=== PATIENT | female | born 1985 | race Caucasian/White ===

== ENCOUNTER 2020-07-02 11:32 | Emergency (ER) | payer OTHER, SELFPAY ==
--- NOTE | 2020-07-02 11:50 | XR_ITS ---
EXAMINATION: XR LUMBOSACRAL SPINE CLINICAL INFORMATION: Low back pain COMPARISON: Previous x-ray April 2019 TECHNIQUE: Three views of the lumbosacral spine. FINDINGS: Bone alignment is normal. No fracture or dislocation is seen. Disc spaces are normal. Paraspinal soft tissues are normal. XR/XR lumbar spine 2-3V IMPRESSION: Unremarkable examination.
[2020-07-02 12:22] LABS: Glucose Urine UA NEG (NEG); Leukocyte Esterase Urine 1+ (NEG); Nitrite Urine NEG (NEG); PH 6.5 (5.0-8.0); Specific Gravity - Urine 1.025 (1.005-1.025); Urine Blood NEG (NEG); Urine Ketones NEG (NEG); Urine Protein NEG (NEG-TRACE)
[2020-07-02] MEDS: Lidocaine 4 % Patch ADH..PATCH 1 PATCH TRANSDERMA (12:26)
[2020-07-02 12:27] VITALS: BP 118/79; PULSE 75; RESP 16; TEMP 36.5; O2SAT 98; BMI 35.1
[2020-07-02 12:29] LABS: Appearance Urine CLEAR; Color Urine YELLOW
[2020-07-02] MEDS: Ketorolac Tromethamine 60 MG/2 ML VIAL IM (12:43)
[2020-07-02 13:12] LABS: Bacteria Urine TRACE /LPF; RBC Urine 0 /HPF (0); Squamous Epithelial Cell Urine 2+ /LPF
--- NOTE | 2020-07-02 13:30 | ED_ITS ---
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 Pain is nonradiating mostly on her right side of the back. Also reports that she has had slight burning-like discomfort with voids. No abdominal pain, fever, chills. <Yuan Gaspar NP - Last Filed: 07/02/20 15:00> MD elicited complaint: back injury <Yuan Gaspar NP - Last Filed: 07/02/20 15:00> Pertinent past history: prior back pain <Yuan Gaspar NP - Last Filed: 07/02/20 15:00> Onset (ago): day(s) <Yuan Gaspar NP - Last Filed: 07/02/20 15:00> Timing: intermittent <Yuan Gaspar NP - Last Filed: 07/02/20 15:00> Severity: mild <Yuan Gaspar NP - Last Filed: 07/02/20 15:00> Similar Symptoms Previously: Yes <Yuan Gaspar NP - Last Filed: 07/02/20 15:00> Quality: burning <Yuan Gaspar NP - Last Filed: 07/02/20 15:00> Location: lumbar spine <Yuan Gaspar NP - Last Filed: 07/02/20 15:00> Radiation: none <Yuan Gaspar NP - Last Filed: 07/02/20 15:00> Exacerbating factors: movement <Yuan Gaspar NP - Last Filed: 07/02/20 15:00> Relieving factors: immobilization <Yuan Gaspar NP - Last Filed: 07/02/20 15:00> Context: while lifting and turning/twisting <Yuan Gaspar NP - Last Filed: 07/02/20 15:00> Associated symptoms: denies other symptoms <Yuan Gaspar NP - Last Filed: 07/02/20 15:00> Treatments prior to arrival: cold therapy <Yuan Gaspar NP - Last Filed: 07/02/20 15:00> Work related injury: Yes <Yuan Gaspar NP - Last Filed: 07/02/20 15:00> Related Data Home Medications: Previous Rx's Medication Instructions Recorded cyclobenzaprine 10 mg PO TID PRN #20 tab 07/02/20 ibuprofen 800 mg PO Q8H PRN #30 tab 07/02/20 lidocaine 1 patch TOPICAL Q24H PRN #10 ea 07/02/20 nitrofurantoin monohyd/m-cryst 100 mg PO Q12H 7 Days #14 cap 07/02/20 [Macrobid] nitrofurantoin monohyd/m-cryst 100 mg PO Q12H 7 Days #14 cap 07/02/20 [Macrobid] <Yuan Gaspar NP - Last Filed: 07/02/20 15:00> Allergies/Adverse Reactions: Allergies Allergy/AdvReac Type Severity Reaction Status Date / Time aspirin [ASPIRIN] Allergy Unknown DUE TO Unverified 05/02/20 18:36 KIDNEY FUNCTION (PT HAS 1 KIDNEY) NSAIDS (Non-Steroidal Allergy Unknown KIDNEY Unverified 05/02/20 18:36 Anti-Inflamma FUNCTION [NSAIDS (NON-STEROIDAL ANTI-INFLAMMA] oranges Allergy Unknown Uncoded 06/23/16 00:00 pt states no medication Allergy Unknown Uncoded 06/23/16 00:00 allerg strawberries Allergy Unknown Uncoded 06/23/16 00:00 <Yuan Gaspar NP - Last Filed: 07/02/20 15:00> Review of Systems Review of Systems: Constitutional: No Weight loss, No Fever, No Chills, No Night Sweats, No Fatigue, No Malaise ENT/Mouth: No Nasal Congestion, No Sinus Pain, No Hoarseness, No sore throat, No Rhinorrhea, No Swallowing Difficulty Eyes: No Eye Pain, No Swelling, No Redness, No Foreign Body, No Discharge, No Vision Changes Cardiovascular: No Chest Pain, No SOB, No Dyspnea on Exertion, No Orthopnea, No Edema, No Palpitations Respiratory: No Cough, No Sputum, No Wheezing, No Smoke Exposure, No Dyspnea Gastrointestinal: No Nausea, No Vomiting, No Diarrhea, No Constipation, No abdominal Pain, No Hematochezia, No Melena Genitourinary: no irregular bleeding, + Dysuria, No Urinary Frequency, No Hematuria, No Urinary Incontinence, No Urgency, No Flank Pain, No Urinary Flow Changes, No Hesitancy Musculoskeletal: As noted in HPI Skin: No Skin Lesions, No rash Neuro: No Weakness, No Numbness, No Paresthesias, No Loss of Consciousness, No Dizziness, No Headache Heme/Lymph: No Bruising, No Bleeding,No Lymphadenopathy Endocrine: No Polyuria, No Polydipsia, No Temperature Intolerance <Yuan Gaspar NP - Last Filed: 07/02/20 15:00> Yes all other systems are reviewed and are negative <Yaun Gaspar NP - Last Filed: 07/02/20 15:00> [facility] Past Medical History Attestation statement: The following information was validated with the patient. <Yuan Gaspar NP - Last Filed: 07/02/20 15:00> Medical History: Medical History (Updated 07/03/20 @ 00:00 by Hunter Powell) Congenital absence of kidney <Yuan Gaspar NP - Last Filed: 07/02/20 15:00> Surgical History: Surgical History (Updated 07/02/20 @ 12:30 by Soha Henriquez) H/O tubal ligation <Yuan Gaspar NP - Last Filed: 07/02/20 15:00> Social History Social History: Social History Advance Directives: No Advance Directives Information Provided: No <Yuan Gaspar NP - Last Filed: 07/02/20 15:00> Physical Exam Vital Signs: Vital Signs: Last Vital Signs Temp 97.7 F 07/02/20 12:27 Pulse 75 07/02/20 12:27 Resp 16 07/02/20 12:27 BP 118/79 11/17/20 12:27 Pulse Ox 98 07/02/20 12:27 Body Mass Index 35.1 Reviewed <Yuan Gaspar NP - Last Filed: 07/02/20 15:00> Vital Signs: Last Vital Signs Temp 97.7 F 07/02/20 12:27 Pulse 75 07/02/20 12:27 Resp 16 07/02/20 12:27 BP 118/79 07/02/20 12:27 Pulse Ox 98 07/02/20 12:27 Body Mass Index 35.1 <Michael Bosch MD - Last Filed: 07/08/20 15:49> Const: General: cooperative and healthy appearing; No acute distress or intoxicated appearing <Yuan Gaspar NP - Last Filed: 07/02/20 15:00> Nutritional Appearance: average body habitus <Yuan Gaspar NP - Last Filed: 07/02/20 15:00> Orientation/consciousness: patient oriented x3 <Yuan Gaspar NP - Last Filed: 07/02/20 15:00> HENMT: Head: Yes normal to inspection <Yuan Gaspar NP - Last Filed: 07/02/20 15:00> Ears: hearing grossly normal bilaterally <Yuan Gaspar NP - Last Filed: 07/02/20 15:00> Eyes: General: appearance normal, both eyes and all related structures <Yuan Gaspar NP - Last Filed: 07/02/20 15:00> Visual Paez: normal visual paez by confrontation <Yuan Gaspar NP - Last Filed: 07/02/20 15:00> Neck: Neck: Yes normal visual inspection and No tender <Yuangabriel Gaspar NP - Last Filed: 07/02/20 15:00> Thyroid: Thyroid normal <Yuan SUZANNE Gaspar - Last Filed: 07/02/20 15:00> Chest: Chest palpation & inspection: normal inspection of the chest <Yuan Gaspar NP - Last Filed: 07/02/20 15:00> Resp: Effort & Inspection: normal respiratory effort <Yuan Gaspar NP - Last Filed: 07/02/20 15:00> Cardio: Jugular venous distension: no JVD <Yuan Gaspar NP - Last Filed: 07/02/20 15:00> GI: Inspection: Yes normal to inspection <Yuan SUZANNE Gaspar - Last Filed: 07/02/20 15:00> Percussion: Yes normal to percussion <Yuangabriel Gaspar NP - Last Filed: 07/02/20 15:00> Auscultation: normal bowel sounds <Yuangabriel Gaspar NP - Last Filed: 07/02/20 15:00> : General: Yes no CVA tenderness <Yuangabriel Gaspar NP - Last Filed: 07/02/20 15:00> Back/Spine/Pelvis: Back: no CVA tenderness <Yuan SUZANNE Gaspar - Last Filed: 1 09/01/19 15:00> Skin: General skin exam: no rashes or lesions noted <Yuangabriel Gaspar NP - Last Filed: 07/02/20 15:00> Neuro: General: patient oriented x3 <Yuangabriel Gaspar NP - Last Filed: 07/02/20 15:00> Extrem: General: Yes normal to inspection <Yuangabriel Gaspar NP - Last Filed: 07/02/20 15:00> Course Course Course Narrative: I have reviewed the chart <Michael Bosch MD - Last Filed: 07/08/20 15:49> MDM - Back Pain/Injury MDM Narrative Medical decision making narrative: UA equivocal will start on Macrobid culture urine. Lumbar spine x-ray within normal limits. Patient feels much better after lidocaine and IM Toradol. Will discharge with short course of muscle relaxants, supportive care, return follow-up instructions. Stable for discharge. As it relates to the injury did occur at work instructed to [facility] before return to work. <Yuan Gaspar NP - Last Filed: 07/02/20 15:00> Differential Diagnosis Differential diagnosis: Likely strain of lumbar region; Unlikely lumbar radiculopathy, sciatica, renal colic, pyelonephritis, thoracic back pain, AAA and discitis <Yuangabriel Gapsar NP - Last Filed: 07/02/20 15:00> Lab Data Labs: Lab Results 07/02/20 Range/Units 12:03 Urine Color YELLOW Urine Appearance CLEAR Urine pH 6.5 (5.0-8.0) Ur Specific [place] 1.025 (1.005-1.025) Urine Protein NEG (NEG-TRACE) MG/DL Urine Glucose (UA) NEG (NEG) MG/DL Urine Ketones NEG (NEG) MG/DL Urine Blood NEG (NEG) Urine Nitrite NEG (NEG) Ur Leukocyte Esterase 1+ H (NEG) Urine RBC 0 (0) /HPF Urine WBC 5-9 H (0-4) /HPF Ur Squamous Epith Cells 2+ /LPF Urine Bacteria TRACE /LPF <Yuan Gaspar NP - Last Filed: 07/02/20 15:00> Lab Results 07/02/20 Range/Units 12:03 Urine Color YELLOW Urine Appearance CLEAR Urine pH 6.5 (5.0-8.0) Ur Specific [place] 1.025 (1.005-1.025) Urine Protein NEG (NEG-TRACE) MG/DL Urine Glucose (UA) NEG (NEG) MG/DL Urine Ketones NEG (NEG) MG/DL Urine Blood NEG (NEG) Urine Nitrite NEG (NEG) Ur Leukocyte Esterase 1+ H (NEG) Urine RBC 0 (0) /HPF Urine WBC 5-9 H (0-4) /HPF Ur Squamous Epith Cells 2+ /LPF Urine Bacteria TRACE /LPF <Michael Bosch MD - Last Filed: 07/08/20 15:49> Discharge Plan Discharge Clinical Impression: Strain of lumbar region, UTI (urinary tract infection) <Yuan Gaspar NP - Last Filed: 07/02/20 15:00> Patient Disposition: Home, Self-Care <Yuan Gaspar NP - Last Filed: 07/02/20 15:00> Instructions: Low Back Strain (ED), Urinary Urgency and Frequency (DC) <Yuan Gaspar NP - Last Filed: 07/02/20 15:00> Prescriptions: New nitrofurantoin monohyd/m-cryst [Macrobid] 100 mg capsule 100 mg PO Q12H 7 Days Qty: 14 RF: 0 cyclobenzaprine 10 mg tablet 10 mg PO TID PRN (Reason: muscle spasm) Qty: 20 RF: 0 lidocaine 4 % adhesive patch,medicated 1 patch topical Q24H PRN (Reason: pain) Qty: 10 RF: 0 ibuprofen 800 mg tablet 800 mg PO Q8H PRN (Reason: pain) Qty: 30 RF: 0 nitrofurantoin monohyd/m-cryst [Macrobid] 100 mg capsule 100 mg PO Q12H 7 Days Qty: 14 RF: 0 <Yuan Gaspar NP - Last Filed: 07/02/20 15:00> Referrals: [facility] [Primary Care Provider] - 2 days <Yuan Gaspar NP - Last Filed: 07/02/20 15:00> Stand Alone Forms: Work/School Release <Yuan Gaspar NP - Last Filed: 07/02/20 15:00> Interventions: ED Discharge Assessment Last Done: 07/02/20 13:51 <Yuan Gaspar NP - Last Filed: 07/02/20 15:00> Discharge Date/Time: 07/02/20 13:52 <Yuan Gaspar NP - Last Filed: 07/02/20 15:00>
--- NOTE | 2020-07-02 13:52 | PC.NURSE ---
SUZANNE KAHN AND PT AWARE XRAY/URINE TEST RESULTS,
== END 2020-07-02 13:52 | disposition home or self-care (01) ==
PROVIDERS: Nurse Practitioner Primary Care; Emergency Provider Emergency Medicine
DX: S39.012A Strain of muscle, fascia and tendon of lower back, initial encounter (principal); M54.6 Pain in thoracic spine; N39.0 Urinary tract infection, site not specified; X50.0XXA Overexertion from strenuous movement or load, initial encounter; Y93.E9 Activity, other interior property and clothing maintenance; Y92.009 Unspecified place in unspecified non-institutional (private) residence as the place of occurrence of the external cause; Y99.0 Civilian activity done for income or pay; Z79.899 Other long term (current) drug therapy
CPT/HCPCS: 72100; 81001; 87086; 96372; 99283; 99284; J1885

== ENCOUNTER 2020-10-08 07:08 | Emergency (ER) | payer OTHER, SELFPAY ==
--- NOTE | ~2020-10-08 | XR_ITS ---
EXAMINATION: XR HAND, LEFT CLINICAL INFORMATION: Pain COMPARISON: Radiographs left hand 01/09/2016 TECHNIQUE: PA, lateral, and oblique views of the left hand. FINDINGS: There is no acute or healing fracture, dislocation, destructive process. Bony mineralization normal. There is no joint narrowing or erosive change or chondrocalcinosis. XR/XR hand LT min 3V IMPRESSION: Normal left hand.
--- NOTE | 2020-10-08 07:42 | ED.EXTPRO ---
HPI - Extremity Problem General Chief complaint: Extremity Injury, Upper Stated complaint: HAND PAIN Time Seen by Provider: 10/08/20 07:13 Source: patient Mode of arrival: ambulatory Limitations: no limitations History of Present Illness HPI Narrative: L hand non dominant pain - some swelling and feels tingling in her index and middle finger - pain worse over palm does use hand frequently at work with repetitive movements seen at clinic put in cock up splint with no relief Complaint: joint swelling and joint paint Onset (ago): day(s) (few) Pain Consistency: constant Location: left and upper extremity Quality: stabbing, aching and constant Radiation: none Relieving factors: nothing Exacerbating factors: range of motion and palpation Associated symptoms: denies other symptoms Context: other (overuse at work) Related Data Previous Rx's Medication Instructions Recorded cyclobenzaprine 10 mg PO TID PRN #20 tab 07/02/20 ibuprofen 800 mg PO Q8H PRN #30 tab 07/02/20 lidocaine 1 patch TOPICAL Q24H PRN #10 ea 07/02/20 nitrofurantoin monohyd/m-cryst 100 mg PO Q12H 7 Days #14 cap 07/02/20 [Macrobid] nitrofurantoin monohyd/m-cryst 100 mg PO Q12H 7 Days #14 cap 07/02/20 [Macrobid] cyclobenzaprine 10 mg PO TID PRN #14 tab 10/08/20 hydrocodone-acetaminophen 1 tab PO Q6H PRN #12 tab 10/08/20 prednisone 40 mg PO DAILY 4 Days #8 tab 10/08/20 Allergies Allergy/AdvReac Type Severity Reaction Status Date / Time aspirin [ASPIRIN] Allergy Unknown DUE TO Verified 10/08/20 07:54 KIDNEY FUNCTION (PT HAS 1 KIDNEY) NSAIDS (Non-Steroidal Allergy Unknown KIDNEY Verified 10/08/20 07:54 Anti-Inflamma FUNCTION [NSAIDS (NON-STEROIDAL ANTI-INFLAMMA] oranges Allergy Unknown Unknown Uncoded 10/08/20 07:54 pt states no medication Allergy Unknown Unknown Uncoded 10/08/20 07:54 allerg strawberries Allergy Unknown Unknown Uncoded 10/08/20 07:54 Review of Systems Review of Systems: Constitutional : No Fever, No Chills ENT/Mouth : No Ear Pain, No Hoarseness Eyes: No Eye Pain, No Swelling Cardiovascular : No Chest Pain, No SOB Respiratory : No Cough, No Dyspnea Gastrointestinal : No Nausea, No Vomiting, No Diarrhea Musculoskeletal : positive joint pain, No Myalgias, pos Joint Swelling Skin : No Skin lacerations, No rash Neuro : No Weakness, No Numbness PMFSH Past Medical History Attestation statement: The following information was validated with the patient. Medical History Congenital absence of kidney Surgical History H/O tubal ligation Social History Social History (Updated 10/08/20 @ 07:42 by Daya Melgar DO) Smoking Status: Never smoker Advance Directives: No Advance Directives Information Provided: No Physical Exam Vital Signs: Vital Signs: Body Mass Index 40.1 Appearance: Alert. Oriented X3. No acute distress. Eyes: Pupils equal, round and reactive to light. ENT: Pharynx normal. Neck: Normal inspection. Neck supple. CVS: Normal heart rate and rhythm. Pulses normal. Respiratory: No respiratory distress. Breath sounds normal. Abdomen: Soft and nontender. Skin: Skin warm and dry. Normal skin color. Normal skin turgor. Extremities: No lower extremity edema. L wrist + tinels sign, + phalen + pain with compression for carpal tunnel, pain over carpal tunnel and applying pressure worsens pain and tingling in fingers, she is NV intact, no signs of infection Neuro: Oriented X 3. No motor deficit. No sensory deficit. MDM - Extremity (Nontraumatic) MDM Narrative Medical decision making narrative: 35yo female with a few days of L wrist pain and swelling over carpal tunnel area into fingers, has tingling at index and middle finger but NV intact, no signs of infection, exam + for acute carpal tunnel has cock up splint already will place on steroids/pain medictations and refer to PCP - discussed no work and wearing brace at night Discharge Plan Discharge Clinical Impression: Acute carpal tunnel syndrome Qualifiers: Laterality: left Qualified Code(s): G56.02 - Carpal tunnel syndrome, left upper limb Patient Disposition: Home, Self-Care Instructions: Paresthesia (ED) Additional Instructions: return to ED for any worsening symptoms or concerns YOU MUST WEAR THE BRACE AT NIGHT no acute findings on XRAY: FINDINGS: There is no acute or healing fracture, dislocation, destructive process. Bony mineralization normal. There is no joint narrowing or erosive change or chondrocalcinosis. XR/XR hand LT min 3V IMPRESSION: Normal left hand. Prescriptions: New cyclobenzaprine 10 mg tablet 10 mg PO TID PRN (Reason: muscle spasm) Qty: 14 RF: 0 hydrocodone-acetaminophen 5-325 mg tablet 1 tab PO Q6H PRN (Reason: pain) Qty: 12 RF: 0 prednisone 20 mg tablet 40 mg PO DAILY 4 Days Qty: 8 RF: 0 No Action nitrofurantoin monohyd/m-cryst [Macrobid] 100 mg capsule 100 mg PO Q12H 7 Days Qty: 14 RF: 0 cyclobenzaprine 10 mg tablet 10 mg PO TID PRN (Reason: muscle spasm) Qty: 20 RF: 0 lidocaine 4 % adhesive patch,medicated 1 patch topical Q24H PRN (Reason: pain) Qty: 10 RF: 0 ibuprofen 800 mg tablet 800 mg PO Q8H PRN (Reason: pain) Qty: 30 RF: 0 nitrofurantoin monohyd/m-cryst [Macrobid] 100 mg capsule 100 mg PO Q12H 7 Days Qty: 14 RF: 0 Referrals: Cristina Owen MD [Primary Care Provider] - 5 days (IF NOT BETTER) Stand Alone Forms: Work/School Release
[2020-10-08 07:49] VITALS: BMI 40.1
[2020-10-08] MEDS: predniSONE 20 MG TABLET 60 MG PO (08:03)
== END 2020-10-08 08:26 | disposition home or self-care (01) ==
PROVIDERS: Emergency Provider Emergency Medicine; PCP Internal Medicine
DX: G56.02 Carpal tunnel syndrome, left upper limb (principal); Z90.5 Acquired absence of kidney
CPT/HCPCS: 73130; 99283

== ENCOUNTER 2020-11-25 10:21 | Outpatient (REF) | payer OTHER, SELFPAY ==
[2020-11-25 11:33] LABS: COVID-19 Test Negative (Negative); IDNOW Serial# 55D5AD1C
== END 2020-11-25 10:22 | disposition home or self-care (01) ==
LOC: HO.LAB 10:21
PROVIDERS: Visit Provider Internal Medicine
DX: Z20.822 Contact with and (suspected) exposure to COVID-19 (principal)
CPT/HCPCS: 36415; 87635; C9803

== ENCOUNTER 2020-11-27 13:19 | Outpatient (REF) | payer OTHER, SELFPAY ==
[2020-11-27 15:00] LABS: COVID-19 Test Negative (Negative)
== END 2020-11-27 13:20 | disposition home or self-care (01) ==
LOC: HO.LAB 13:19
PROVIDERS: Visit Provider Internal Medicine
DX: Z20.822 Contact with and (suspected) exposure to COVID-19 (principal)
CPT/HCPCS: 36415; 87635; C9803

== ENCOUNTER 2021-01-13 09:52 | Emergency (ER) | payer OTHER, SELFPAY ==
--- NOTE | ~2021-01-13 | XR_ITS ---
EXAMINATION: XR HAND, LEFT CLINICAL INFORMATION: Laceration posterior T9 rib space. COMPARISON: None TECHNIQUE: PA, lateral, and oblique views of the left hand. FINDINGS: There is a punctate soft tissue gas in the thenar eminence but no laceration identified on this exam. No fracture. Alignment is anatomic. Joint spaces are maintained. No erosions or soft tissue calcifications. XR/XR hand LT min 3V IMPRESSION: Punctate gas seen in the first webspace thenar eminence. No foreign body or laceration seen. No bony or joint abnormality.
[2021-01-13 09:58] VITALS: BP 133/83; PULSE 95; RESP 16; TEMP 36.4; O2SAT 99; BMI 35.4
[2021-01-13] MEDS: Acetaminophen 325 MG TABLET 650 MG PO (10:53)
--- NOTE | 2021-01-13 12:02 | ED_ITS ---
HPI - Wound/Laceration General Chief Complaint: Wound/Laceration Stated Complaint: HAND LACERATION Time Seen by Provider: 01/13/21 11:26 Source: patient and family Mode of arrival: ambulatory Limitations: no limitations History of Present Illness HPI narrative: 35-year-old female with nonsignificant past medical history who presents to the emergency department with laceration left hand. Patient states she was making her daughter breakfast when the knife slipped and struck her left hand. Is uncertain how deep it went. Immediately applied pressure and came to the ED. Patient is not think she is up-to-date on her tetanus. Denies any other injuries or trauma from today's events. Denies any numbness or tingling in the left hand. Related Data Previous Rx's Medication Instructions Recorded cyclobenzaprine 10 mg PO TID PRN #20 tab 07/02/20 ibuprofen 800 mg PO Q8H PRN #30 tab 07/02/20 lidocaine 1 patch TOPICAL Q24H PRN #10 ea 07/02/20 nitrofurantoin monohyd/m-cryst 100 mg PO Q12H 7 Days #14 cap 07/02/20 [Macrobid] nitrofurantoin monohyd/m-cryst 100 mg PO Q12H 7 Days #14 cap 07/02/20 [Macrobid] cyclobenzaprine 10 mg PO TID PRN #14 tab 10/08/20 hydrocodone-acetaminophen 1 tab PO Q6H PRN #12 tab 10/08/20 prednisone 40 mg PO DAILY 4 Days #8 tab 10/08/20 Allergies Allergy/AdvReac Type Severity Reaction Status Date / Time aspirin [ASPIRIN] Allergy Unknown DUE TO Verified 10/08/20 07:54 KIDNEY FUNCTION (PT HAS 1 KIDNEY) NSAIDS (Non-Steroidal Allergy Unknown KIDNEY Verified 10/08/20 07:54 Anti-Inflamma FUNCTION [NSAIDS (NON-STEROIDAL ANTI-INFLAMMA] oranges Allergy Unknown Unknown Uncoded 10/08/20 07:54 pt states no medication Allergy Unknown Unknown Uncoded 10/08/20 07:54 allerg strawberries Allergy Unknown Unknown Uncoded 10/08/20 07:54 Review of Systems Review of Systems: Constitutional : No Weight loss, No Fever, No Chills, No Night Sweats, No Fatigue, No Malaise ENT/Mouth : No Hearing loss, No Ear Pain, No Nasal Congestion, No Sinus Pain, No Hoarseness, No sore throat, No Rhinorrhea, No Swallowing Difficulty Eyes: No Eye Pain, No Swelling, No Redness, No Foreign Body, No Discharge, No Vision Changes Cardiovascular : No Chest Pain, No SOB, No Dyspnea on Exertion, No Orthopnea, No Edema, No Palpitations Respiratory : No Cough, No Sputum, No Wheezing, No Smoke Exposure, No Dyspnea Gastrointestinal : No Nausea, No Vomiting, No Diarrhea, No Constipation, No abdominal Pain, No Hematochezia, No Melena Genitourinary : no irregular bleeding, No Dysuria, No Urinary Frequency, No Hematuria, No Urinary Incontinence, No Urgency, No Flank Pain, No Urinary Flow Changes, No Hesitancy Musculoskeletal : No joint pain, No Myalgias, No Joint Swelling Skin :+ left hand laceration Neuro : No Weakness, No Numbness, No Paresthesias, No Loss of Consciousness, No Dizziness, No Headache Psych : No Anxiety/Panic, No Depression, No SI/HI/AH/VH, No Social Issues, Heme/Lymph: No Bruising, No Bleeding,No Lymphadenopathy Endocrine : No Polyuria, No Polydipsia, No Temperature Intolerance [facility] Past Medical History Attestation statement: The following information was validated with the patient. Source: old records reviewed and nursing notes reviewed Medical History Congenital absence of kidney Surgical History H/O tubal ligation Social History Social History (Updated 10/08/20 @ 07:42 by Daya Melgar DO) Advance Directives: Yes Advance Directives Information Provided: Yes Advance Directives on File: No Patient : No Physical Exam Vital Signs: Vital Signs: Last Vital Signs Temp 97.6 F 01/13/21 09:58 Pulse 95 01/13/21 09:58 Resp 16 01/13/21 09:58 BP 133/83 01/13/21 09:58 Pulse Ox 99 01/13/21 09:58 Body Mass Index 35.4 vital signs have been reviewed as normal and appeared to be correct. Blood pressure normal. Heart rate normal. Respiration rate normal. Temperature normal. Oxygen saturation normal. Appearance: Alert. Oriented X3. No acute distress. Head: Normal external exam. Normocephalic. Atraumatic. No Dumont signs noted. No raccoon eyes noted Eyes: Conjunctiva and sclera normal. ENT: EAC normal. Moist mucous membranes. No drooling noted. No muffled voice noted. Neck: Normal inspection. Neck supple. FROM. No meningeal signs. CVS: Pulses normal throughout. Respiratory: No respiratory distress. Painless inspiration. No accessory muscle usage noted Abdomen: No visible injury noted. Back: Full range of motion noted. Skin: Skin warm and dry. Normal skin color. Normal skin turgor. Patient with wound to left hand, no active bleeding approx 2 cm in length located between thumb and 2nd digit in webbed space Extremities: No lower extremity edema. Extremities exhibit normal range of motion. Good radial pulse to affected hand , neurovascularly intact Neuro: Oriented X 3. No motor deficit. No sensory deficit. Course Reevaluation(s) Reevaluation #1: Patient's x-ray without evidence of fracture dislocation. Feel that discharge is safe laceration was repaired will discharge home at this time. Patient's tetanus was updated and pain is controlled Procedures Laceration Laceration 1: Site: hand Side (If applicable): left Size (cm): 2 Description: linear Depth: involves muscle layer Local Anesthetic: lidocaine 2% Amount of anesthesia used (mL): 7 Pre-repair: wound explored and irrigated extensively Skin layer closed with: nylon Size (cm): 5-0 Number of sutures: 4 Technique: simple, interrupted MDM - Wound/Laceration MDM Narrative Medical decision making narrative: Patient's vital signs are stable and she is afebrile patient presenting to the ED with left hand wound from a knife this morning while making breakfast. No active bleeding 2 cm in nature in the webspace between the thumb and 2nd digit. Will obtain x-rays patient is uncertain how deep the knife went patient does have preserved range of motion and is neurovascularly intact. Laceration will require repair pending x-ray will medicate with Motrin and continue to monitor. Patient hemodynamically stable at this time. Discharge Plan Discharge Clinical Impression: Laceration Patient Disposition: Home, Self-Care Instructions: Laceration (ED) Additional Instructions: You were seen in the emergency department today for left hand laceration. This was repaired with 4 sutures that are nonabsorbable and will need to be removed in 7-10 days. I understand you are traveling to [place] if this cannot be facilitated please return to the emergency department immediately when he return to have them removed. Continue to use Motrin Tylenol for pain control. Keep wound clean and dry. Do not get sutures wet. Prescriptions: No Action nitrofurantoin monohyd/m-cryst [Macrobid] 100 mg capsule 100 mg PO Q12H 7 Days Qty: 14 RF: 0 cyclobenzaprine 10 mg tablet 10 mg PO TID PRN (Reason: muscle spasm) Qty: 20 RF: 0 lidocaine 4 % adhesive patch,medicated 1 patch topical Q24H PRN (Reason: pain) Qty: 10 RF: 0 ibuprofen 800 mg tablet 800 mg PO Q8H PRN (Reason: pain) Qty: 30 RF: 0 nitrofurantoin monohyd/m-cryst [Macrobid] 100 mg capsule 100 mg PO Q12H 7 Days Qty: 14 RF: 0 cyclobenzaprine 10 mg tablet 10 mg PO TID PRN (Reason: muscle spasm) Qty: 14 RF: 0 hydrocodone-acetaminophen 5-325 mg tablet 1 tab PO Q6H PRN (Reason: pain) Qty: 12 RF: 0 prednisone 20 mg tablet 40 mg PO DAILY 4 Days Qty: 8 RF: 0 Referrals: Cristina Owen MD [Primary Care Provider] - 1 week (for suture removal ) Stand Alone Forms: Work/School Release Interventions: ED Discharge Assessment Last Done: 01/13/21 13:14 Discharge Date/Time: 01/13/21 13:15 Print Language: [place]
[2021-01-13] MEDS: oxyCODONE HCl Immed Release 5 MG TABLET PO (12:37)
[2021-01-13] MEDS: Diphth,Pertus(ACell),Tet Adult 0.5 ML SYRINGE IM (12:38)
[2021-01-13] MEDS: Lidocaine HCl 2 % MPF 5 ML VIAL SUBCUT (12:52)
== END 2021-01-13 13:15 | disposition home or self-care (01) ==
PROVIDERS: Emergency Provider Emergency Medicine Emergency Medical Services; PCP Internal Medicine
DX: S61.412A Laceration without foreign body of left hand, initial encounter (principal); W26.0XXA Contact with knife, initial encounter; Y93.G1 Activity, food preparation and clean up; Y92.010 Kitchen of single-family (private) house as the place of occurrence of the external cause; Y99.9 Unspecified external cause status
CPT/HCPCS: 12041; 73130; 90471; 90715; 99284

== ENCOUNTER → 2021-03-03 12:30 | Outpatient (BNVA) | payer MEDICAID, SELFPAY | PROVIDERS: PCP Internal Medicine; Referring Provider Internal Medicine; Visit Provider Physician Assistant | DX: E66.01 Morbid (severe) obesity due to excess calories (principal); Z68.41 Body mass index [BMI] 40.0-44.9, adult | CPT/HCPCS: 99202 ==

== ENCOUNTER 2021-03-10 14:34 | Outpatient (REF) | payer SELFPAY ==
--- NOTE | ~2021-03-10 | XR_ITS ---
EXAMINATION: XR CHEST CLINICAL INFORMATION: Obesity COMPARISON: None TECHNIQUE: 2 views of the chest were obtained. FINDINGS: No significant abnormality is noted involving the heart, lungs, mediastinum, bony thorax or soft tissues. XR/XR chest 2V IMPRESSION: Unremarkable examination.
--- NOTE | 2021-03-10 14:56 | ECG_ITS ---
Test Reason : MORBID OBESITY Blood Pressure : / mmHG Vent. Rate : 075 BPM Atrial Rate : 075 BPM P-R Int : 112 ms QRS Dur : 084 ms QT Int : 410 ms P-R-T Axes : 038 053 035 degrees QTc Int : 457 ms Normal sinus rhythm with sinus arrhythmia Normal ECG No previous ECGs available Referred By: Sol Lawrence Electronically Signed By:SANJIV HOGAN
== END 2021-03-10 14:35 | disposition home or self-care (01) ==
LOC: HO.XRAY 14:34
PROVIDERS: PCP Internal Medicine; Visit Provider Physician Assistant
DX: E66.01 Morbid (severe) obesity due to excess calories (principal); R06.02 Shortness of breath; Z68.41 Body mass index [BMI] 40.0-44.9, adult
CPT/HCPCS: 71046; 93005

== ENCOUNTER 2021-03-12 15:24 | Outpatient (REF) | payer MEDICAID, SELFPAY ==
[2021-03-13 14:41] LABS: H Pylori Breath Test NOT DETECTED (NOT DETECTED)
== END 2021-03-12 15:25 | disposition home or self-care (01) ==
LOC: HO.LNP 15:24
PROVIDERS: PCP Internal Medicine; Referring Provider Internal Medicine; Visit Provider Physician Assistant
DX: E66.01 Morbid (severe) obesity due to excess calories (principal); Z68.41 Body mass index [BMI] 40.0-44.9, adult; R06.02 Shortness of breath
CPT/HCPCS: 83013; 99211

== ENCOUNTER 2021-03-20 08:30 | Outpatient (REF) | payer MEDICAID, SELFPAY ==
--- NOTE | 2021-03-20 08:44 | EMG_ITS ---
Left median and ulnar motor and sensory studies were performed. Left radial sensory study was performed and paraspinal muscles were tested. IMPRESSION: No significant abnormality noted on this study. MD NADER Torre/RONALD / [id number]
[2021-03-20 09:06] LABS: MANUAL DIFF FLAG NO
[2021-03-20 09:25] LABS: Basophils Absolute Auto 0.1 X10*3/uL (0.0-0.2); Basophils Percent Auto 0.7 % (0-2); Eosinophils Absolute Auto 0.5 X10*3/uL (0.0-0.4); Eosinophils Percent Auto 7.1 % (0-4); Hematocrit 41.3 % (37-47); Hemoglobin 13.8 g/dl (12.0-16.0); Imm Gran Abs Auto 0.02 X10*3/uL (0.00-0.03); Imm Gran Pct Auto 0.3 % (0.0-0.4); Lymphocytes Absolute Auto 1.7 X10*3/uL (1.2-4.9); Lymphocytes Percent Auto 24.6 % (20-40); Mean Corpuscular HGB Conc 33.4 g/dl (31.0-35.0); Mean Corpuscular Hemoglobin 29.2 pg (27.0-33.0); Mean Corpuscular Volume 87.3 fL (80-98); Mean Platelet Volume 11.2 fL (9.4-12.3); Monocytes Absolute Auto 0.4 X10*3/uL (0.1-1.2); Monocytes Percent Auto 6.2 % (2-11); Neutrophils Absolute Auto 4.3 X10*3/uL (2.0-8.3); Neutrophils Percent Auto 61.1 % (45-73); Platelet Count 235 X10*3/uL (160-400); Red Blood Count 4.73 X10*6/uL (4.20-5.50); Red Cell Distribution Width 13.3 % (11.0-16.0); White Blood Count 7.1 X10*3/uL (4.8-10.8)
[2021-03-20 09:46] LABS: Estimated Average Glucose 105 mg/dL; Hemoglobin A1c % 5.3 %
[2021-03-20 09:50] LABS: Alanine Aminotransferase 18 U/L (0-31); Albumin Level 4.4 g/dL (3.5-5.0); Alkaline Phosphatase 75 U/L (39-117); Anion Gap 12 (12-20); Aspartate Amino Transferase 17 U/L (5-31); Bilirubin Total 0.7 mg/dL (0.0-1.0); Blood Urea Nitrogen 13 mg/dL (9-16); C Reactive Protein 1.08 mg/dL (< or = 0.50); Calcium 9.4 mg/dL (8.4-10.2); Carbon Dioxide 24 mmol/L (22-29); Chloride 105 mmol/L (96-108); Cholesterol 176 mg/dL; Estimated Glomerular Filt Rate > 60; Glucose Fasting 91 mg/dL (60-99); HDL Cholesterol 52 mg/dL; Iron 91 mcg/dL (30-160); LDL Cholesterol Calculated 106 mg/dl; Sodium 137 mmol/L (135-145); Total Protein 6.8 g/dL (6.5-8.0); Triglycerides 90 mg/dL
[2021-03-20 10:00] LABS: Percent Iron Saturation 34 % (15-50); Total Iron Binding Capacity 271 mcg/dL (228-428); Unsaturated Iron Binding 180 ug/dL
[2021-03-20 10:05] LABS: Ferritin 71 ng/mL (10-122); TSH reflex Free T4 0.33 uIU/mL (0.32-4.0); Vitamin D 25-OH Total 22.2 ng/mL (>30)
[2021-03-20 10:47] LABS: Folate 14.4 ng/mL (> or = 4.0); Vitamin B12 1342 pg/mL (200-900)
[2021-03-21 17:36] LABS: Insulin Level Total 9.7 uIU/mL
[2021-03-21 17:51] LABS: Calcium (PTHI) 9.3 mg/dL (8.6-10.2); PTHI 48 pg/mL (14-64)
[2021-03-23 16:06] LABS: Zinc 80 mcg/dL (60-130)
[2021-03-25 12:47] LABS: Vitamin B1 12 nmol/L (8-30)
[2021-03-25 19:46] LABS: Vitamin A 42 mcg/dL (38-98)
== END 2021-03-20 08:31 | disposition home or self-care (01) ==
LOC: HO.NEURO 08:30
PROVIDERS: Absent Provider Physician Assistant; PCP Internal Medicine; Visit Provider Internal Medicine
DX: E66.01 Morbid (severe) obesity due to excess calories (principal); R06.02 Shortness of breath; G56.02 Carpal tunnel syndrome, left upper limb; Z68.41 Body mass index [BMI] 40.0-44.9, adult
CPT/HCPCS: 36415; 80053; 80061; 82306; 82607; 82728; 82746; 83036; 83525; 83540; 83970; 84425; 84443; 84590; 84630; 85025; 86140; 95886; 95909

== ENCOUNTER → 2021-03-25 08:06 | Outpatient (BNVA) | payer MEDICAID, SELFPAY | PROVIDERS: PCP Internal Medicine; Visit Provider Dietitian, Registered ==

== ENCOUNTER 2021-03-31 15:45 | Outpatient (REF) | payer MEDICAID, SELFPAY ==
--- NOTE | ~2021-03-31 | XR_ITS ---
EXAMINATION: XR CHEST 2 VIEWS CLINICAL INFORMATION: Bronchitis. COMPARISON: None. TECHNIQUE: Frontal and lateral views of the chest were obtained. FINDINGS: The heart, great vessels, pulmonary vasculature and mediastinum are normal. The lungs show no focal infiltrate, effusion or pneumothorax. There is mild peribronchiolar wall thickening. There is no acute osseous abnormality. XR/XR chest 2V IMPRESSION: 1. No focal infiltrate or congestive heart failure is seen. 2. There is mild peribronchiolar wall thickening, consistent with acute bronchiolitis or reactive airways disease.
== END 2021-03-31 15:46 | disposition home or self-care (01) ==
LOC: HO.XRAY 15:45
PROVIDERS: Absent Provider Internal Medicine; PCP Internal Medicine; Visit Provider Emergency Medicine
DX: J40 Bronchitis, not specified as acute or chronic (principal)
CPT/HCPCS: 71046

== ENCOUNTER 2021-04-02 15:07 | Emergency (ER) | payer MEDICAID, SELFPAY ==
--- NOTE | ~2021-04-02 | XR_ITS ---
EXAMINATION: XR CHEST CLINICAL INFORMATION: Shortness of breath COMPARISON: 03/31/2021 TECHNIQUE: Frontal view of the chest was obtained. FINDINGS: Low lung volumes limits this exam. There is no obvious finding. No failure. No effusion. No infiltrate. The cardiac silhouette is within normal limits XR/XR chest 1V IMPRESSION: No acute finding. Low lung volumes limits the exam.
[2021-04-02 16:46] VITALS: BP 119/81; PULSE 89; RESP 18; TEMP 36.8; O2SAT 97; BMI 38.9
--- NOTE | 2021-04-02 16:46 | ED.SOB ---
HPI - SOB/Dyspnea General Chief Complaint: Dyspnea Stated Complaint: bronchitis Time Seen by Provider: 04/02/21 16:46 Related Data Home Medications Medication Instructions Recorded Confirmed albuterol sulfate 90 mcg/actuation 2 puff INHALATION Q6H PRN 03/03/21 03/03/21 aerosol inhaler Previous Rx's Medication Instructions Recorded cyclobenzaprine 10 mg tablet 10 mg PO TID PRN #20 tab 07/02/20 ibuprofen 800 mg tablet 800 mg PO Q8H PRN #30 tab 07/02/20 lidocaine 4 % topical patch 1 patch TOPICAL Q24H PRN #10 ea 07/02/20 nitrofurantoin 100 mg PO Q12H 7 Days #14 cap 07/02/20 monohydrate/macrocrystals 100 mg capsule (Macrobid) nitrofurantoin 100 mg PO Q12H 7 Days #14 cap 07/02/20 monohydrate/macrocrystals 100 mg capsule (Macrobid) cyclobenzaprine 10 mg tablet 10 mg PO TID PRN #14 tab 10/08/20 hydrocodone 5 mg-acetaminophen 325 1 tab PO Q6H PRN #12 tab 10/08/20 mg tablet prednisone 20 mg tablet 40 mg PO DAILY 4 Days #8 tab 10/08/20 cholecalciferol (vitamin D3) 1,250 1,250 mcg PO QWEEK 28 Days #4 cap 03/24/21 mcg (50,000 unit) capsule albuterol sulfate 2.5 mg INHALATION Q4-6H PRN #90 ml 04/02/21 azithromycin 250 mg tablet 250 mg PO DAILY 4 Days #4 tab 04/02/21 benzonatate 100 mg capsule 100 mg PO TID PRN #60 cap 04/02/21 (Rafael Obrien) Allergies Allergy/AdvReac Type Severity Reaction Status Date / Time aspirin [ASPIRIN] Allergy Unknown DUE TO Verified 04/02/21 16:46 KIDNEY FUNCTION (PT HAS 1 KIDNEY) NSAIDS (Non-Steroidal Allergy Unknown KIDNEY Verified 04/02/21 16:46 Anti-Inflamma FUNCTION [NSAIDS (NON-STEROIDAL ANTI-INFLAMMA] oranges Allergy Unknown Unknown Uncoded 03/03/21 12:59 pt states no medication Allergy Unknown Unknown Uncoded 03/03/21 12:59 allerg strawberries Allergy Unknown Unknown Uncoded 03/03/21 12:59 PMFSH Past Medical History Medical History (Updated 04/02/21 @ 21:18 by Yecenia Billingsley NP) Asthma Body mass index (BMI) of 40.1 to 44.9 in adult Bronchitis Congenital absence of kidney GERD (gastroesophageal reflux disease) Hypersomnolence Morbid obesity Osteoarthritis Shortness of breath Snoring Vitamin D deficiency Surgical History H/O tubal ligation Hx of wisdom tooth extraction Family History Family History Mother Diabetes Family history of thyroid problem Father Emphysema lung High cholesterol Hypertension Sister High cholesterol Hypertension Brother No problems noted. Daughter No problems noted. Daughter No problems noted. Social History Social History Alcohol intake: current Alcohol intake frequency: holidays/special occasions only Patient Tobacco Use Status: Former Tobacco user Cigarettes Per Day: 3 Advance Directives: No Advance Directives Information Provided: Yes Patient : No Physical Exam Vital Signs: Vital Signs: Last Vital Signs Temp 98.1 F 04/02/21 20:00 Pulse 72 04/02/21 20:00 Resp 16 04/02/21 20:00 BP 128/83 04/02/21 20:00 Pulse Ox 100 04/02/21 20:00 Body Mass Index 38.9 Course Course Course Narrative: This is a rapid medical in triage. This 35-year-old PMHx asthma, GERD, OA, congenital abscence of one kidney, bronchtitis presenting to the ED complaining of cough, SOB, CP when breathing and walking, loss of voice x few days, sent in because CXR showing bronchtiis. Per chart review x-ray on 03/31 did not show focal infiltrate or CHF there is mild peribronchial wall thickening consistent with bronchiolitis or reactive airway disease. Patient reports she is currently on prednisone, nasal spray, multiple Tums and Tylenol without relief. Was also tested for COVID-19 and negative a few days ago Lab /Ekg ordered in triage, full medical eval will be performed by ED provider MDM - SOB/Dyspnea Lab Data Result diagrams: 04/02/21 18:38 04/02/21 18:39 Labs: Lab Results 08/18/21 08/18/21 08/18/21 Range/Units 18:38 18:38 18:39 WBC 9.5 (4.8-10.8) X10*3/uL RBC 4.37 (4.20-5.50) X10*6/uL Hgb 12.9 (12.0-16.0) g/dl Hct 38.6 (37-47) % MCV 88.3 (80-98) fL MCH 29.5 (27.0-33.0) pg MCHC 33.4 (31.0-35.0) g/dl RDW 13.5 (11.0-16.0) % Plt Count 225 (160-400) X10*3/uL MPV 10.8 (9.4-12.3) fL Immature Gran % (Auto) 0.3 (0.0-0.4) % Neut % (Auto) 86.5 H (45-73) % Lymph % (Auto) 10.9 L (20-40) % [place] % (Auto) 2.2 (2-11) % Eos % (Auto) 0.0 (0-4) % Baso % (Auto) 0.1 (0-2) % Lymph # (Auto) 1.0 L (1.2-4.9) X10*3/uL [place] # (Auto) 0.2 (0.1-1.2) X10*3/uL Eos # (Auto) 0.0 (0.0-0.4) X10*3/uL Baso # (Auto) 0.0 (0.0-0.2) X10*3/uL Abs Immat Gran (auto) 0.03 (0.00-0.03) X10*3/uL Absolute Neuts (auto) 8.2 (2.0-8.3) X10*3/uL Absolute Nucleated RBC 0.000 (0.0-0.012) X10*3/uL Nucleated RBC % (auto) 0.0 (0.0-0.2) /100WBC Sodium 140 (135-145) mmol/L Potassium 4.6 (3.3-5.1) mmol/L Chloride 106 (96-108) mmol/L Carbon Dioxide 24 (22-29) mmol/L Anion Gap 15 (12-20) BUN 16 (9-16) mg/dL Creatinine 0.76 (0.5-1.4) mg/dL Estim Creat Clear Calc 126.1 Estimated GFR > 60 Random Glucose 168 H (60-115) mg/dL Calcium 9.3 (8.4-10.2) mg/dL Magnesium 2.0 (1.6-2.6) mg/dL Total Bilirubin 0.2 (0.0-1.0) mg/dL Direct Bilirubin < 0.2 (0.0-0.5) mg/dL AST 32 H D (5-31) U/L ALT 47 H (0-31) U/L Alkaline Phosphatase 75 (39-117) U/L Troponin I High Sens < 3.5 (<3.5-17.0) ng/L B-Natriuretic Peptide 38 (<100) pg/mL Total Protein 7.0 (6.5-8.0) g/dL Albumin 4.4 (3.5-5.0) g/dL Discharge Plan Discharge Clinical Impression: Bronchitis Patient Disposition: Home, Self-Care Instructions: Acute Bronchitis (ED), How to Use a Nebulizer (ED), Wheezing (ED) Additional Instructions: Se le evalu? por s?ntomas de las v?as respiratorias superiores compatibles con bronquitis. Le recetamos azitromicina, que es un antibi?juni. Contin?e tomando chi medicamento pham los pr?ximos 4 d?as. Le di la primera dosis en el servicio de urgencias. Utilice tratamientos con nebulizador seg?n sea necesario. Britt un seguimiento con el neum?logo Dr. Klein. Llame y solicite dennys kathryn. Arlene por elegir chi departamento de emergencias para singh evaluaci?n. Britt un seguimiento con singh m?dico de atenci?n primaria seg?n sea necesario. Regrese al departamento de emergencias por cualquier s?ntoma nuevo, preocupante o que empeore. You were evaluated for upper respiratory symptoms consistent with bronchitis. We prescribed azithromycin, which is an antibiotic. Please continue to take this medication for the next 4 days. Gave you 1st dose in the emergency department. Please use nebulizer treatments as needed. Please follow-up with program arranger Dr. Gonzalez. Please call and request an appointment. Thank you for choosing this emergency department for evaluation. Please follow-up with primary care physician as needed. Return to the emergency department for any new, concerning, or worsening symptoms. Prescriptions: New albuterol sulfate 2.5 mg /3 mL (0.083 %) solution for nebulization 2.5 mg inhalation Q4-6H PRN (Reason: shortness of breath or wheezing) Qty: 90 RF: 0 benzonatate [Tessalon Perles] 100 mg capsule 100 mg PO TID PRN (Reason: cough) Qty: 60 RF: 0 azithromycin 250 mg tablet 250 mg PO DAILY 4 Days Qty: 4 RF: 0 No Action cholecalciferol (vitamin D3) 1,250 mcg (50,000 unit) capsule 1,250 mcg PO QWEEK 28 Days Qty: 4 RF: 1 nitrofurantoin monohyd/m-cryst [Macrobid] 100 mg capsule 100 mg PO Q12H 7 Days Qty: 14 RF: 0 cyclobenzaprine 10 mg tablet 10 mg PO TID PRN (Reason: muscle spasm) Qty: 20 RF: 0 lidocaine 4 % adhesive patch,medicated 1 patch topical Q24H PRN (Reason: pain) Qty: 10 RF: 0 ibuprofen 800 mg tablet 800 mg PO Q8H PRN (Reason: pain) Qty: 30 RF: 0 nitrofurantoin monohyd/m-cryst [Macrobid] 100 mg capsule 100 mg PO Q12H 7 Days Qty: 14 RF: 0 cyclobenzaprine 10 mg tablet 10 mg PO TID PRN (Reason: muscle spasm) Qty: 14 RF: 0 hydrocodone-acetaminophen 5-325 mg tablet 1 tab PO Q6H PRN (Reason: pain) Qty: 12 RF: 0 prednisone 20 mg tablet 40 mg PO DAILY 4 Days Qty: 8 RF: 0 albuterol sulfate 90 mcg/actuation HFA aerosol inhaler 2 puff inhalation Q6H PRNRF: 0 Referrals: Juan Gonzalez MD [Physician] - 2 days (Evaluation for asthma) Stand Alone Forms: Work/School Release Interventions: ED Discharge Assessment Last Done: 04/02/21 21:33 Discharge Date/Time: 04/02/21 21:35
--- NOTE | 2021-04-02 16:50 | ECG_ITS ---
Test Reason : DYSPNEA Blood Pressure : / mmHG Vent. Rate : 061 BPM Atrial Rate : 061 BPM P-R Int : 122 ms QRS Dur : 084 ms QT Int : 398 ms P-R-T Axes : 044 048 038 degrees QTc Int : 400 ms Normal sinus rhythm with sinus arrhythmia Normal ECG When compared with ECG of 10-MAR-2021 15:03, No significant change was found Referred By: Lorin Gamble Electronically Signed By:MARY CASTELAN
[2021-04-02 18:52] LABS: MANUAL DIFF FLAG NO
[2021-04-02 18:55] LABS: Basophils Percent Auto 0.1 % (0-2); Hematocrit 38.6 % (37-47); Hemoglobin 12.9 g/dl (12.0-16.0); Imm Gran Abs Auto 0.03 X10*3/uL (0.00-0.03); Imm Gran Pct Auto 0.3 % (0.0-0.4); Lymphocytes Percent Auto 10.9 % (20-40); Mean Corpuscular HGB Conc 33.4 g/dl (31.0-35.0); Mean Corpuscular Hemoglobin 29.5 pg (27.0-33.0); Mean Corpuscular Volume 88.3 fL (80-98); Mean Platelet Volume 10.8 fL (9.4-12.3); Monocytes Absolute Auto 0.2 X10*3/uL (0.1-1.2); Monocytes Percent Auto 2.2 % (2-11); Neutrophils Absolute Auto 8.2 X10*3/uL (2.0-8.3); Neutrophils Percent Auto 86.5 % (45-73); Platelet Count 225 X10*3/uL (160-400); Red Blood Count 4.37 X10*6/uL (4.20-5.50); Red Cell Distribution Width 13.5 % (11.0-16.0); White Blood Count 9.5 X10*3/uL (4.8-10.8)
[2021-04-02 19:28] LABS: Alanine Aminotransferase 47 U/L (0-31); Albumin Level 4.4 g/dL (3.5-5.0); Alkaline Phosphatase 75 U/L (39-117); Anion Gap 15 (12-20); Aspartate Amino Transferase 32 U/L (5-31); Bilirubin Direct < 0.2 mg/dL (0.0-0.5); Bilirubin Total 0.2 mg/dL (0.0-1.0); Calcium 9.3 mg/dL (8.4-10.2); Chloride 106 mmol/L (96-108); Creatinine Clr Calc Pharmacy 126.1; Estimated Glomerular Filt Rate > 60; Glucose Random 168 mg/dL (60-115); Potassium 4.6 mmol/L (3.3-5.1); Sodium 140 mmol/L (135-145)
[2021-04-02 19:31] LABS: B Type Natriuretic Peptide 38 pg/mL (<100); Troponin-I High Sensitivity < 3.5 ng/L (<3.5-17.0)
[2021-04-02 19:38] LABS: Blood Urea Nitrogen 16 mg/dL (9-16); Carbon Dioxide 24 mmol/L (22-29)
[2021-04-02 20:00] VITALS: BP 128/83; PULSE 72; RESP 16; TEMP 36.7; O2SAT 100
--- NOTE | 2021-04-02 20:17 | ED_ITS ---
HPI - SOB/Dyspnea General Chief Complaint: Dyspnea Stated Complaint: bronchitis Time Seen by Provider: 04/02/21 16:46 Source: patient Mode of arrival: ambulatory Limitations: no limitations History of Present Illness HPI Narrative: 35-year-old female presents the emergency department for evaluation because she was diagnosed with bronchitis. Patient states that she has had upper respiratory symptoms off and on for 2 months and has taken multiple medications which all have been ineffective. She was referred to e mergency department by her primary care physician, was not given any antibiotics or any other medications today. She does not report any chest pain or pressure, palpitations, abdominal pain, abdominal distention, dysuria, hematuria, or any other concerning symptoms. MD elicited complaint: shortness of breath and cough Onset (ago): month(s) Context: recent illness Timing: constant Severity: moderate Exacerbating factors: coughing Relieving factors: nothing Known history of: asthma Associated symptoms: denies other symptoms Treatment prior to arrival: none Related Data Home oxygen amount: none Home Medications Medication Instructions Recorded Confirmed albuterol sulfate 90 mcg/actuation 2 puff INHALATION Q6H PRN 03/03/21 03/03/21 aerosol inhaler Previous Rx's Medication Instructions Recorded cyclobenzaprine 10 mg tablet 10 mg PO TID PRN #20 tab 07/02/20 ibuprofen 800 mg tablet 800 mg PO Q8H PRN #30 tab 07/02/20 lidocaine 4 % topical patch 1 patch TOPICAL Q24H PRN #10 ea 07/02/20 nitrofurantoin 100 mg PO Q12H 7 Days #14 cap 07/02/20 monohydrate/macrocrystals 100 mg capsule (Macrobid) nitrofurantoin 100 mg PO Q12H 7 Days #14 cap 07/02/20 monohydrate/macrocrystals 100 mg capsule (Macrobid) cyclobenzaprine 10 mg tablet 10 mg PO TID PRN #14 tab 10/08/20 hydrocodone 5 mg-acetaminophen 325 1 tab PO Q6H PRN #12 tab 10/08/20 mg tablet prednisone 20 mg tablet 40 mg PO DAILY 4 Days #8 tab 10/08/20 cholecalciferol (vitamin D3) 1,250 1,250 mcg PO QWEEK 28 Days #4 cap 03/24/21 mcg (50,000 unit) capsule albuterol sulfate 2.5 mg INHALATION Q4-6H PRN #90 ml 04/02/21 azithromycin 250 mg tablet 250 mg PO DAILY 4 Days #4 tab 04/02/21 benzonatate 100 mg capsule 100 mg PO TID PRN #60 cap 04/02/21 (Lolikeishalonny Emilianopam) Allergies Allergy/AdvReac Type Severity Reaction Status Date / Time aspirin [ASPIRIN] Allergy Unknown DUE TO Verified 04/02/21 16:46 KIDNEY FUNCTION (PT HAS 1 KIDNEY) NSAIDS (Non-Steroidal Allergy Unknown KIDNEY Verified 04/02/21 16:46 Anti-Inflamma FUNCTION [NSAIDS (NON-STEROIDAL ANTI-INFLAMMA] oranges Allergy Unknown Unknown Uncoded 03/03/21 12:59 pt states no medication Allergy Unknown Unknown Uncoded 03/03/21 12:59 allerg strawberries Allergy Unknown Unknown Uncoded 03/03/21 12:59 Review of Systems Review of Systems: Constitutional: No Fever, No Chills ENT/Mouth: Positive hoarse voice, No sore throat, No Rhinorrhea, No Swallowing Difficulty Eyes: No Eye Pain, No Swelling, No Redness Cardiovascular: No Chest Pain, positive SOB, No Orthopnea, positive Edema Respiratory: Positive Cough, No Sputum, No Wheezing, positive dyspnea Gastrointestinal: No Nausea, No Vomiting, No Diarrhea, No abdominal Pain, No Hematochezia, No Melena Genitourinary: No Dysuria, No Urinary Frequency, No Hematuria Musculoskeletal: No joint pain, No Myalgias Skin: No Skin Lesions, No rash Neuro: No Weakness, No Numbness, No Dizziness, No Headache Psych: No Anxiety/Panic, No Depression Heme/Lymph: No Bruising, No Lymphadenopathy Endocrine: No Polyuria, No Polydipsia Yes all other systems are reviewed and are negative [facility] Past Medical History Attestation statement: The following information was validated with the patient. Source: old records reviewed Medical History (Updated 04/02/21 @ 21:18 by Yecenia Billingsley NP) Asthma Body mass index (BMI) of 40.1 to 44.9 in adult Bronchitis Congenital absence of kidney GERD (gastroesophageal reflux disease) Hypersomnolence Morbid obesity Osteoarthritis Shortness of breath Snoring Vitamin D deficiency Surgical History H/O tubal ligation Hx of wisdom tooth extraction Family History Family History Mother Diabetes Family history of thyroid problem Father Emphysema lung High cholesterol Hypertension Sister High cholesterol Hypertension Brother No problems noted. Daughter No problems noted. Daughter No problems noted. Social History Social History Alcohol intake: current Alcohol intake frequency: holidays/special occasions only Patient Tobacco Use Status: Former Tobacco user Cigarettes Per Day: 3 Advance Directives: No Advance Directives Information Provided: Yes Patient : No Physical Exam Vital Signs: Vital Signs: Last Vital Signs Temp 98.1 F 04/02/21 20:00 Pulse 72 04/02/21 20:00 Resp 16 04/02/21 20:00 BP 128/83 04/02/21 20:00 Pulse Ox 100 04/02/21 20:00 Body Mass Index 38.9 Appearance: Alert. Oriented X3. No acute distress. Eyes: Pupils equal, round and reactive to light. ENT: Pharynx normal. Neck: Normal inspection. Neck supple. CVS: Normal heart rate and rhythm. Pulses normal. Respiratory: No respiratory distress. Minimal expiratory wheezing noted. Abdomen: Soft and nontender. Skin: Skin warm and dry. Normal skin color. Normal skin turgor. Extremities: No lower extremity edema. Gait well balanced well coordinated. Neuro: No motor deficit. No sensory deficit. Cranial nerves 2-12 intact. Course Course Course Narrative: 35-year-old female presents with upper respiratory symptoms and diagnosis of bronchitis. Patient was protocol while waiting in the emergency department for shortness of breath, BNP and troponins negative, EKG is normal sinus, no elevated white count. Chest x-ray is pending. Wells DVT and PE score is 0. Chest x-ray negative for acute findings. Patient is visibly upset about waiting for long periods of time, emotional support was provided with poor effect. Will discharge home with albuterol neb prescription and referral to pulmonology. Patient verbalized understanding of and agrees to plan of care to discharge home. polls or surveys interviewer utilized for all correspondence. Google translate utilized for discharge instructions. MDM - SOB/Dyspnea Differential Diagnosis Differential diagnosis: Likely acute exacerbation of chronic obstructive airways disease, pneumonia and asthma with exacerbation Medical Records Attestation: I reviewed the patient's medical records. Lab Data Attestation: I reviewed the patient's lab results. Result diagrams: 04/02/21 18:38 04/02/21 18:39 Labs: Lab Results 04/02/21 04/02/21 04/02/21 Range/Units 18:38 18:38 18:39 WBC 9.5 (4.8-10.8) X10*3/uL RBC 4.37 (4.20-5.50) X10*6/uL Hgb 12.9 (12.0-16.0) g/dl Hct 38.6 (37-47) % MCV 88.3 (80-98) fL MCH 29.5 (27.0-33.0) pg MCHC 33.4 (31.0-35.0) g/dl RDW 13.5 (11.0-16.0) % Plt Count 225 (160-400) X10*3/uL MPV 10.8 (9.4-12.3) fL Immature Gran % (Auto) 0.3 (0.0-0.4) % Neut % (Auto) 86.5 H (45-73) % Lymph % (Auto) 10.9 L (20-40) % [place] % (Auto) 2.2 (2-11) % Eos % (Auto) 0.0 (0-4) % Baso % (Auto) 0.1 (0-2) % Lymph # (Auto) 1.0 L (1.2-4.9) X10*3/uL [place] # (Auto) 0.2 (0.1-1.2) X10*3/uL Eos # (Auto) 0.0 (0.0-0.4) X10*3/uL Baso # (Auto) 0.0 (0.0-0.2) X10*3/uL Abs Immat Gran (auto) 0.03 (0.00-0.03) X10*3/uL Absolute Neuts (auto) 8.2 (2.0-8.3) X10*3/uL Absolute Nucleated RBC 0.000 (0.0-0.012) X10*3/uL Nucleated RBC % (auto) 0.0 (0.0-0.2) /100WBC Sodium 140 (135-145) mmol/L Potassium 4.6 (3.3-5.1) mmol/L Chloride 106 (96-108) mmol/L Carbon Dioxide 24 (22-29) mmol/L Anion Gap 15 (12-20) BUN 16 (9-16) mg/dL Creatinine 0.76 (0.5-1.4) mg/dL Estim Creat Clear Calc 126.1 Estimated GFR > 60 Random Glucose 168 H (60-115) mg/dL Calcium 9.3 (8.4-10.2) mg/dL Magnesium 2.0 (1.6-2.6) mg/dL Total Bilirubin 0.2 (0.0-1.0) mg/dL Direct Bilirubin < 0.2 (0.0-0.5) mg/dL AST 32 H D (5-31) U/L ALT 47 H (0-31) U/L Alkaline Phosphatase 75 (39-117) U/L Troponin I High Sens < 3.5 (<3.5-17.0) ng/L B-Natriuretic Peptide 38 (<100) pg/mL Total Protein 7.0 (6.5-8.0) g/dL Albumin 4.4 (3.5-5.0) g/dL Imaging Data Chest x-ray: Attestation: I personally reviewed and interpreted this imaging study as follows: Radiologist's impression: EXAMINATION: XR CHEST CLINICAL INFORMATION: Shortness of breath COMPARISON: 03/31/2021 TECHNIQUE: Frontal view of the chest was obtained. FINDINGS: Low lung volumes limits this exam. There is no obvious finding. No failure. No effusion. No infiltrate. The cardiac silhouette is within normal limits XR/XR chest 1V IMPRESSION: No acute finding. Low lung volumes limits the exam. ECG Data Attestation: I personally reviewed and interpreted this ECG as follows: ECG interpretation date: 04/02/21 ECG interpretation time: 18:43 Prior ECG tracings: available for review Interpretation: Vent. rate 61 BPM PA interval 122 ms QRS duration 84 ms QT/QTc 398/400 ms P-R-T axes 44 48 38 Normal sinus rhythm with sinus arrhythmia Normal ECG When compared with ECG of 10-MAR-2021 15:03, No significant change was found Discharge Plan Discharge Clinical Impression: Bronchitis Patient Disposition: Home, Self-Care Instructions: Acute Bronchitis (ED), How to Use a Nebulizer (ED), Wheezing (ED) Additional Instructions: Se le evalu? por s?ntomas de las v?as respiratorias superiores compatibles con bronquitis. Le recetamos azitromicina, que es un antibi?juni. Contin?e tomando chi medicamento pham los pr?ximos 4 d?as. Le di la primera dosis en el servicio de urgencias. Utilice tratamientos con nebulizador seg?n sea necesario. Britt un seguimiento con el neum?logo Dr. Snell?isaiah. Llame y solicite dennys kathryn. Arlene por elegir chi departamento de emergencias para singh evaluaci?n. Britt un seguimiento con singh m?dico de atenci?n primaria seg?n sea necesario. Regrese al departamento de emergencias por cualquier s?ntoma nuevo, preocupante o que empeore. You were evaluated for upper respiratory symptoms consistent with bronchitis. We prescribed azithromycin, which is an antibiotic. Please continue to take this medication for the next 4 days. Gave you 1st dose in the emergency department. Please use nebulizer treatments as needed. Please follow-up with spring tier Dr. Gonzalez. Please call and request an appointment. Thank you for choosing this emergency department for evaluation. Please follow-up with primary care physician as needed. Return to the emergency department for any new, concerning, or worsening symptoms. Prescriptions: New albuterol sulfate 2.5 mg /3 mL (0.083 %) solution for nebulization 2.5 mg inhalation Q4-6H PRN (Reason: shortness of breath or wheezing) Qty: 90 RF: 0 benzonatate [Tessalon Perles] 100 mg capsule 100 mg PO TID PRN (Reason: cough) Qty: 60 RF: 0 azithromycin 250 mg tablet 250 mg PO DAILY 4 Days Qty: 4 RF: 0 No Action cholecalciferol (vitamin D3) 1,250 mcg (50,000 unit) capsule 1,250 mcg PO QWEEK 28 Days Qty: 4 RF: 1 nitrofurantoin monohyd/m-cryst [Macrobid] 100 mg capsule 100 mg PO Q12H 7 Days Qty: 14 RF: 0 cyclobenzaprine 10 mg tablet 10 mg PO TID PRN (Reason: muscle spasm) Qty: 20 RF: 0 lidocaine 4 % adhesive patch,medicated 1 patch topical Q24H PRN (Reason: pain) Qty: 10 RF: 0 ibuprofen 800 mg tablet 800 mg PO Q8H PRN (Reason: pain) Qty: 30 RF: 0 nitrofurantoin monohyd/m-cryst [Macrobid] 100 mg capsule 100 mg PO Q12H 7 Days Qty: 14 RF: 0 cyclobenzaprine 10 mg tablet 10 mg PO TID PRN (Reason: muscle spasm) Qty: 14 RF: 0 hydrocodone-acetaminophen 5-325 mg tablet 1 tab PO Q6H PRN (Reason: pain) Qty: 12 RF: 0 prednisone 20 mg tablet 40 mg PO DAILY 4 Days Qty: 8 RF: 0 albuterol sulfate 90 mcg/actuation HFA aerosol inhaler 2 puff inhalation Q6H PRNRF: 0 Referrals: Juan Gonzalez MD [Physician] - 2 days (Evaluation for asthma) Stand Alone Forms: Work/School Release Interventions: ED Discharge Assessment Last Done: 04/02/21 21:33 Discharge Date/Time: 04/02/21 21:35
[2021-04-02] MEDS: Azithromycin 500 MG TABLET PO (20:55)
--- NOTE | 2021-04-02 20:59 | PC.NURSE ---
pt refusing covid swab, states she was swabbed for covid yesterday at [facility] and was called today with a negative result provider (Yecenia Garcia) notified
== END 2021-04-02 21:35 | disposition home or self-care (01) ==
PROVIDERS: Physician Assistant; Emergency Provider Emergency Medicine; PCP Internal Medicine
DX: J40 Bronchitis, not specified as acute or chronic (principal); R06.02 Shortness of breath; Z79.899 Other long term (current) drug therapy
CPT/HCPCS: 36415; 71045; 80048; 80076; 83735; 83880; 84484; 85025; 93005; 99284

== ENCOUNTER 2021-04-11 13:53 | Outpatient (REF) | payer MEDICAID, SELFPAY ==
[2021-04-11 15:49] LABS: MANUAL DIFF FLAG NO
[2021-04-11 15:53] LABS: Basophils Percent Auto 0.4 % (0-2); Eosinophils Absolute Auto 0.4 X10*3/uL (0.0-0.4); Eosinophils Percent Auto 3.7 % (0-4); Hematocrit 39.7 % (37-47); Imm Gran Abs Auto 0.03 X10*3/uL (0.00-0.03); Imm Gran Pct Auto 0.3 % (0.0-0.4); Lymphocytes Absolute Auto 2.9 X10*3/uL (1.2-4.9); Lymphocytes Percent Auto 26.7 % (20-40); Mean Corpuscular HGB Conc 32.7 g/dl (31.0-35.0); Mean Corpuscular Volume 88.6 fL (80-98); Mean Platelet Volume 10.3 fL (9.4-12.3); Monocytes Absolute Auto 0.8 X10*3/uL (0.1-1.2); Monocytes Percent Auto 6.8 % (2-11); Neutrophils Absolute Auto 6.8 X10*3/uL (2.0-8.3); Neutrophils Percent Auto 62.1 % (45-73); Platelet Count 260 X10*3/uL (160-400); Red Blood Count 4.48 X10*6/uL (4.20-5.50); Red Cell Distribution Width 13.7 % (11.0-16.0)
[2021-04-11 16:01] LABS: D Dimer < 200 NG/ML
[2021-04-11 16:13] LABS: Anion Gap 13 (12-20); Blood Urea Nitrogen 17 mg/dL (9-16); Calcium 9.1 mg/dL (8.4-10.2); Carbon Dioxide 27 mmol/L (22-29); Chloride 104 mmol/L (96-108); Estimated Glomerular Filt Rate > 60; Glucose Random 84 mg/dL (60-115); Sodium 140 mmol/L (135-145)
[2021-04-11 16:38] LABS: Erythrocyte Sedimentation Rate 8 MM/HR (0-20)
[2021-04-12 17:12] LABS: IgA 143 mg/dL (47-310); IgG 597 mg/dL (600-1640); IgM 41 mg/dL (50-300)
== END 2021-04-11 13:54 | disposition home or self-care (01) ==
LOC: HO.LAB 13:53
PROVIDERS: PCP Internal Medicine; Visit Provider Hospitalist
DX: J45.50 Severe persistent asthma, uncomplicated (principal); D72.10 Eosinophilia, unspecified
CPT/HCPCS: 36415; 80048; 82784; 82785; 85025; 85379; 85652; 86003; 99202

== ENCOUNTER → 2021-04-16 08:24 | Outpatient (BNVA) | payer MEDICAID, SELFPAY | PROVIDERS: PCP Internal Medicine; Visit Provider Dietitian, Registered | DX: E66.01 Morbid (severe) obesity due to excess calories (principal) | CPT/HCPCS: 97802 ==

== ENCOUNTER → 2021-04-18 07:32 | Outpatient (BNVA) | payer MEDICAID, SELFPAY | PROVIDERS: PCP Internal Medicine; Visit Provider Surgery ==

== ENCOUNTER 2021-05-02 12:46 | Outpatient (REF) | payer MEDICAID, SELFPAY ==
--- NOTE | 2021-05-02 16:42 | PFT_ITS ---
FLOWS: FEV1 of 79% of predicted at 2.57 L. FVC 78% of predicted at 3.02 L. FEV1 to FVC ratio of 0.85. Positive bronchodilator response. LUNG VOLUMES: Total lung capacity 84% of predicted at 4.37 L. Residual volume 131% of predicted at 2.0 L. Slow vital capacity 64% of predicted at 2.37 L. Expiratory reserve volume 23% of predicted at 0.32 L. Diffusion capacity is normal. IMPRESSION: No obstructive or restrictive ventilatory defect. Positive bronchodilator response. Decreased expiratory reserve volume suggests extrathoracic restriction likely secondary to abdominal obesity. Bladimir Law MD AP/MODL / [id number]
== END 2021-05-02 12:47 | disposition home or self-care (01) ==
LOC: HO.RESP 12:46
PROVIDERS: PCP Internal Medicine; Visit Provider Hospitalist
DX: J45.909 Unspecified asthma, uncomplicated (principal)
CPT/HCPCS: 94060; 94727; 94729

== ENCOUNTER → 2021-05-05 14:41 | Outpatient (BNVA) | payer MEDICAID, SELFPAY | PROVIDERS: PCP Internal Medicine; Referring Provider Surgery; Visit Provider Dietitian, Registered | DX: E66.01 Morbid (severe) obesity due to excess calories (principal); E55.9 Vitamin D deficiency, unspecified; Z68.42 Body mass index [BMI] 45.0-49.9, adult; Z87.891 Personal history of nicotine dependence | CPT/HCPCS: 97803 ==

== ENCOUNTER 2021-05-07 15:35 | Outpatient (REF) | payer MEDICAID, SELFPAY ==
--- NOTE | ~2021-05-07 | XR_ITS ---
EXAMINATION: XR CHEST CLINICAL INFORMATION: Bronchitis COMPARISON: Previous chest x-rays most recent March 2021 TECHNIQUE: 2 views of the chest were obtained. FINDINGS: No significant abnormality is noted involving the heart, lungs, mediastinum, bony thorax or soft tissues. XR/XR chest 2V IMPRESSION: Unremarkable examination.
== END 2021-05-07 15:36 | disposition home or self-care (01) ==
LOC: HO.XRAY 15:35
PROVIDERS: PCP Internal Medicine; Visit Provider Internal Medicine
DX: J40 Bronchitis, not specified as acute or chronic (principal)
CPT/HCPCS: 71046

== ENCOUNTER → 2021-05-16 15:29 | Outpatient (BNVA) | payer MEDICAID, SELFPAY | PROVIDERS: PCP Internal Medicine; Visit Provider Hospitalist | DX: J45.50 Severe persistent asthma, uncomplicated (principal); D72.10 Eosinophilia, unspecified; R06.02 Shortness of breath | CPT/HCPCS: 99212 ==

== ENCOUNTER → 2021-05-21 08:13 | Outpatient (BNVA) | payer MEDICAID, SELFPAY | PROVIDERS: PCP Internal Medicine; Visit Provider Surgery ==

== ENCOUNTER 2021-05-23 14:50 | Outpatient (REF) | payer MEDICAID, SELFPAY ==
--- NOTE | ~2021-05-23 | US_ITS ---
EXAMINATION: US COMPLETE ABDOMEN WITH LIVER ELASTOGRAPHY CLINICAL INFORMATION: Obesity COMPARISON: None. TECHNIQUE: Real-time imaging of the abdominal viscera. Noninvasive ultrasound liver fibrosis assessment is performed using Giuliana ElastPQ point quantification shear wave elastography (pSWE) with a C5-2 MHz transducer. Multiple elastography samples are obtained. FINDINGS: PANCREAS: The visualized pancreatic head and body are normal in appearance. The remainder of the pancreas is obscured from visualization by the overlying bowel gas. ABDOMINAL AORTA: The proximal, middle, and distal aortic segments are normal in caliber. INFERIOR VENA CAVA: Visualized portions are normal. LIVER: Liver echotexture is slightly increased. The liver demonstrates normal size, and contour. No focal lesion or intrahepatic biliary duct dilatation. The right lobe measures 14 cm in length. The left lobe measures 9 cm in length. Portal flow is normal/hepatopedal Shear wave liver elastography median stiffness is 1.9 m/s (reference: normal median stiffness is 1.3 m/s or less). IQR/median stiffness to assess sampling precision is 0.13 (reference: good quality data set is IQR/median stiffness of 0.15 or less). GALLBLADDER: There are gallstones in the gallbladder. COMMON BILE DUCT: Normal in caliber measuring 0.4 cm in diameter. RIGHT KIDNEY: Normal. No hydronephrosis. No renal calculi or focal parenchymal lesions. The kidney measures 13.8 cm in maximum dimension. LEFT KIDNEY: Absent SPLEEN: Normal. The spleen measures 10.5 cm in maximum dimension. FREE FLUID: None. US/US abdomen comp w elastography IMPRESSION: 1. Impression: Slightly echogenic liver. Gallstones. Absent left kidney. Limited visualization of the tail the pancreas. 2. Liver elastography: Adequate liver sampling. Suggestive of compensated advanced chronic liver disease but need further test for confirmation. REFERENCE: Society of Radiologists in Ultrasound Liver Stiffness Thresholds (2020): LIVER STIFFNESS THRESHOLDS: *Liver Stiffness equal or less than 1.3 m/s: High probability of being normal. *Liver Stiffness less than 1.7 m/s: In the absence of other known clinical signs, rules out compensated advanced chronic liver disease. *Liver Stiffness 1.7-2.1 m/s: Suggestive of compensated advanced chronic liver disease but need further test for confirmation. *Liver Stiffness over 2.1 m/s: Rules in compensated advanced chronic liver disease. *Liver Stiffness over 2.4 m/s: Suggestive of clinically significant portal hypertension. QUALITY OF DATA SET: *IQR/Median value equal or less than 0.15 implies a quality data set. *IQR/Median value over 0.15 implies a poor quality data set. SIGNIFICANT CHANGE FROM PRIOR EXAM: Significant change if liver stiffness measurement is 10% or greater from prior exam. OTHER CONSIDERATIONS: The stage of liver fibrosis may be overestimated in the setting of acute hepatitis, liver inflammation, elevated liver function tests, hepatic vascular congestion, obstructive cholestasis, non-fasting state, and infiltrative diseases such as amyloidosis and lymphoma. In some patients with NAFLD, the liver stiffness thresholds for compensated advanced chronic liver disease may be lower. In causes other than viral hepatitis and NAFLD, liver stiffness thresholds are not well established.
== END 2021-05-23 14:51 | disposition home or self-care (01) ==
LOC: HO.US 14:50
PROVIDERS: PCP Internal Medicine; Visit Provider Surgery
DX: E66.01 Morbid (severe) obesity due to excess calories (principal); K21.9 Gastro-esophageal reflux disease without esophagitis
CPT/HCPCS: 76705; 76981

== ENCOUNTER → 2021-06-02 14:47 | Outpatient (BNVA) | payer MEDICAID, SELFPAY | PROVIDERS: PCP Internal Medicine; Visit Provider Hospitalist | DX: J45.50 Severe persistent asthma, uncomplicated (principal); D72.10 Eosinophilia, unspecified; R06.02 Shortness of breath; R06.00 Dyspnea, unspecified; R00.0 Tachycardia, unspecified | CPT/HCPCS: 99212 ==

== ENCOUNTER 2021-06-03 09:06 | Outpatient (REF) | payer MEDICAID, SELFPAY ==
[2021-06-03 09:17] LABS: MANUAL DIFF FLAG NO
[2021-06-03 09:41] LABS: Basophils Percent Auto 0.4 % (0-2); Eosinophils Absolute Auto 0.3 X10*3/uL (0.0-0.4); Eosinophils Percent Auto 3.7 % (0-4); Hemoglobin 13.4 g/dl (12.0-16.0); Imm Gran Abs Auto 0.03 X10*3/uL (0.00-0.03); Imm Gran Pct Auto 0.4 % (0.0-0.4); Lymphocytes Absolute Auto 2.2 X10*3/uL (1.2-4.9); Lymphocytes Percent Auto 26.5 % (20-40); Mean Corpuscular HGB Conc 32.7 g/dl (31.0-35.0); Mean Corpuscular Hemoglobin 28.8 pg (27.0-33.0); Mean Corpuscular Volume 88.2 fL (80-98); Monocytes Absolute Auto 0.7 X10*3/uL (0.1-1.2); Monocytes Percent Auto 7.9 % (2-11); Neutrophils Absolute Auto 5.1 X10*3/uL (2.0-8.3); Neutrophils Percent Auto 61.1 % (45-73); Platelet Count 229 X10*3/uL (160-400); Red Blood Count 4.65 X10*6/uL (4.20-5.50); Red Cell Distribution Width 13.2 % (11.0-16.0); White Blood Count 8.4 X10*3/uL (4.8-10.8)
[2021-06-03 09:55] LABS: Anion Gap 12 (12-20); Blood Urea Nitrogen 13 mg/dL (9-16); Calcium 9.4 mg/dL (8.4-10.2); Carbon Dioxide 27 mmol/L (22-29); Chloride 105 mmol/L (96-108); Estimated Glomerular Filt Rate > 60; Glucose Random 95 mg/dL (60-115); Potassium 4.3 mmol/L (3.3-5.1); Sodium 140 mmol/L (135-145)
[2021-06-03 10:30] LABS: D Dimer < 200 NG/ML
[2021-06-03 10:36] LABS: TSH reflex Free T4 (Prenatal) 0.58 uIU/mL (0.32-4.0)
[2021-06-03 10:38] LABS: Erythrocyte Sedimentation Rate 7 MM/HR (0-20)
== END 2021-06-03 09:07 | disposition home or self-care (01) ==
LOC: HO.LAB 09:06
PROVIDERS: PCP Internal Medicine; Visit Provider Hospitalist
DX: R00.0 Tachycardia, unspecified (principal); R06.00 Dyspnea, unspecified
CPT/HCPCS: 36415; 80048; 85025; 85379; 85652

== ENCOUNTER 2021-06-05 15:28 | Outpatient (REF) | payer MEDICAID, SELFPAY ==
--- NOTE | ~2021-06-05 | XR_ITS ---
EXAMINATION: XR LUMBOSACRAL SPINE WITH OBLIQUES CLINICAL INFORMATION: Low back pain and sciatica COMPARISON: Previous x-rays most recent June 2020 TECHNIQUE: AP, both oblique, and lateral views of the lumbar spine. Lateral view of the lumbosacral junction. FINDINGS: There is mild curvature of the lumbar spine to the right and exaggerated lordosis. Bone alignment is otherwise normal. No fracture or dislocation is seen. Disc spaces are normal. There is mild lower lumbar spine facet arthritis. No pars defect is seen. XR/XR lumbar spine 4V min IMPRESSION: Mild lower lumbar spine facet arthritis.
== END 2021-06-05 15:29 | disposition home or self-care (01) ==
LOC: HO.XRAY 15:28
PROVIDERS: PCP Internal Medicine; Visit Provider Internal Medicine
DX: M54.41 Lumbago with sciatica, right side (principal); M54.42 Lumbago with sciatica, left side
CPT/HCPCS: 72110

== ENCOUNTER 2021-06-10 09:49 | Outpatient (REF) | payer MEDICAID, SELFPAY | END 2021-06-10 09:50 | disposition home or self-care (01) | LOC: HO.MDS 09:49 | PROVIDERS: PCP Internal Medicine; Visit Provider Hospitalist | DX: J82.83 Eosinophilic asthma (principal) | CPT/HCPCS: 96372; J0517 ==

== ENCOUNTER → 2021-06-20 07:58 | Outpatient (BNVA) | payer MEDICAID, SELFPAY | PROVIDERS: PCP Internal Medicine; Visit Provider Surgery ==

== ENCOUNTER 2021-06-26 09:32 | Outpatient (REF) | payer MEDICAID, SELFPAY ==
--- NOTE | ~2021-06-26 | FL_ITS ---
EXAMINATION: XR GI SERIES CLINICAL INFORMATION: Morbid obesity. COMPARISON: None TECHNIQUE: Air-contrast upper GI examination. FINDINGS: There is normal apposition of the vocal cords while saying E. There is normal elevation of the soft palate while saying candy. No Zenker's diverticulum. There is normal esophageal motility. There is a small hiatal hernia seen. There was noted to be spontaneous gastroesophageal reflux to the thoracic inlet. No mucosal abnormality appreciated. The stomach demonstrates normal distensibility without abnormal mass or ulceration. There was no delay in gastric emptying. The duodenal bulb and sweep appear unremarkable. FLUOROSCOPY TIME: 1.4 minutes DOSE AREA PRODUCT: 10.075 Gy-cm2 FL/FL upper GI series IMPRESSION: Small hiatal hernia. Spontaneous gastroesophageal reflux to the level of the thoracic inlet.
== END 2021-06-26 09:33 | disposition home or self-care (01) ==
LOC: HO.XRAY 09:32
PROVIDERS: PCP Internal Medicine; Visit Provider Surgery
DX: E66.01 Morbid (severe) obesity due to excess calories (principal); K21.9 Gastro-esophageal reflux disease without esophagitis
CPT/HCPCS: 74240

== ENCOUNTER 2021-06-27 07:14 | Outpatient (REF) | payer MEDICAID, SELFPAY ==
[2021-06-27 13:26] LABS: MANUAL DIFF FLAG NO
[2021-06-27 14:06] LABS: Basophils Percent Auto 0.1 % (0-2); Hematocrit 37.8 % (37.0-47.0); Hemoglobin 12.5 g/dl (12.0-16.0); Imm Gran Abs Auto 0.04 X10*3/uL (0.00-0.03); Imm Gran Pct Auto 0.6 % (0.0-0.4); Lymphocytes Absolute Auto 2.4 X10*3/uL (1.2-4.9); Lymphocytes Percent Auto 34.3 % (20-40); Mean Corpuscular HGB Conc 33.1 g/dl (31.0-35.0); Mean Corpuscular Hemoglobin 28.9 pg (27.0-33.0); Mean Corpuscular Volume 87.5 fL (80.0-98.0); Mean Platelet Volume 10.8 fL (9.4-12.3); Monocytes Absolute Auto 0.6 X10*3/uL (0.1-1.2); Monocytes Percent Auto 8.3 % (2-11); Neutrophils Absolute Auto 3.9 x10*3/uL (2.0-8.3); Neutrophils Percent Auto 56.7 % (45-73); Platelet Count 235 X10*3/uL (160-400); Red Blood Count 4.32 X10*6/uL (4.20-5.50); White Blood Count 6.9 X10*3/uL (4.8-10.8)
[2021-06-27 14:20] LABS: INTERNATIONAL NORM RATIO 0.9 (0.9-1.1); Prothrombin Time 10.5 SEC (9.9-13.0)
[2021-06-27 14:23] LABS: Partial Thromboplastin Time 32.6 SEC (24.1-38.0)
[2021-06-27 14:24] LABS: Estimated Average Glucose 103 mg/dL; Hemoglobin A1c % 5.2 %
[2021-06-27 14:54] LABS: Alanine Aminotransferase 20 U/L (0-31); Albumin Level 4.2 g/dL (3.5-5.0); Alkaline Phosphatase 67 U/L (39-117); Anion Gap 13 (12-20); Aspartate Amino Transferase 16 U/L (5-31); Bilirubin Total 0.8 mg/dL (0.0-1.0); Blood Urea Nitrogen 10 mg/dL (9-16); C Reactive Protein 0.81 mg/dL (< or = 0.50); Carbon Dioxide 24 mmol/L (22-29); Chloride 104 mmol/L (96-108); Cholesterol 185 mg/dL; Estimated Glomerular Filt Rate > 60; Glucose Random 82 mg/dL (60-115); HDL Cholesterol 55 mg/dL; LDL Cholesterol Calculated 112 mg/dl; Sodium 137 mmol/L (135-145); Total Protein 6.5 g/dL (6.5-8.0); Triglycerides 92 mg/dL
[2021-06-27 15:15] LABS: Vitamin D 25-OH Total 22.5 ng/mL (>30)
[2021-06-27 15:30] LABS: Insulin 9 uU/mL (2-29)
== END 2021-06-27 07:15 | disposition home or self-care (01) ==
LOC: HO.LAB 07:14
PROVIDERS: Physician Assistant; PCP Internal Medicine; Visit Provider Surgery
DX: E66.9 Obesity, unspecified (principal); Z68.36 Body mass index [BMI] 36.0-36.9, adult; K21.9 Gastro-esophageal reflux disease without esophagitis; J45.50 Severe persistent asthma, uncomplicated; E55.9 Vitamin D deficiency, unspecified; Z71.3 Dietary counseling and surveillance
CPT/HCPCS: 36415; 80053; 80061; 82306; 83036; 83525; 84443; 85025; 85610; 85730; 86140; 86850; 86900; 86901

== ENCOUNTER 2021-07-01 07:46 | Inpatient (IN) | payer MEDICAID, SELFPAY ==
[2021-06-27 14:01] VITALS: BP 134/82; PULSE 64; RESP 16; O2SAT 98; BMI 37.9
--- NOTE | 2021-06-28 17:27 | MHC.SHP ---
Pre-Procedural Eval Section A Date of Service: 06/28/21 The patient is an INPATIENT: Yes The History & Physical has been completed within 30 days and I have reviewed it.: Yes Section B Chief Complaint: obesity Relevant Family History (Specify if Yes): No Relevant Social History: None Present Medications: None Medical History: No relevant PMH History of Previous Operations: No relevant previous surgery Allergies: Allergies Allergy/AdvReac Type Severity Reaction Status Date / Time aspirin [ASPIRIN] Allergy Severe DUE TO Verified 06/27/21 14:00 KIDNEY FUNCTION (PT HAS 1 KIDNEY) NSAIDS (Non-Steroidal Allergy Severe KIDNEY Verified 06/27/21 14:00 Anti-Inflamma FUNCTION [NSAIDS (NON-STEROIDAL ANTI-INFLAMMA] oranges Allergy Severe Itching on Uncoded 06/27/21 14:00 Skin strawberries Allergy Severe Itching on Uncoded 06/27/21 14:00 Mouth Review of Systems Sugical H&P ROS: Negative: Constitution, Cardiovascular, Respiratory, Neurological, Psychiatric, Hem-Onc, Allergic/Immunologic, Gastrointestinal, Genitourinary, Musculoskeletal, Integumentary, Endocrine and Eyes/Ears/Nose/Throat Exam Surgical H&P Exam: Normal: HEENT, Normal: Heart, Normal: Lungs, Normal: Extremities, Normal: Abdomen, Normal: Skin and Normal: Neurological Plan Diagnosis/Plan: Unchanged I have reviewed the history and physical and performed a pertinent physical examination on my patient. No changes have occurred unless specified.
--- NOTE | 2021-06-30 10:59 | P.CONAN_ITS ---
Documented by User: Michelle Donald NP 06/30/21 11:08 HPI - Anesthesia Eval Consult details Narrative: 35yo F for Gastrectomy Sleeve,EGD, Possible Diaphragmatic Hernia, Possible Ventral Hernia, Possible open Pulmo optimized. Rec's pre and post bronchodilator PMFSH Active Problems Active Problems: All Active Problems (Updated 06/20/21 @ 09:03 by Aquiles Pettit MD) BMI 36.0-36.9,adult (Acute) Obesity (Acute) Dyspnea (Acute) Tachycardia (Acute) Anxiety (Acute) Eosinophilia (Acute) Adjustment disorder, unspecified (Acute) Vitamin D deficiency (Acute) Snoring (Acute) Hypersomnolence (Acute) Morbid obesity (Acute) Body mass index (BMI) of 40.1 to 44.9 in adult (Acute) Shortness of breath (Acute) GERD (gastroesophageal reflux disease) (Acute) Osteoarthritis (Acute) Asthma (Acute) Past Medical History Medical History (Updated 06/20/21 @ 09:03 by Aquiles Pettit MD) Anxiety Asthma Body mass index (BMI) of 40.1 to 44.9 in adult Bronchitis Congenital absence of kidney Dyspnea Eosinophilia GERD (gastroesophageal reflux disease) Hypersomnolence Morbid obesity Osteoarthritis Shortness of breath Snoring Tachycardia Vitamin D deficiency Family History Family History Mother Diabetes Family history of thyroid problem Father Emphysema lung High cholesterol Hypertension Sister High cholesterol Hypertension Brother No problems noted. Daughter No problems noted. Daughter No problems noted. 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 If so, by whom?: No Spiritual Healthcare Practices: none Judaism Healthcare Practices: none Cultural Healthcare Practices: none Are you DNR?: No Advance Directives: No Advance Directives Information Provided: Yes Advance Directives on File: No Recently lost weight without trying: No Patient : No FDLMP: 06/20/2021 : No Poor oral hygiene: No Meds Allergies Allergy/AdvReac Type Severity Reaction Status Date / Time aspirin [ASPIRIN] Allergy Severe DUE TO Verified 06/27/21 14:00 KIDNEY FUNCTION (PT HAS 1 KIDNEY) NSAIDS (Non-Steroidal Allergy Severe KIDNEY Verified 06/27/21 14:00 Anti-Inflamma FUNCTION [NSAIDS (NON-STEROIDAL ANTI-INFLAMMA] Penicillins Allergy Mild Rash Verified 07/01/21 08:10 oranges Allergy Severe Itching on Uncoded 06/27/21 14:00 Skin strawberries Allergy Severe Itching on Uncoded 06/27/21 14:00 Mouth Home Medications Medication Instructions Recorded Confirmed Last Taken Type albuterol sulfate 90 mcg/actuation 2 puff INHALATION Q6H PRN 03/03/21 06/27/21 Unknown History aerosol inhaler Exam Exam Date and Time: June 30, 2021 1059 Height,Weight and Vital Signs: Height 5 ft 6 in Weight 106.5 kg Last Vital Signs Pulse 64 06/27/21 14:01 Resp 16 06/27/21 14:01 BP 134/82 06/27/21 14:01 Pulse Ox 98 06/27/21 14:01 Pertinent Lab Results Pertinent Lab Results: Laboratory Tests 06/27/21 13:25 Blood Type O Positive Antibody Screen NEGATIVE Narrative Narrative: Laboratory Tests 06/27/21 06/27/21 13:25 13:25 WBC 6.9 Hgb 12.5 Hct 37.8 Plt Count 235 Sodium 137 Potassium 4.0 Chloride 104 Carbon Dioxide 24 BUN 10 Creatinine 0.74 EKG 04/2021 Vent. Rate : 061 BPM ? ? Atrial Rate : 061 BPM ?? P-R Int : 122 ms? QRS Dur : 084 ms ? ? QT Int : 398 ms ? ? ? P-R-T Axes : 044 048 038 degrees ?? QTc Int : 400 ms ? Normal sinus rhythm with sinus arrhythmia Normal ECG When compared with ECG of 10-MAR-2021 15:03, No significant change was found PFT 04/2021 IMPRESSION:? No obstructive or restrictive ventilatory defect.? Positive bronchodilator response.? Decreased expiratory reserve volume suggests extrathoracic restriction likely secondary to abdominal obesity. Assessment and Plan Assessment Anesthesia Assessment: Chart Reviewed Documented by User: Manjula Clifton MD 07/01/21 09:55 [facility] Active Problems Active Problems: All Active Problems (Updated 06/20/21 @ 09:03 by Aquiles Pettit MD) BMI 36.0-36.9,adult (Acute) Obesity (Acute) Dyspnea (Acute) Tachycardia (Acute) Anxiety (Acute) Eosinophilia (Acute) Adjustment disorder, unspecified (Acute) Vitamin D deficiency (Acute) Snoring (Acute). States no sleep study Hypersomnolence (Acute) Morbid obesity (Acute) Body mass index (BMI) of 40.1 to 44.9 in adult (Acute) Shortness of breath (Acute) GERD (gastroesophageal reflux disease) (Acute) Osteoarthritis (Acute) Asthma (Acute) Past Medical History Medical History (Updated 06/20/21 @ 09:03 by Aquiles Pettit MD) Anxiety Asthma Body mass index (BMI) of 40.1 to 44.9 in adult Bronchitis Congenital absence of kidney Dyspnea Eosinophilia GERD (gastroesophageal reflux disease) Hypersomnolence Morbid obesity Osteoarthritis Shortness of breath Snoring Tachycardia Vitamin D deficiency Family History Family History Mother Diabetes Family history of thyroid problem Father Emphysema lung High cholesterol Hypertension Sister High cholesterol Hypertension Brother No problems noted. Daughter No problems noted. Daughter No problems noted. 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 If so, by whom?: No Spiritual Healthcare Practices: none Judaism Healthcare Practices: none Cultural Healthcare Practices: none Are you DNR?: No Advance Directives: No Advance Directives Information Provided: Yes Advance Directives on File: No Recently lost weight without trying: No Patient : No FDLMP: 06/20/2021 : No Poor oral hygiene: No Meds Allergies Allergy/AdvReac Type Severity Reaction Status Date / Time aspirin [ASPIRIN] Allergy Severe DUE TO Verified 06/27/21 14:00 KIDNEY FUNCTION (PT HAS 1 KIDNEY) NSAIDS (Non-Steroidal Allergy Severe KIDNEY Verified 06/27/21 14:00 Anti-Inflamma FUNCTION [NSAIDS (NON-STEROIDAL ANTI-INFLAMMA] Penicillins Allergy Mild Rash Verified 07/01/21 08:10 oranges Allergy Severe Itching on Uncoded 06/27/21 14:00 Skin strawberries Allergy Severe Itching on Uncoded 06/27/21 14:00 Mouth Home Medications Medication Instructions Recorded Confirmed Last Taken Type albuterol sulfate 90 mcg/actuation 2 puff INHALATION Q6H PRN 03/03/21 06/27/21 Unknown History aerosol inhaler Exam Height,Weight and Vital Signs: Height 5 ft 6 in Weight 106.5 kg Last Vital Signs Pulse 64 06/27/21 14:01 Resp 16 06/27/21 14:01 BP 134/82 06/27/21 14:01 Pulse Ox 98 06/27/21 14:01 Vital Signs Temp Pulse Resp BP Pulse Ox 07/01/21 08:17 98 F 77 18 118/68 99 Airway Mallampati Class: II TM Dist: >3cm Neck ROM: Full Loose/Missing/Broken Teeth: No Heart: RRR Lungs: CTAB Assessment and Plan Assessment Anesthesia Assessment: Anesthesia Plan Discussed Final Anesthetic Review Family History of Problems with Anesthesia: No History of Problems with Anesthesia: No NPO: Yes ASA Class: III Final Preanesthetic Review: No Changes in Pt Med Stat, Meds/Allgs Chart Reviewed, Consent Obtained/Reviewed and Anes Risks/Benef Reviewed Patient Risk: Intermediate Procedure Risk: Intermediate Assessment/Block/Sedation in SS: Assess/Block/Sedation-SS Anesthetic Plan Anesthetic Plan: GA Disposition: Standard PACU and Inp. Admit - Standard Bed
[2021-07-01] VITALS (10 sets, daily range): BP systolic 118–146; BP diastolic 66–94; PULSE 77–113; RESP 12–18; TEMP 36.1–37; O2SAT 93–99
[2021-07-01] MEDS: Lactated Ringers 1,000 ML 999 ML IV (08:29)
[2021-07-01 08:33] LABS: COVID-19 Test Negative (Negative); IDNOW Serial# 9DD0AD1C
[2021-07-01] MEDS: Lactated Ringers 1,000 ML 100 ML IVCONT ×2 (08:45→14:59)
--- NOTE | 2021-07-01 10:26 | PM.PNGS ---
Subjective Subjective Date of Service: 07/02/21 Interval history: Patient has mild incisional pain, but was able to ambulate and use the incentive spirometer. She is tolerating phase 1 bariatric diet Physical Exam Vital Signs: Vital Signs: Last Vital Signs Temp 98 F 07/01/21 08:17 Pulse 77 07/01/21 08:17 Resp 18 07/01/21 08:17 BP 118/68 07/01/21 08:17 Pulse Ox 99 07/01/21 08:17 Body Mass Index 37.9 GI: Inspection: Yes incision (clean, dry and intact) Extrem: Right lower extremity: normal to inspection (no calf tenderness) Left lower extremity: normal to inspection (no calf tenderness) Objective Data Active Medications Fentanyl (Fentanyl Citrate/Pf 100 Mcg/2 Ml Vial) 25 mcg IVPUSH Q5M PRN; Protocol PRN Reason: Pain, Moderate (Pain Scale 4-6 Hydromorphone HCl (Hydromorphone Hcl 0.5 Mg/0.5 Ml Syringe) 0.25 mg IVPUSH Q5M PRN; Protocol PRN Reason: Pain, Severe (Pain Scale 7-10) Lactated Ringer's (Lr) 1,000 mls @ 100 mls/hr IVCONT .Q10H DASH Last Admin: 07/01/21 08:45 Dose: 100 mls/hr Documented by: HODA Promethazine HCl 6.25 mg/ (Sodium Chloride) 50.25 mls @ 201 mls/hr IV ONCE PRN PRN Reason: Nausea and Vomiting Ondansetron HCl (Ondansetron Hcl 4 Mg/2 Ml Vial) 4 mg IVPUSH ONCE PRN PRN Reason: Nausea and Vomiting Labs CBC & Chem 7: 07/02/21 05:52 07/02/21 05:52 Labs: Laboratory Results - last 24 hr 07/01/21 08:10 COVID-19 (PREETHI) Negative COVID-19 Clin Com See Note Procedures Date of Service Date of Service: 07/02/21 Progress Note: A&P Assessment and plan (1) Obesity: Status: Acute Assessment and Plan: s/p laparoscopic sleeve gastrectomy, lysis of adhesions repair of diaphragmatic hernia, and gastropexy Doing well Check am labs. If OK, will discharge home? (2) BMI 37.0-37.9, adult: Status: Acute (3) GERD (gastroesophageal reflux disease): Status: Acute (4) Diaphragmatic hernia: Status: Acute (5) Osteoarthritis: Status: Acute (6) Asthma: Status: Acute (7) Steatosis, liver: Status: Acute (8) Cholelithiasis: Status: Acute (9) Liver fibrosis: Status: Acute (10) Anxiety: Status: Acute (11) Status post repair of paraesophageal diaphragmatic hernia: Status: Acute (12) S/P laparoscopic sleeve gastrectomy: Status: Acute Fall Risk Details Current Medications: Current Medications Fentanyl (Fentanyl Citrate/Pf 100 Mcg/2 Ml Vial) 25 mcg IVPUSH Q5M PRN; Protocol PRN Reason: Pain, Moderate (Pain Scale 4-6 Hydromorphone HCl (Hydromorphone Hcl 0.5 Mg/0.5 Ml Syringe) 0.25 mg IVPUSH Q5M PRN; Protocol PRN Reason: Pain, Severe (Pain Scale 7-10) Lactated Ringer's (Lr) 1,000 mls @ 100 mls/hr IVCONT .Q10H DASH Last Admin: 07/01/21 08:45 Dose: 100 mls/hr Documented by: Promethazine HCl 6.25 mg/ (Sodium Chloride) 50.25 mls @ 201 mls/hr IV ONCE PRN PRN Reason: Nausea and Vomiting Ondansetron HCl (Ondansetron Hcl 4 Mg/2 Ml Vial) 4 mg IVPUSH ONCE PRN PRN Reason: Nausea and Vomiting Time Spent With Patient Time: Total time spent is greater than 50% in coordination of care (as documented) at patient's floor/unit and/or counseling patient: Time with patient: less than 15 minutes Quality Stroke Does the patient have a stroke diagnosis?: No VTE Prior VTE?: No VTE Risk Level:: Surgical - moderate VTE Device Contraindication: N/A - Device Ordered VTE Drug Contraindication: Treatment Not Indicated
--- NOTE | 2021-07-01 10:29 | PM.OP ---
Brief Operative Note Date of Service: 07/01/21 Pre-op diagnosis: Severe obesity and comorbidities (see below) Post-op diagnosis: same Procedure: INITIAL PATIENT BMI ON PRESENTATION AT OUR OFFICE: 40.1 kg/m2 LAST BMI BEFORE SURGERY: 37.7 kg/m2 COMORBIDITIES: GERD, diaphragmatic hernia, asthma, back pain, liver steatosis, liver fibrosis, cholelithiasis The patient participated in an intensive weekly lifestyle ?intervention and exercise program during which the patient ?has lost between the initial office visit and the last preoperative visit 15.8 lbs, or 6.53% of initial actual body weight. The patient met the BMI-criteria for bariatric surgery based on the BMI on initial presentation. The patient should not be penalized for achieving such weight loss because ?it is not sustainable long-term without surgical intervention and it was achieved in preparation for bariatric surgery ?under my direction and based on my published research ([email or web address]) ?that a 10% preoperative weight loss improves long-term weight loss after surgery and reduces perioperative complications.? Insurance carriers such as [facility] have endorsed my recommendations ?and have included in their policies criteria to include a 10% preoperative weight loss requirement. PROCEDURE: Esophago-gastroscopy, laparoscopic repair of incarcerated diaphragmatic hernia, laparoscopic lysis of adhesions, laparoscopic sleeve gastrectomy and laparoscopic gastropexy INDICATIONS: This is a 35 year-old female who was electively scheduled for laparoscopic, possibly open sleeve gastrectomy. The risks and complications of the procedure were discussed with the patient in advance, particularly the possibility of ; pulmonary embolism; staple line leak; bleeding; GERD; cardiac, pulmonary, or renal complications; as well as long-term problems such as insufficient weight loss, vitamin deficiency, strictures, or ulcers. The patient understood all the risks, and was in agreement to proceed with surgery. DESCRIPTION OF PROCEDURE: After informed consent was obtained from the patient, the patient was given preoperative antibiotics, and was transferred to the operating room. After successful induction of general anesthesia, pneumatic compressive devices were placed on both lower extremities. An upper endoscopy was performed next. The oropharynx and esophagus appeared to be within normal limits. There was a diaphragmatic hernia present of moderate size consistent with the findings of the preoperative upper GI. The stomach was entered. Then after all fluid and air were suctioned and the stomach was fully decompressed, the scope was withdrawn and secured in the mid esophagus. The patient was then prepped and draped in the usual sterile manner, and abdominal access was established at the right upper quadrant with the Yen technique. A 12 mm blunt port was inserted, and the abdomen was insufflated with CO2 to a pressure of 15 mmHg. Under direct visualization, additional ports were placed, specifically two 5 mm Versi-step ports to the left upper quadrant, and a 5 mm Versi-Step port to the right upper quadrant. 1% lidocaine plain was used to infiltrate all port sites as well as all fascia defects. Using the EndoClose suture passer device, we placed a #1 Polysorb tie across the falciform ligament in order to retract it up against the abdominal wall and prevent injury of the ligament with our instruments during the procedure. Following that, the patient was placed in a steep reverse Trendelenburg position. An additional 5 mm port was placed to the right flank for the Mediflex retractor that was used to retract the left lobe of the liver. The gastro-esophageal fat pad was opened with the ultrasonic device (Thunderbeat, Olympus) and the anterior esophagus and hiatus were exposed. The angle of His was opened with the ultrasonic device the fundus of the stomach from any diaphragmatic and splenic attachments. I then opened the gastrocolic ligament between the transverse colon and the greater curvature of the stomach with the ultrasonic device to enter the lesser sac and facilitate the ligation of the short gastric vessels. I started at a mid-point along the greater curvature and using the Thunderbeat, all short gastric vessels were divided all the way to the angle of His until the left homa was completely dissected at its entirety. I then divided the gastro-colic ligament distally to a distance of about 3-4 cm proximal to the esophagus. There was an obvious significant-sized hiatal hernia. I continued dissecting along the hiatus toward the left homa and the angle of His. I fully mobilized the fat pad that was incarcerated in the hernia. I then continued by dissecting even further into the posterior retro-esophageal space all the way to the angle of His. I continued to mobilize the esophagus into the mediastinum circumferentially. Both vagal nerves were seen and preserved. At that point, I was able to have at least 3 to 5 cm of esophagus into the abdomen.? After I completely mobilized the esophagus from both the left and right homa and I had a good mobilization of the esophagus circumferentially, I closed the hernia defect with four interrupted #0 Surgidac sutures using the Endo Stitch device, two of which were placed posterior and two anterior to the esophagus. ? The stomach was then divided transversely with one Endo KIRSTIE-45 purple, two KIRSTIE-45 orange and four KIRSTIE-60 articulating orange loads using the HeyAnita staplers and loads. Every effort was made that the gastric sleeve had a tubular shape and an even caliber throughout. Once the sleeve resection was completed, the staple line of the gastric sleeve was reinforced with Hemoclips. The resected stomach was retrieved without difficulty from the Yen port. A gastropexy was then performed in order to prevent postoperative GERD and partial gastric volvulus. Several interrupted 2.0 Surgidac sutures were placed between the sleeve's staple line and the previously divided greater omentum and gastro-colic ligament using the Endo-Stitch device. ?An upper endoscopy was performed. There was no narrowing at the GE junction. The scope was easily advanced all the way to the pylorus which was clearly visualized. There was no narrowing anywhere and the sleeve's caliber was even throughout. The sleeve's staple line was inspected and there was no evidence of ischemia, bleeding or dehiscence. At that point the gastroscope was withdrawn from the patient?s mouth while we were decompressing the bowel and the stomach from any remaining air. I looked into the lesser sac to see how the sleeve was situating and it was situating well. There was no bleeding from the staple line, spleen, or short gastric vessels. The Mediflex retractor was removed, and the undersurface of the liver was inspected and there was no bleeding. The patient was placed in supine position. I closed the fascial defect of the 12 mm port site with a figure of eight #1 Polysorb suture. Then 100 cc 0.25 % Marcaine plain with 10 mg of Dexamethasone were used to infiltrate the fascial closure as well as all skin incisions. At this point, the abdomen was deflated, all ports were removed under direct vision, and no bleeding was noted from any of the port sites. The skin incisions were irrigated with saline and were closed with 4-0 absorbable monofilament sutures. Steri-Strips and OpSites were used to cover all incisions. The patient was extubated and was transferred in stable condition to the recovery room for further care. I was present and performed all rowe parts of the procedure. Ms. Douglas was the assistant boys track coach. There were no residents to assist with this case. Ashu Pettit MD, PhD, FACS Surgeon: Aquiles Pettit MD Anesthesia: GETA, local and other (TAP block) Was an Almond Blancher Operator used for this Procedure?: No Almond Blancher Operator: Scott Mitchell Estimated blood loss (mL): 10 Urine output (mL): 0 (No Oakes to record) Pathology: other (Stomach) Condition: stable Disposition: PACU
--- NOTE | 2021-07-01 13:40 | PM.DS ---
DS: Providers Provider Date of Service: 07/02/21 Date of admission: 07/01/21 07:46 Primary care physician: Cristina Campos MD DS: Diagnosis Discharge Diagnosis (1) Obesity: Status: Acute (2) BMI 37.0-37.9, adult: Status: Acute (3) GERD (gastroesophageal reflux disease): Status: Acute (4) Diaphragmatic hernia: Status: Acute (5) Osteoarthritis: Status: Acute (6) Asthma: Status: Acute (7) Steatosis, liver: Status: Acute (8) Cholelithiasis: Status: Acute (9) Liver fibrosis: Status: Acute (10) Anxiety: Status: Acute DS: Summary Hospital Course Hospital Course: ADMITTING DIAGNOSIS: morbid obesity, asthma, GERD, diaphragmatic hernia DISCHARGE DIAGNOSIS: same, s/p laparoscopic sleeve gastrectomy and repair diaphragmatic hernia PAST SURGICAL HISTORY: bilateral tubal ligations PROCEDURE: upper endoscopy, laparoscopic sleeve gastrectomy and repair of diaphragmatic hernia hernia DISCHARGE SUMMARY: History of Present Illness: The patient is a 35 year-old woman with a BMI of 40.1 kg/m2 and associated co-morbidities as described above. The patient had extensive work-up,lost 11.6 lbs preoperatively and was electively scheduled for laparoscopic, possible open sleeve gastrectomy and gastropexy. Risks and complications of the surgery were discussed with the patient in advance, particularly the possibility of , pulmonary embolism, anastomotic leak, bleeding, bowel injury, GERD, cardiac, renal or pulmonary complications. The patient understood all the risks and was in agreement with the surgical plan. Hospital Course: The patient underwent an uneventful laparoscopic sleeve gastrectomy with gastropexy and repair of diaphragmatic hernia on the day of admission. Postoperatively, the patient was transferred to the surgical floor. The patient received IV Acetaminophen and IV dilaudid for pain control. Patient was started on bariatric phase 1 diet POD #0. On postoperative day one, the patient was feeling well without nausea, vomiting, fevers, or tachycardia. The patient had some mild incisional pain and the abdomen was soft. On the morning of postoperative day one, the patient was continued on 1 ounce of water or ice every half hour. During the day, the patient did fairly well, having some incisional pain, but able to ambulate adequately and to tolerate liquids well. Since the patient is doing well, we decided that the patient was ready to be discharged. The patient was given instructions to follow-up with me next week and to call my office for any fever over 101, persistent abdominal pain, nausea, vomiting, GERD, symptoms of DVT such as calf tenderness, or leg swelling, or pulmonary embolism such as chest pain or shortness of breath. The patient was also instructed to drink 40-60 ounces of liquids per day using the 1-ounce cups. The patient had been given prescriptions for Tylenol for pain, Zofran prn for nausea, and pantoprazole and carafate previously. The patient was encouraged to ambulate and use the incentive spirometer. The patient was allowed to shower, but no baths, and encouraged to stay active at home. All of these instructions were given to the patient personally. All questions were answered and the patient understood all instructions, the instructions were also given to the patient in print. Time Spent with Patient Time attestation: Total time spent providing and/or coordinating discharge services: Discharge coordination time: Less than 30 minutes Quality: Stroke Does the patient have a stroke diagnosis?: No Physical Exam Vital Signs: Vital Signs: Last Vital Signs Temp 98 F 07/01/21 08:17 Pulse 77 07/01/21 08:17 Resp 18 07/01/21 08:17 BP 118/68 07/01/21 08:17 Pulse Ox 99 07/01/21 08:17 Body Mass Index 37.9 DS: Data Data Completed and Pending Pending studies at discharge: Pending at discharge 07/01/21 12:57 Surgical [PTH] Routine Labs on day of discharge: Laboratory Results - last 24 hr 07/01/21 08:10 COVID-19 (PREETHI) Negative COVID-19 Clin Com See Note Discharge Plan Discharge Anticipated Discharge Date/Time: 07/02/21 10:36 Patient Disposition: Home, Self-Care Discharge Diagnosis: s/p sleeve gastrectomy Referrals: Cristina Owen MD [Primary Care Provider] - 1 Week Discharge Medications: Continued Breo Ellipta 200-25 mcg/dose blister with device 1 inh inhalation DAILY 30 Days Qty: 60 RF: 11 Incruse Ellipta 62.5 mcg/actuation blister with device 1 inh inhalation DAILY 30 Days Qty: 30 RF: 11 Fasenra 30 mg/mL syringe 30 mg subcut Q8W 365 Days Qty: 9 RF: 0 albuterol sulfate 90 mcg/actuation HFA aerosol inhaler 2 puff inhalation Q6H PRN (Reason: Shortness Of Breath Or Wheezing) RF: 0 montelukast [Singulair] 10 mg tablet 10 mg PO BEDTIME 30 Days Qty: 30 RF: 11 Trelegy Ellipta 200-62.5-25 mcg blister with device 1 inh inhalation DAILY 30 Days Qty: 60 RF: 12 pantoprazole 40 mg tablet,delayed release (DR/EC) 40 mg PO DAILY Qty: 30 RF: 2 sucralfate 100 mg/mL suspension 10 ml PO BID Qty: 400 RF: 2 ondansetron HCl [Zofran] 4 mg tablet 4 mg PO Q12H Qty: 20 RF: 0 Discontinued cholecalciferol (vitamin D3) 1,250 mcg (50,000 unit) capsule 1,250 mcg PO QWEEK 28 Days Qty: 4 RF: 1 polyethylene glycol 3350 [Miralax] 17 gram powder in packet 17 g PO DAILY Qty: 14 RF: 0 Discharge Orders: Discharge Order (Routine); Ordered 07/02/21 Ordered By: Aquiles Pettit Diet: other Activity on Discharge: No heavy lifting Stand Alone Forms: Patient Portal Discharge page Care Plan Goals: weight loss Health Concerns: morbid obesity Plan of Treatment: No tub baths, sex or returning to work until discussed at first post op appointment. No exercise, alcohol, tobacco or illegal drug use. Continue to use incentive spirometer hourly while awake. Walk in home for 5- 10 minutes every 2 hours during the first week. Continue phase 1 diet today and start phase 2 diet tomorrow morning. Follow all instructions in the bariatric handbook and call with any questions. 1. Please call your doctor or come back to the emergency room should any new symptoms arise. 2. You will receive a courtesy call from [facility] 24-48 hours after discharge. 3. Activity: abstain from alcohol, practice limited stair climbing, no bending, no driving, no exercise, no illicit substances, no lifting, no sex, no tub bath, no work. 4. Diet: continue as discussed with Dr. Pettit. 5. Dressing Change/Wound Care: Do not change or remove surgical dressings unless they are wet or soiled. 6. Call your doctor if: - Your temperature exceeds 101.5 F - You experience excessive pain or swelling - You have an unexpected reaction to medication - You have excessive bleeding - You experience continued vomiting/nausea - Your incision begins to separate - Your incision shows signs of infection such as increased redness, swelling, excessive pain, heat, or drainage (light blood or clear fluid is normal) 7. General instructions: No lifting greater than 5 lbs for the next 4 weeks[address] within 24 hours of taking narcotic pain medications. If you do not move your bowels in the next 2 days, please take milk of magnesia over the counter. Please follow the post op diet and do not advance your diet until you are seen in the office in about 2 weeks. Please walk around your home every hour or two to prevent blood clots from forming in your legs. You do not need to wake from sleeping to walk. Please sleep in a bed or couch to prevent kinking at the hips and knees. Please take your incentive spirometer (your lung hazardous materials handler) home with you and use it for the next few days to prevent pneumonias. You may shower, no hot tubs, baths or swimming pools. Please call the office with any questions or concerns such as increasing abdominal pain, fever, chills, shortness of breath, chest pain, leg pain or swelling, or redness or drainage from your incisions. Do not hesitate to contact the office with any questions at . The patient's medical history has been reviewed and they are considered low risk for post op DVT and therefore DVT prophylaxis is not considered necessary. Travel after surgery was reviewed. The patient has not disclosed any travel plans during the first 30 days after surgery and they have been advised that within the first 30 days after surgery any bus, plane, train or car travel over 2 hours in duration is contraindicated due to the possibility of developing blood clots from immobility. Any travel, needs to include periods of ambulation of 10 minutes in duration every 2 hours. The patient was instructed to discuss any plans for travel during this period with their bariatric surgeon. Assessment: stable s/p sleeve gastrectomy Discharge Date/Time: 07/02/21 09:54
[2021-07-01 14:10] LABS: Hematocrit 40.9 % (37.0-47.0); Hemoglobin 13.3 g/dl (12.0-16.0)
[2021-07-01 14:30] LABS: Anion Gap 13 (12-20); Blood Urea Nitrogen 10 mg/dL (9-16); Carbon Dioxide 25 mmol/L (22-29); Chloride 102 mmol/L (96-108); Creatinine Clr Calc Pharmacy 116.5; Estimated Glomerular Filt Rate > 60; Glucose Random 100 mg/dL (60-115); Potassium 4.4 mmol/L (3.3-5.1); Sodium 136 mmol/L (135-145)
[2021-07-01] MEDS: Famotidine/PF 20 MG/2 ML VIAL IVPUSH ×2 (14:42→20:38)
[2021-07-01] MEDS: Montelukast Sodium 10 MG TABLET PO (20:38)
[2021-07-01] MEDS: 0.9 % Sodium Chloride Flush 3 ML SYRINGE IVFLUSH (20:38)
[2021-07-01] MEDS: ondansetron HCL 4 MG/2 ML VIAL IVPUSH (23:01)
[2021-07-02] MEDS: Lactated Ringers 1,000 ML 100 ML IVCONT (00:12)
[2021-07-02 03:52] VITALS: BP 123/69; PULSE 68; RESP 18; TEMP 36.1; O2SAT 94
[2021-07-02 06:05] LABS: MANUAL DIFF FLAG NO
[2021-07-02 06:10] LABS: Basophils Percent Auto 0.1 % (0-2); Eosinophils Percent Auto 0.1 % (0-4); Hematocrit 35.8 % (37.0-47.0); Hemoglobin 11.9 g/dl (12.0-16.0); Imm Gran Abs Auto 0.04 X10*3/uL (0.00-0.03); Imm Gran Pct Auto 0.4 % (0.0-0.4); Lymphocytes Absolute Auto 0.9 X10*3/uL (1.2-4.9); Lymphocytes Percent Auto 8.8 % (20-40); Mean Corpuscular HGB Conc 33.2 g/dl (31.0-35.0); Mean Corpuscular Hemoglobin 28.7 pg (27.0-33.0); Mean Corpuscular Volume 86.3 fL (80.0-98.0); Mean Platelet Volume 11.1 fL (9.4-12.3); Monocytes Absolute Auto 0.8 X10*3/uL (0.1-1.2); Monocytes Percent Auto 7.9 % (2-11); Neutrophils Absolute Auto 8.1 x10*3/uL (2.0-8.3); Neutrophils Percent Auto 82.7 % (45-73); Platelet Count 205 X10*3/uL (160-400); Red Blood Count 4.15 X10*6/uL (4.20-5.50); Red Cell Distribution Width 12.8 % (11.0-16.0); White Blood Count 9.8 X10*3/uL (4.8-10.8)
[2021-07-02 06:36] LABS: Anion Gap 14 (12-20); Blood Urea Nitrogen 11 mg/dL (9-16); Calcium 8.3 mg/dL (8.4-10.2); Carbon Dioxide 21 mmol/L (22-29); Chloride 102 mmol/L (96-108); Creatinine Clr Calc Pharmacy 148.2; Estimated Glomerular Filt Rate > 60; Glucose Random 99 mg/dL (60-115); Potassium 3.9 mmol/L (3.3-5.1); Sodium 133 mmol/L (135-145)
[2021-07-02] MEDS: ondansetron HCL 4 MG/2 ML VIAL IVPUSH (06:37)
[2021-07-02 07:59] VITALS: BP 142/99; PULSE 78; RESP 18; TEMP 36.7; O2SAT 97
[2021-07-02] MEDS: Famotidine/PF 20 MG/2 ML VIAL IVPUSH (08:09)
[2021-07-02 08:19] VITALS: PULSE 78; O2SAT 97
[2021-07-02] MEDS: Fluticasone/Vilanterol 200/25 BLST.W.DEV 1 PUFF INHALE (08:19)
--- NOTE | 2021-07-02 08:57 | MHC.CM.PN ---
nurse patient case manager note DISCHARGE PLAN -HOME NO SERVICES TRANSPORTATION -FHUSBAND SELF RESUMPTION OF HER MENTAL HEALTH COUNSELING AT [facility] PCP BARBI RUFF PATIENT INSTRUCTED TO CALL FOR POST HOSPITAL DISCHARGE BARIATRIC SURGEONS FOLLOW UP PER DISCHARGE INSTRUCTIONS MET WITH PATIENT , SHE REPORTED SHE IS INDEPENDENT IN HER ADLS AND MOBILITY, SHE CURRENTLY IS UNEMPLOYED AND ON FAMILY LEAVE SHE LIVES WITH HER , SHE HAS NO SERVICES SERVICES NOR DURABLE MEDICAL EQUIPMENT IN THE HOME PATIENT IS INVOLVED WITH [facility]. EDUCATED ABOUT THE IMPORTANCE OF HAVING A HEALTH CARE PROXY BUT WAS NOT PREPARED TO COMPLETE ONE AT THIS TIME PATIENT REPORTED THAT SHE RECEIVED HER MODERMA COVID VACCINATION NOVEMBER-DECEMBER 2020 , SHE HAS NOT RECEIVED HER BOOSTER YET . ALL QUESTIONS ANSWERED,
--- NOTE | 2021-07-02 15:13 | HO.POSTANES ---
Post Anesthesia Evaluation Post Anesthesia Evaluation Vital Signs: Vital Signs Temp Pulse Resp BP Pulse Ox 07/02/21 07:59 98.0 F 78 18 142/99 H 97 07/02/21 03:52 97 F 68 18 123/69 94 Anesthesia: General Endotracheal-GETA Mental Status: Awake Pain Control: Satisfactory Nausea/Vomiting: None Hydration: Adequate Anesthesia-Related Issues: No Anes. Related Issues
== END 2021-07-02 09:54 | disposition home or self-care (01) | DRG 403 ==
LOC: HO.SSSA 07:46 → HO.S3 10:44
PROVIDERS: Physician Assistant; Admitting Provider Surgery; PCP Internal Medicine; Visit Provider Surgery
PROC: 0DB64Z3 Excision of Stomach, Percutaneous Endoscopic Approach, Vertical (ICD-10-PCS; CPT 43845; principal; 2021-07-01 10:10)
DX: E66.01 Morbid (severe) obesity due to excess calories (principal); K44.0 Diaphragmatic hernia with obstruction, without gangrene; K74.00 Hepatic fibrosis, unspecified; Z68.37 Body mass index [BMI] 37.0-37.9, adult; K76.0 Fatty (change of) liver, not elsewhere classified; J45.909 Unspecified asthma, uncomplicated; M54.9 Dorsalgia, unspecified; K80.20 Calculus of gallbladder without cholecystitis without obstruction; Z20.822 Contact with and (suspected) exposure to COVID-19; Z79.51 Long term (current) use of inhaled steroids; Z87.891 Personal history of nicotine dependence; Z88.0 Allergy status to penicillin; Z88.6 Allergy status to analgesic agent; Z79.899 Other long term (current) drug therapy
CPT/HCPCS: 36415; 80048; 85014; 85018; 85025; 86850; 86900; 86901; 87635; 88307; 88342; 99024; A4649; J0131; J1100; J1170; J1956; J2250; J2405; J3010

== ENCOUNTER → 2021-07-07 07:29 | Outpatient (BNVA) | payer MEDICAID, SELFPAY | PROVIDERS: PCP Internal Medicine; Referring Provider Internal Medicine; Visit Provider Surgery | DX: E66.9 Obesity, unspecified (principal); Z68.35 Body mass index [BMI] 35.0-35.9, adult; Z98.84 Bariatric surgery status | CPT/HCPCS: 99212 ==

== ENCOUNTER 2021-07-08 09:15 | Outpatient (REF) | payer MEDICAID, SELFPAY | END 2021-07-08 09:16 | disposition home or self-care (01) | LOC: HO.MDS 09:15 | PROVIDERS: PCP Internal Medicine; Visit Provider Hospitalist | DX: J82.83 Eosinophilic asthma (principal) | CPT/HCPCS: 96372; J0517 ==

== ENCOUNTER 2021-09-16 10:58 | Outpatient (REF) | payer MEDICAID, SELFPAY | END 2021-09-16 10:59 | disposition home or self-care (01) | LOC: HO.MDS 10:58 | PROVIDERS: PCP Internal Medicine; Visit Provider Hospitalist | DX: J82.83 Eosinophilic asthma (principal) | CPT/HCPCS: 96372; J0517 ==

== ENCOUNTER → 2021-09-22 08:15 | Outpatient (BNVA) | payer MEDICAID, SELFPAY | PROVIDERS: PCP Internal Medicine; Visit Provider Physician Assistant ==

== ENCOUNTER 2021-10-14 12:57 | Outpatient (REF) | payer MEDICAID, SELFPAY | END 2021-10-14 12:58 | disposition home or self-care (01) | LOC: HO.MDS 12:57 | PROVIDERS: PCP Internal Medicine; Visit Provider Hospitalist | DX: J82.83 Eosinophilic asthma (principal) | CPT/HCPCS: 96372; J0517 ==

== ENCOUNTER 2021-12-29 10:26 | Outpatient (REF) | payer MEDICAID, SELFPAY | END 2021-12-29 10:27 | disposition home or self-care (01) | LOC: HO.MDS 10:26 | PROVIDERS: PCP Internal Medicine; Visit Provider Hospitalist | DX: J82.83 Eosinophilic asthma (principal) | CPT/HCPCS: 96372; J0517 ==

== ENCOUNTER 2022-01-28 10:34 | Outpatient (REF) | payer MEDICAID, SELFPAY ==
--- NOTE | ~2022-01-28 | XR_ITS ---
EXAMINATION: XR CHEST CLINICAL INFORMATION: Asthma. COMPARISON: 05/07/2021 TECHNIQUE: 2 views of the chest were obtained. FINDINGS: The lungs are well expanded. No focal consolidation. No pleural effusion. Cardiac silhouette is unchanged. XR/XR chest 2V IMPRESSION: No acute abnormality.
[2022-01-28 10:55] LABS: MANUAL DIFF FLAG NO
[2022-01-28 11:49] LABS: Basophils Percent Auto 0.4 % (0-2); Eosinophils Absolute Auto 0.1 X10*3/uL (0.0-0.4); Eosinophils Percent Auto 1.1 % (0-4); Hematocrit 39.4 % (37.0-47.0); Imm Gran Abs Auto 0.04 X10*3/uL (0.00-0.03); Imm Gran Pct Auto 0.4 % (0.0-0.4); Lymphocytes Absolute Auto 1.5 X10*3/uL (1.2-4.9); Lymphocytes Percent Auto 14.1 % (20-40); Mean Corpuscular Hemoglobin 30.3 pg (27.0-33.0); Mean Corpuscular Volume 91.8 fL (80.0-98.0); Mean Platelet Volume 10.9 fL (9.4-12.3); Monocytes Absolute Auto 0.9 X10*3/uL (0.1-1.2); Monocytes Percent Auto 8.3 % (2-11); Neutrophils Percent Auto 75.7 % (45-73); Platelet Count 218 X10*3/uL (160-400); Red Blood Count 4.29 X10*6/uL (4.20-5.50); Red Cell Distribution Width 13.4 % (11.0-16.0); White Blood Count 10.6 X10*3/uL (4.8-10.8)
[2022-01-28 12:26] LABS: Erythrocyte Sedimentation Rate 8 MM/HR (0-20)
[2022-01-30 15:33] LABS: Immunoglobulin E 21 kU/L (<OR=114)
[2022-01-30 17:51] LABS: IgA 170 mg/dL (47-310); IgG 604 mg/dL (600-1640); IgM 51 mg/dL (50-300)
[2022-01-30 17:56] LABS: Immunoglobulin G Subclass 1 255 mg/dL (382-929); Immunoglobulin G Subclass 2 257 mg/dL (241-700); Immunoglobulin G Subclass 3 43 mg/dL (22-178); Immunoglobulin G Subclass 4 3.4 mg/dL (4-86); Immunoglobulin G Total 578 mg/dL (600-1640)
== END 2022-01-28 10:35 | disposition home or self-care (01) ==
LOC: HO.XRAY 10:34
PROVIDERS: PCP Internal Medicine; Visit Provider Hospitalist
DX: D84.9 Immunodeficiency, unspecified (principal); J45.50 Severe persistent asthma, uncomplicated; J06.9 Acute upper respiratory infection, unspecified; R06.02 Shortness of breath; R06.00 Dyspnea, unspecified; D80.1 Nonfamilial hypogammaglobulinemia
CPT/HCPCS: 36415; 71046; 82784; 82785; 85025; 85652; 86003; 99212

== ENCOUNTER 2022-02-20 12:16 | Outpatient (REF) | payer MEDICAID, SELFPAY | END 2022-02-20 12:17 | disposition home or self-care (01) | LOC: HO.LNP 12:16 | PROVIDERS: Visit Provider Internal Medicine | DX: Z20.822 Contact with and (suspected) exposure to COVID-19 (principal); R05.9 Cough, unspecified | CPT/HCPCS: 87070; 87205 ==

== ENCOUNTER → 2022-02-26 10:33 | Outpatient (BNVA) | payer MEDICAID, SELFPAY | PROVIDERS: PCP Internal Medicine; Visit Provider Hospitalist | DX: J45.50 Severe persistent asthma, uncomplicated (principal); R06.02 Shortness of breath; R06.00 Dyspnea, unspecified; D72.10 Eosinophilia, unspecified; D80.1 Nonfamilial hypogammaglobulinemia; Z79.899 Other long term (current) drug therapy | CPT/HCPCS: 99212 ==

== ENCOUNTER 2022-03-10 09:49 | Outpatient (REF) | payer MEDICAID, SELFPAY ==
--- NOTE | ~2022-03-10 | CT_ITS ---
EXAMINATION: CT CHEST WITHOUT CONTRAST CLINICAL INFORMATION: Cough. COMPARISON: Chest x-ray 01/28/2022 TECHNIQUE: Multidetector volumetric CT imaging of the chest was done. Axial MIP volume rendering provided. Sagittal and coronal reformatted images were obtained. This CT examination was performed using dose optimization techniques as appropriate, variously including the following: *Automated exposure control *Adjustment of mA and/or kV according to patient size (this includes techniques or standardized protocols for targeted exams where dose is matched to indication/reason for exam; i.e. extremities or head) *Use of iterative reconstruction technique DLP: 259 mGy-cm FINDINGS: CERAMIC DESIGN ENGINEER: Well-inflated lungs. LUNGS: The lungs are well-expanded and clear of acute pneumonic consolidation. There is a 6 mm nodule right upper lobe with a broad attachment to the major fissure on axial image 149/10 and the pleural-based 2 mm nodule right middle lobe axial image 259/10. No additional nodule seen. MEDIASTINUM: The thyroid lobes are symmetric and normal. The central trachea and the bronchi widely patent. Heart size and the great vessels are normal caliber. There is no pericardial effusion. No abnormal size mediastinal or hilar lymphadenopathy seen. PLEURA: There is no pleural effusion. No pleural mass or thickening. AXILLA: Unremarkable UPPER ABDOMEN: Visualized liver, spleen, pancreas and bilateral adrenal glands are unremarkable. There is 1.6 cm laminated gallstone without wall thickening. OSSEOUS STRUCTURES: No lytic or sclerotic process seen. CT/CT chest wo con IMPRESSION: 1. No acute process. 2. To pulmonary nodules the largest one measuring 6 mm right upper lobe pleural-based question lymph node. 3. No abnormal adenopathy. Fleischner guidelines were followed.
== END 2022-03-10 09:50 | disposition home or self-care (01) ==
LOC: HO.CT 09:49
PROVIDERS: PCP Internal Medicine; Visit Provider Hospitalist
DX: R05.9 Cough, unspecified (principal); R06.02 Shortness of breath
CPT/HCPCS: 71250

== ENCOUNTER 2022-03-17 14:11 | Outpatient (REF) | payer MEDICAID, SELFPAY | END 2022-03-17 14:12 | disposition home or self-care (01) | LOC: HO.MDS 14:11 | PROVIDERS: Visit Provider Hospitalist | DX: J45.40 Moderate persistent asthma, uncomplicated (principal); J82.83 Eosinophilic asthma | CPT/HCPCS: 96372; J0517 ==

== ENCOUNTER 2022-03-26 07:21 | Outpatient (REF) | payer MEDICAID, SELFPAY | END 2022-03-26 07:22 | disposition home or self-care (01) | LOC: HO.MDS 07:21 | PROVIDERS: Visit Provider Hospitalist | DX: D80.1 Nonfamilial hypogammaglobulinemia (principal) | CPT/HCPCS: 96365; 96366; J1569 ==

== ENCOUNTER 2022-04-23 07:18 | Outpatient (REF) | payer MEDICAID, SELFPAY | END 2022-04-23 07:19 | disposition home or self-care (01) | LOC: HO.MDS 07:18 | PROVIDERS: Visit Provider Hospitalist | DX: D80.1 Nonfamilial hypogammaglobulinemia (principal) | CPT/HCPCS: 96365; 96366; J1569 ==

== ENCOUNTER 2022-04-28 18:17 | Emergency (ER) | payer MEDICAID, SELFPAY ==
[2022-04-28 21:34] VITALS: BP 137/102; PULSE 75; RESP 16; TEMP 36.6; O2SAT 99; BMI 28.2
== END 2022-04-28 23:00 | disposition left against medical advice (07) ==
PROVIDERS: Emergency Provider Emergency Medicine
DX: R10.2 Pelvic and perineal pain (principal); N93.9 Abnormal uterine and vaginal bleeding, unspecified
CPT/HCPCS: 99281; 99282

== ENCOUNTER 2022-04-29 07:44 | Emergency (ER) | payer MEDICAID, SELFPAY ==
--- NOTE | ~2022-04-29 | CT_ITS ---
EXAMINATION: CT ABDOMEN AND PELVIS WITHOUT CONTRAST CLINICAL INFORMATION: Right flank pain. COMPARISON: None. TECHNIQUE: Multidetector volumetric imaging was performed from the superior aspect of the liver through the pubic symphysis. Sagittal and coronal reformatted images were obtained on the technologist's workstation. This CT examination was performed using dose optimization techniques as appropriate, variously including the following: *Automated exposure control *Adjustment of mA and/or kV according to patient size (this includes techniques or standardized protocols for targeted exams where dose is matched to indication/reason for exam; i.e. extremities or head) *Use of iterative reconstruction technique DLP: 627 mGy-cm FINDINGS: LUNG BASES: The visualized lung bases are unremarkable. LIVER, GALLBLADDER, AND BILIARY TREE: The liver is normal in size, shape, and attenuation. No focal hepatic lesion or biliary ductal dilatation is present. There is a laminated gallstone measuring 1.57 cm. No wall thickening seen. PANCREAS: Unremarkable. SPLEEN: Unremarkable. ADRENAL GLANDS: Unremarkable. KIDNEYS AND URETERS: There is crossed-fused ectopia right kidney measuring of 14.5 cm and the left kidney measured approximately 10.6 cm. Both kidneys are slightly anteriorly rotated. No hydroureteronephrosis seen. There are no radiopaque renal calculi or hydronephrosis. No kidney is visualized in the left renal fossa. BLADDER: Unremarkable. GASTROINTESTINAL TRACT: There is scattered stool and gas seen throughout the colon without distention. Appendix is normal caliber. The small bowel loops are normal caliber. ABDOMINAL WALL: No significant hernia is appreciated. LYMPH NODES: Normal. VASCULAR: Unremarkable. Right adnexa. PELVIC VISCERA: The uterus is anteverted and appears unremarkable. There is a 2 cm cyst. There is a solitary phlebolith in the right adnexa. OSSEOUS STRUCTURES: No aggressive lytic or sclerotic process seen. CT/CT abdomen pelvis wo IV con IMPRESSION: Cross-fused right kidney ectopia. No kidney is visualized in left renal fossa. There is no radiopaque urolith or hydroureteronephrosis. Gallstone without wall thickening. 2 cm cyst right adnexa. Fleischner guidelines were followed.
[2022-04-29 08:44] VITALS: BP 124/80; PULSE 76; RESP 16; TEMP 36.3; O2SAT 100; BMI 28.4
[2022-04-29 10:20] VITALS: BP 118/84; PULSE 77; RESP 18; TEMP 36.9; O2SAT 99
[2022-04-29 10:37] LABS: MANUAL DIFF FLAG NO
[2022-04-29 10:45] LABS: Basophils Percent Auto 0.5 % (0-2); Eosinophils Absolute Auto 0.3 X10*3/uL (0.0-0.4); Eosinophils Percent Auto 3.5 % (0-4); Hemoglobin 12.7 g/dl (12.0-16.0); Imm Gran Abs Auto 0.03 X10*3/uL (0.00-0.03); Imm Gran Pct Auto 0.4 % (0.0-0.4); Lymphocytes Percent Auto 23.3 % (20-40); Mean Corpuscular HGB Conc 32.6 g/dl (31.0-35.0); Mean Corpuscular Hemoglobin 29.3 pg (27.0-33.0); Mean Corpuscular Volume 90.1 fL (80.0-98.0); Monocytes Absolute Auto 0.7 X10*3/uL (0.1-1.2); Monocytes Percent Auto 8.6 % (2-11); Neutrophils Absolute Auto 5.5 x10*3/uL (2.0-8.3); Neutrophils Percent Auto 63.7 % (45-73); Platelet Count 201 X10*3/uL (160-400); Red Blood Count 4.33 X10*6/uL (4.20-5.50); Red Cell Distribution Width 12.8 % (11.0-16.0); White Blood Count 8.6 X10*3/uL (4.8-10.8)
--- NOTE | 2022-04-29 10:53 | ED_ITS ---
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 Patient denies any nausea, vomiting, or vaginal lesions. Patient denies any vaginal bleeding. Patient states only seeing blood when she urinates. Patient denies any recent trauma. Related Data Home Medications Medication Instructions Recorded Confirmed albuterol sulfate 90 mcg/actuation 2 puff inhalation Q6H PRN 03/03/21 02/26/22 aerosol inhaler Shortness Of Breath Or Wheezing Previous Rx's Medication Instructions Recorded montelukast 10 mg tablet 10 mg PO BEDTIME 30 days #30 tabs 04/11/21 (Singulair) fluticasone furoate 200 1 inh inhalation DAILY 30 days #60 05/05/21 mcg-vilanterol 25 mcg/dose ea inhalation powder (Breo Ellipta) umeclidinium 62.5 mcg/actuation 1 inh inhalation DAILY 30 days #30 05/05/21 blister powder for inhalation ea (Incruse Ellipta) benralizumab 30 mg/mL subcutaneous 30 mg subcut Q8W 365 days #9 mL 05/22/21 syringe (Fasenra) fluticasone fur. 200 mcg-umeclid 1 inh inhalation DAILY 30 days #60 06/02/21 62.5 mcg-vilant 25 mcg ea inhalat.powder (Trelegy Ellipta) ondansetron HCl 4 mg tablet 4 mg PO Q12H nausea and vomiting 06/27/21 (Zofran) #20 tabs pantoprazole 40 mg tablet,delayed 40 mg PO DAILY #30 tabs 06/27/21 release sucralfate 100 mg/mL oral 10 ml PO BID #400 mL 06/27/21 suspension azelastine 137 mcg (0.1 %) nasal 2 spray intranasal BID 30 days #30 01/28/22 spray aerosol mL azithromycin 250 mg tablet 250 mg PO 3XW 28 days #12 tabs 01/28/22 fluticasone propionate 50 2 spray intranasal DAILY 30 days 01/28/22 mcg/actuation nasal #15.8 mL spray,suspension cephalexin 500 mg capsule 500 mg PO QID 7 days #28 caps 04/29/22 Allergies Allergy/AdvReac Type Severity Reaction Status Date / Time aspirin [ASPIRIN] Allergy Severe DUE TO Verified 02/26/22 10:45 KIDNEY FUNCTION (PT HAS 1 KIDNEY) NSAIDS (Non-Steroidal Allergy Severe KIDNEY Verified 02/26/22 10:45 Anti-Inflamma FUNCTION [NSAIDS (NON-STEROIDAL ANTI-INFLAMMA] Penicillins Allergy Mild Rash Verified 02/26/22 10:45 oranges Allergy Severe Itching on Uncoded 02/26/22 10:45 Skin strawberries Allergy Severe Itching on Uncoded 02/26/22 10:45 Mouth Review of Systems Review of Systems: Right flank pain, hematuria, dysuria Yes all other systems are reviewed and are negative [facility] Past Medical History Medical History (Updated 04/29/22 @ 16:17 by JOHNNIE Murry) Adjustment disorder, unspecified Anxiety Asthma BMI 36.0-36.9,adult BMI 37.0-37.9, adult Body mass index (BMI) of 40.1 to 44.9 in adult Bronchitis Cholelithiasis Congenital absence of kidney Cough Dyspnea Eosinophilia GERD (gastroesophageal reflux disease) Hypersomnolence Liver fibrosis Morbid obesity Obesity Osteoarthritis Shortness of breath Shortness of breath Snoring Steatosis, liver Tachycardia Vitamin D deficiency Surgical History (Updated 07/01/21 @ 13:37 by Carmela Douglas PA-C) H/O tubal ligation Hx of wisdom tooth extraction Family History Family History Mother Diabetes Family history of thyroid problem Father Emphysema lung High cholesterol Hypertension Sister High cholesterol Hypertension Brother No problems noted. Daughter No problems noted. Daughter No problems noted. 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) Do you presently have visiting nurse or other home services: No Alcohol intake: current Alcohol intake frequency: does not drink Patient Tobacco Use Status: Former Tobacco user Quit Date: 02/2021 Tobacco use type: Cigarette Cigarettes Per Day: 3 Advance Directives: No Advance Directives Information Provided: No service: No Current occupational status: unemployed Physical Exam Vital Signs: Vital Signs: Last Vital Signs Temp 98.5 F 04/29/22 10:20 Pulse 77 04/29/22 10:20 Resp 18 04/29/22 10:20 BP 118/84 04/29/22 10:20 Pulse Ox 99 04/29/22 10:20 O2 Del Method 04/29/22 10:20 BMI result Body Mass Index 28.4 Const: General: cooperative, healthy appearing, comfortable, no acute distress, well developed, alert, awake and Physically active Orientation/consciousness: oriented to person, oriented to place, oriented to time and patient oriented x3 HEENT: Head: Yes normal to inspection, Yes No palpable skull fracture present, Yes normocephalic, Yes atraumatic and No abrasion Eyes: General: appearance normal, both eyes and all related structures Neck: Neck: Yes normal visual inspection, Yes full ROM, Yes no lymphadenopathy, Yes no meningeal signs, Yes trachea midline, Yes supple, No anterior neck swelling and No tender Chest: Chest palpation & inspection: normal inspection of the chest and normal palpation of entire chest wall Resp: Effort & Inspection: normal respiratory effort and able to speak in complete sentences Cardio: Jugular venous distension: no JVD Heart sounds: S1 normal heart sound present and S2 normal heart sound present GI: Inspection: Yes normal to inspection and No abdominal wall ecchymosis Palpation (GI): Soft to palpation, not firm, Tenderness to palpation present (GI) in the RLQ and suprapubicly, no guarding and not rigid : General: Yes CVA tenderness (right) and Yes no CVA tenderness Back/Spine/Pelvis: Back: no CVA tenderness, CVA tenderness (right) and No back tenderness Skin: General skin exam: no rashes or lesions noted and elasticity normal Neuro: General: oriented to person, oriented to place, oriented to time, patient oriented x3, gait normal, tone normal, Normal light touch and pain sensation, no meningeal signs and CN's II-XI intact bilaterally Extrem: General: Yes normal to inspection and Yes full ROM Psych: Appearance: grossly normal, well kempt and not disheveled Course Course Course Narrative: Will do labs and urine. Initial history physical exam indicate initial possible UTI versus kidney stones. Waiting for urine to rule out . Patient not in distress Reevaluation(s) Reevaluation #1: Patient labs came back normal. CT scan negative for kidney stones. UA shows UTI. Patient discharged with antibiotics. Kidney function normal. Time: 16:14 MDM - Female Genitourinary MDM Narrative Medical decision making narrative: UTI Lab Data Result diagrams: 04/29/22 10:33 04/29/22 10:33 Labs: Lab Results 04/29/22 04/29/22 04/29/22 Range/Units 10:33 10:33 13:28 WBC 8.6 (4.8-10.8) X10*3/uL RBC 4.33 (4.20-5.50) X10*6/uL Hgb 12.7 (12.0-16.0) g/dl Hct 39.0 (37.0-47.0) % MCV 90.1 (80.0-98.0) fL MCH 29.3 (27.0-33.0) pg MCHC 32.6 (31.0-35.0) g/dl RDW 12.8 (11.0-16.0) % Plt Count 201 (160-400) X10*3/uL MPV 11.0 (9.4-12.3) fL Immature Gran % (Auto) 0.4 (0.0-0.4) % Neut % (Auto) 63.7 (45-73) % Lymph % (Auto) 23.3 (20-40) % Riley % (Auto) 8.6 (2-11) % Eos % (Auto) 3.5 (0-4) % Baso % (Auto) 0.5 (0-2) % Lymph # (Auto) 2.0 (1.2-4.9) X10*3/uL Riley # (Auto) 0.7 (0.1-1.2) X10*3/uL Eos # (Auto) 0.3 (0.0-0.4) X10*3/uL Baso # (Auto) 0.0 (0.0-0.2) X10*3/uL Abs Immat Gran (auto) 0.03 (0.00-0.03) X10*3/uL Absolute Neuts (auto) 5.5 (2.0-8.3) x10*3/uL Absolute Nucleated RBC 0.000 (0.0-0.012) X10*3/uL Nucleated RBC % (auto) 0.0 (0.0-0.2) /100WBC Sodium 139 (135-145) mmol/L Potassium 4.3 (3.3-5.1) mmol/L Chloride 103 (96-108) mmol/L Carbon Dioxide 27 (22-29) mmol/L Anion Gap 13 (12-20) BUN 13 (9-16) mg/dL Creatinine 0.73 (0.5-1.4) mg/dL Estim Creat Clear Calc 114.6 Estimated GFR > 60 Random Glucose 78 (60-115) mg/dL Calcium 8.9 D (8.4-10.2) mg/dL Total Bilirubin 0.6 (0.0-1.0) mg/dL AST 18 (5-31) U/L ALT 11 (0-31) U/L Alkaline Phosphatase 59 (39-117) U/L Total Protein 6.8 (6.5-8.0) g/dL Albumin 3.9 (3.5-5.0) g/dL Beta HCG, Quant < 2 mIU/mL Urine Color Dark Yellow Urine Appearance Clear Urine pH 7.0 (5.0-9.0) Ur Specific [place] 1.010 (1.005-1.025) Urine Protein Negative (Neg-Trace) mg/dL Urine Glucose (UA) Negative (Negative) mg/dL Urine Ketones Negative (Negative) mg/dL Urine Blood Trace H (Negative) Urine Nitrite Positive H (Negative) Ur Leukocyte Esterase Trace H (Negative) Urine RBC 6-10 H (0-2) /HPF Urine WBC 6-10 H (0-5) /HPF Ur Squamous Epith Cells 0-2 (0-2) /HPF Urine Bacteria Trace (None Seen) Hyaline Casts 0-2 (0-2) /LPF Urine Test (NEGATIVE) 04/29/22 Range/Units 13:28 WBC (4.8-10.8) X10*3/uL RBC (4.20-5.50) X10*6/uL Hgb (12.0-16.0) g/dl Hct (37.0-47.0) % MCV (80.0-98.0) fL MCH (27.0-33.0) pg MCHC (31.0-35.0) g/dl RDW (11.0-16.0) % Plt Count (160-400) X10*3/uL MPV (9.4-12.3) fL Immature Gran % (Auto) (0.0-0.4) % Neut % (Auto) (45-73) % Lymph % (Auto) (20-40) % Riley % (Auto) (2-11) % Eos % (Auto) (0-4) % Baso % (Auto) (0-2) % Lymph # (Auto) (1.2-4.9) X10*3/uL Riley # (Auto) (0.1-1.2) X10*3/uL Eos # (Auto) (0.0-0.4) X10*3/uL Baso # (Auto) (0.0-0.2) X10*3/uL Abs Immat Gran (auto) (0.00-0.03) X10*3/uL Absolute Neuts (auto) (2.0-8.3) x10*3/uL Absolute Nucleated RBC (0.0-0.012) X10*3/uL Nucleated RBC % (auto) (0.0-0.2) /100WBC Sodium (135-145) mmol/L Potassium (3.3-5.1) mmol/L Chloride (96-108) mmol/L Carbon Dioxide (22-29) mmol/L Anion Gap (12-20) BUN (9-16) mg/dL Creatinine (0.5-1.4) mg/dL Estim Creat Clear Calc Estimated GFR Random Glucose (60-115) mg/dL Calcium (8.4-10.2) mg/dL Total Bilirubin (0.0-1.0) mg/dL AST (5-31) U/L ALT (0-31) U/L Alkaline Phosphatase (39-117) U/L Total Protein (6.5-8.0) g/dL Albumin (3.5-5.0) g/dL Beta HCG, Quant mIU/mL Urine Color Urine Appearance Urine pH (5.0-9.0) Ur Specific [place] (1.005-1.025) Urine Protein (Neg-Trace) mg/dL Urine Glucose (UA) (Negative) mg/dL Urine Ketones (Negative) mg/dL Urine Blood (Negative) Urine Nitrite (Negative) Ur Leukocyte Esterase (Negative) Urine RBC (0-2) /HPF Urine WBC (0-5) /HPF Ur Squamous Epith Cells (0-2) /HPF Urine Bacteria (None Seen) Hyaline Casts (0-2) /LPF Urine Test NEGATIVE (NEGATIVE) Discharge Plan Discharge Clinical Impression: UTI (urinary tract infection) Patient Disposition: Home, Self-Care Instructions: Urinary Tract Infection in Women (ED) Additional Instructions: Carvajal tomograf?a computarizada result? negativa para c?lculos renales o signos de infecci?n renal. [place]al an?lisis de ana result? normal. Carvajal orina mostr? dennys infecci?n del tracto urinario. Ser? dado de jerome con antibi?ticos. Regrese al servicio de urgencias de inmediato si tiene fiebre, escalofr?os, dolor intenso en el costado, n?useas, v?mitos, dolor abdominal, hematuria macrosc?pica o cualquier otro s?ntoma preocupante. Por favor, pebbles un seguimiento con el proveedor de atenci?n primaria Prescriptions: New cephalexin 500 mg capsule 500 mg PO QID 7 Days Qty: 28 0RF No Action Breo Ellipta 200-25 mcg/dose blister with device 1 inh inhalation DAILY 30 Days Qty: 60 11RF Incruse Ellipta 62.5 mcg/actuation blister with device 1 inh inhalation DAILY 30 Days Qty: 30 11RF Fasenra 30 mg/mL syringe 30 mg subcut Q8W 365 Days Qty: 9 0RF Rx Instructions: Loading dose: 30mg SC every 4 weeks x 2, then every 8 weeks albuterol sulfate 90 mcg/actuation HFA aerosol inhaler 2 puff inhalation Q6H PRN (Reason: Shortness Of Breath Or Wheezing) montelukast [Singulair] 10 mg tablet 10 mg PO BEDTIME 30 Days Qty: 30 11RF Trelegy Ellipta 200-62.5-25 mcg blister with device 1 inh inhalation DAILY 30 Days Qty: 60 12RF pantoprazole 40 mg tablet,delayed release (DR/EC) 40 mg PO DAILY Qty: 30 2RF sucralfate 100 mg/mL suspension 10 ml PO BID Qty: 400 2RF ondansetron HCl [Zofran] 4 mg tablet 4 mg PO Q12H Qty: 20 0RF azelastine 137 mcg (0.1 %) aerosol,spray 2 spray intranasal BID 30 Days Qty: 30 6RF Rx Instructions: administer into each nostril fluticasone propionate 50 mcg/actuation spray,suspension 2 spray intranasal DAILY 30 Days Qty: 15.8 11RF azithromycin 250 mg tablet 250 mg PO 3XW 28 Days Qty: 12 6RF Rx Instructions: Take 1 tablet on Wednesday/Wednesday/Wednesday Stand Alone Forms: Work/School Release Print Language: Croatian
[2022-04-29 10:54] LABS: Alanine Aminotransferase 11 U/L (0-31); Albumin Level 3.9 g/dL (3.5-5.0); Alkaline Phosphatase 59 U/L (39-117); Anion Gap 13 (12-20); Aspartate Amino Transferase 18 U/L (5-31); Bilirubin Total 0.6 mg/dL (0.0-1.0); Blood Urea Nitrogen 13 mg/dL (9-16); Calcium 8.9 mg/dL (8.4-10.2); Carbon Dioxide 27 mmol/L (22-29); Chloride 103 mmol/L (96-108); Creatinine Clr Calc Pharmacy 114.6; Estimated Glomerular Filt Rate > 60; Glucose Random 78 mg/dL (60-115); Potassium 4.3 mmol/L (3.3-5.1); Sodium 139 mmol/L (135-145); Total Protein 6.8 g/dL (6.5-8.0)
[2022-04-29 11:05] LABS: HCG Quantitative < 2 mIU/mL
[2022-04-29 13:34] LABS: Appearance Urine Clear; Color Urine Dark Yellow; Glucose Urine UA Negative (Negative); Leukocyte Esterase Urine Trace (Negative); Nitrite Urine Positive (Negative); UMIC TRIGGER UACC YES; Urine Blood Trace (Negative); Urine Ketones Negative (Negative); Urine Protein Negative (Neg-Trace)
[2022-04-29 13:39] LABS: UPreg QC Valid YES; Urine Pregnancy NEGATIVE (NEGATIVE)
[2022-04-29 13:42] LABS: Bacteria Urine Trace (None Seen); Hyaline Casts Urine 0-2 /LPF (0-2); Squamous Epithelial Cell Urine 0-2 /HPF (0-2); UACC Culture Trigger YES
== END 2022-04-29 18:46 | disposition home or self-care (01) ==
PROVIDERS: Physician Assistant; Emergency Provider Emergency Medicine; PCP Internal Medicine
DX: N39.0 Urinary tract infection, site not specified (principal); R31.9 Hematuria, unspecified; R10.9 Unspecified abdominal pain; M54.50 Low back pain, unspecified; Z79.899 Other long term (current) drug therapy; F17.210 Nicotine dependence, cigarettes, uncomplicated; Z71.6 Tobacco abuse counseling
CPT/HCPCS: 36415; 74176; 80053; 81001; 81025; 84702; 85025; 87086; 99283; 99284

== ENCOUNTER → 2022-05-07 13:25 | Outpatient (BNVA) | payer MEDICAID, SELFPAY | PROVIDERS: PCP Internal Medicine; Visit Provider Hospitalist | DX: Z01.811 Encounter for preprocedural respiratory examination (principal); J45.50 Severe persistent asthma, uncomplicated; R91.8 Other nonspecific abnormal finding of lung field; D80.1 Nonfamilial hypogammaglobulinemia; Z79.899 Other long term (current) drug therapy | CPT/HCPCS: 94010; 99212 ==

== ENCOUNTER 2022-05-21 09:39 | Outpatient (REF) | payer MEDICAID, SELFPAY | END 2022-05-21 09:40 | disposition home or self-care (01) | LOC: HO.MDS 09:39 | PROVIDERS: Visit Provider Hospitalist | DX: D80.1 Nonfamilial hypogammaglobulinemia (principal) | CPT/HCPCS: 96365; 96366; J1569 ==

== ENCOUNTER 2022-06-16 13:53 | Outpatient (REF) | payer MEDICAID, SELFPAY ==
[2022-06-16 14:17] LABS: MANUAL DIFF FLAG NO
[2022-06-16 14:50] LABS: Basophils Absolute Auto 0.1 X10*3/uL (0.0-0.2); Basophils Percent Auto 0.6 % (0-2); Eosinophils Absolute Auto 0.4 X10*3/uL (0.0-0.4); Eosinophils Percent Auto 4.7 % (0-4); Hematocrit 40.5 % (37.0-47.0); Hemoglobin 13.1 g/dl (12.0-16.0); Imm Gran Abs Auto 0.02 X10*3/uL (0.00-0.03); Imm Gran Pct Auto 0.2 % (0.0-0.4); Lymphocytes Absolute Auto 2.4 X10*3/uL (1.2-4.9); Lymphocytes Percent Auto 29.9 % (20-40); Mean Corpuscular HGB Conc 32.3 g/dl (31.0-35.0); Mean Corpuscular Hemoglobin 29.1 pg (27.0-33.0); Mean Platelet Volume 10.9 fL (9.4-12.3); Monocytes Absolute Auto 0.5 X10*3/uL (0.1-1.2); Monocytes Percent Auto 6.1 % (2-11); Neutrophils Absolute Auto 4.8 x10*3/uL (2.0-8.3); Neutrophils Percent Auto 58.5 % (45-73); Platelet Count 240 X10*3/uL (160-400); Red Cell Distribution Width 13.2 % (11.0-16.0); White Blood Count 8.2 X10*3/uL (4.8-10.8)
[2022-06-16 14:54] LABS: INTERNATIONAL NORM RATIO 0.8 (0.9-1.1); Prothrombin Time 9.5 SEC (10.0-13.1)
[2022-06-16 14:57] LABS: Partial Thromboplastin Time 29.2 SEC (26.0-36.4)
[2022-06-16 15:31] LABS: Estimated Average Glucose 97 mg/dL
[2022-06-16 15:56] LABS: Alanine Aminotransferase 13 U/L (0-31); Albumin Level 4.3 g/dL (3.5-5.0); Alkaline Phosphatase 60 U/L (39-117); Anion Gap 15 (12-20); Aspartate Amino Transferase 20 U/L (5-31); Bilirubin Total 0.3 mg/dL (0.0-1.0); Blood Urea Nitrogen 14 mg/dL (9-16); Calcium 9.4 mg/dL (8.4-10.2); Carbon Dioxide 28 mmol/L (22-29); Chloride 101 mmol/L (96-108); Estimated Glomerular Filt Rate > 60; Glucose Random 82 mg/dL (60-115); Potassium 4.3 mmol/L (3.3-5.1); Sodium 140 mmol/L (135-145); Total Protein 6.9 g/dL (6.5-8.0)
== END 2022-06-16 13:54 | disposition home or self-care (01) ==
LOC: HO.LAB 13:53
PROVIDERS: PCP Internal Medicine; Visit Provider Surgery
DX: K80.20 Calculus of gallbladder without cholecystitis without obstruction (principal)
CPT/HCPCS: 36415; 80053; 83036; 85025; 85610; 85730

== ENCOUNTER 2022-06-17 07:09 | Outpatient (REF) | payer MEDICAID, SELFPAY | END 2022-06-17 07:10 | disposition home or self-care (01) | LOC: HO.MDS 07:09 | PROVIDERS: Visit Provider Hospitalist | DX: D80.1 Nonfamilial hypogammaglobulinemia (principal) | CPT/HCPCS: 96365; 96366; J1569 ==

== ENCOUNTER 2022-06-18 08:36 | Day surgery (SDC) | payer MEDICAID, SELFPAY ==
--- NOTE | 2022-06-15 17:46 | MHC.SHP ---
Pre-Procedural Eval Section A Date of Service: 06/15/22 The patient is an INPATIENT: No The History & Physical has been completed within 30 days and I have reviewed it.: Yes Section B Chief Complaint: Cholecystitis, unspecified Relevant Family History (Specify if Yes): No Relevant Social History: None Present Medications: None Medical History: No relevant PMH History of Previous Operations: Relevant previous surgery/procedure and date(s) (sleeve gastrectomy) Allergies: Allergies Allergy/AdvReac Type Severity Reaction Status Date / Time aspirin [ASPIRIN] Allergy Severe DUE TO Verified 05/07/22 13:31 KIDNEY FUNCTION (PT HAS 1 KIDNEY) NSAIDS (Non-Steroidal Allergy Severe KIDNEY Verified 05/07/22 13:31 Anti-Inflamma FUNCTION [NSAIDS (NON-STEROIDAL ANTI-INFLAMMA] Penicillins Allergy Mild Rash Verified 05/07/22 13:31 oranges Allergy Severe Itching on Uncoded 05/07/22 13:31 Skin strawberries Allergy Severe Itching on Uncoded 05/07/22 13:31 Mouth Review of Systems Sugical H&P ROS: Negative: Constitution, Cardiovascular, Respiratory, Neurological, Psychiatric, Hem-Onc, Allergic/Immunologic, Gastrointestinal, Genitourinary, Musculoskeletal, Integumentary, Endocrine and Eyes/Ears/Nose/Throat Exam Surgical H&P Exam: Normal: HEENT, Normal: Heart, Normal: Lungs, Normal: Extremities, Normal: Abdomen, Normal: Skin and Normal: Neurological Plan Diagnosis/Plan: Unchanged I have reviewed the history and physical and performed a pertinent physical examination on my patient. No changes have occurred unless specified.
--- NOTE | 2022-06-17 10:21 | HO.ANESPROP2 ---
Documented by User: Michelle Donald NP 06/17/22 10:24 HPI - Anesthesia Eval Consult details Narrative: 36yo F for Cholecystectomy Laparoscopic s/p gastric sleeve 06/2021 with GA-ETT 7 optimized per pulmo to undergo anesthesia (planned back surgery also) PMFSH Active Problems Active Problems: All Active Problems (Updated 06/15/22 @ 17:51 by Aquiles Pettit MD) Cholelithiasis (Acute) Pulmonary nodules (Acute) Pre-op chest exam (Acute) Shortness of breath (Acute) Cough (Acute) URI (upper respiratory infection) (Acute) Hypogammaglobulinemia (Acute) Immunodeficiency (Acute) BMI 35.0-35.9,adult (Acute) Obesity (Acute) S/P laparoscopic sleeve gastrectomy (Acute) Status post repair of paraesophageal diaphragmatic hernia (Acute) Liver fibrosis (Acute) Steatosis, liver (Acute) Diaphragmatic hernia (Acute) Morbid obesity (Acute) GERD (gastroesophageal reflux disease) (Acute) Osteoarthritis (Acute) Asthma (Acute) Past Medical History Medical History (Updated 11/20/22 @ 15:27 by Juan Gonzalez MD) Adjustment disorder, unspecified Anxiety Asthma BMI 36.0-36.9,adult BMI 37.0-37.9, adult Body mass index (BMI) of 40.1 to 44.9 in adult Bronchitis Cholelithiasis Congenital absence of kidney Cough Dyspnea Eosinophilia GERD (gastroesophageal reflux disease) Hypersomnolence Liver fibrosis Morbid obesity Murmur Obesity Osteoarthritis Palpitations Pulmonary nodules Shortness of breath Shortness of breath Snoring Steatosis, liver Tachycardia Vitamin D deficiency Family History Family History Mother Diabetes Family history of thyroid problem Father Emphysema lung High cholesterol Hypertension Sister High cholesterol Hypertension Brother No problems noted. Daughter No problems noted. Daughter No problems noted. 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 at home: Yes (children age 15+16) Do you presently have visiting nurse or other home services: No Alcohol intake: current Alcohol intake frequency: does not drink Patient Tobacco Use Status: Former Tobacco user Quit Date: 2019 Tobacco use type: Cigarette Cigarettes Per Day: 3 service: No Current occupational status: unemployed Meds Allergies Allergy/AdvReac Type Severity Reaction Status Date / Time aspirin [ASPIRIN] Allergy Severe DUE TO Verified 11/20/22 15:08 KIDNEY FUNCTION (PT HAS 1 KIDNEY) NSAIDS (Non-Steroidal Allergy Severe KIDNEY Verified 11/20/22 15:08 Anti-Inflamma FUNCTION [NSAIDS (NON-STEROIDAL ANTI-INFLAMMA] Penicillins Allergy Mild Rash Verified 11/20/22 15:08 oranges Allergy Severe Itching on Uncoded 11/20/22 15:08 Skin strawberries Allergy Severe Itching on Uncoded 11/20/22 15:08 Mouth Home Medications Medication Instructions Recorded Confirmed Last Taken Type aripiprazole 5 mg tablet 5 mg PO DAILY 05/07/22 06/18/22 Unknown History cetirizine 10 mg tablet (Zyrtec) 10 mg PO DAILY PRN Allergy Symptoms 05/07/22 06/18/22 Unknown History duloxetine 60 mg capsule,delayed 60 mg PO DAILY 05/07/22 06/18/22 Unknown History release immune glob,gamma (IgG) 10 10 g IV Q4W 06/16/22 06/18/22 Unknown History %-gly-IgA over 50 mcg/mL injection solution (Gammagard Liquid) nebulizers 11/20/22 Unknown History Exam Exam Date and Time: June 17, 2022 1021 Pertinent Lab Results Pertinent Lab Results: Laboratory Tests 06/16/22 14:00 Blood Type O Positive Antibody Screen NEGATIVE Narrative Narrative: Laboratory Tests 06/16/22 06/16/22 14:15 14:15 WBC 8.2 Hgb 13.1 Hct 40.5 Plt Count 240 Sodium 140 Potassium 4.3 Chloride 101 Carbon Dioxide 28 BUN 14 Creatinine 0.74 Assessment and Plan Assessment Anesthesia Assessment: Chart Reviewed Final Anesthetic Review Family History of Problems with Anesthesia: No History of Problems with Anesthesia: No Documented by User: Stefan Wang MD 12/17/22 17:33 [facility] Past Medical History Medical History (Updated 11/20/22 @ 15:27 by Juan Gonzalez MD) Adjustment disorder, unspecified Anxiety Asthma BMI 36.0-36.9,adult BMI 37.0-37.9, adult Body mass index (BMI) of 40.1 to 44.9 in adult Bronchitis Cholelithiasis Congenital absence of kidney Cough Dyspnea Eosinophilia GERD (gastroesophageal reflux disease) Hypersomnolence Liver fibrosis Morbid obesity Murmur Obesity Osteoarthritis Palpitations Pulmonary nodules Shortness of breath Shortness of breath Snoring Steatosis, liver Tachycardia Vitamin D deficiency Family History Family History Mother Diabetes Family history of thyroid problem Father Emphysema lung High cholesterol Hypertension Sister High cholesterol Hypertension Brother No problems noted. Daughter No problems noted. Daughter No problems noted. 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 to a significant other at home: Yes (children age 15+16) Do you presently have visiting nurse or other home services: No Alcohol intake: current Alcohol intake frequency: does not drink Patient Tobacco Use Status: Former Tobacco user Quit Date: 2019 Tobacco use type: Cigarette Cigarettes Per Day: 3 service: No Current occupational status: unemployed Meds Allergies Allergy/AdvReac Type Severity Reaction Status Date / Time aspirin [ASPIRIN] Allergy Severe DUE TO Verified 11/20/22 15:08 KIDNEY FUNCTION (PT HAS 1 KIDNEY) NSAIDS (Non-Steroidal Allergy Severe KIDNEY Verified 11/20/22 15:08 Anti-Inflamma FUNCTION [NSAIDS (NON-STEROIDAL ANTI-INFLAMMA] Penicillins Allergy Mild Rash Verified 11/20/22 15:08 oranges Allergy Severe Itching on Uncoded 11/20/22 15:08 Skin strawberries Allergy Severe Itching on Uncoded 11/20/22 15:08 Mouth Home Medications Medication Instructions Recorded Confirmed Last Taken Type aripiprazole 5 mg tablet 5 mg PO DAILY 05/07/22 06/18/22 Unknown History cetirizine 10 mg tablet (Zyrtec) 10 mg PO DAILY PRN Allergy Symptoms 05/07/22 06/18/22 Unknown History duloxetine 60 mg capsule,delayed 60 mg PO DAILY 05/07/22 06/18/22 Unknown History release immune glob,gamma (IgG) 10 10 g IV Q4W 06/16/22 06/18/22 Unknown History %-gly-IgA over 50 mcg/mL injection solution (Gammagard Liquid) nebulizers 11/20/22 Unknown History Exam Airway Mallampati Class: III Neck ROM: Full Loose/Missing/Broken Teeth: Yes (Fillings) Assessment and Plan Assessment Anesthesia Assessment: Anesthesia Plan Discussed Final Anesthetic Review NPO: Yes ASA Class: III Final Preanesthetic Review: Meds/Allgs Chart Reviewed, Consent Obtained/Reviewed and Anes Risks/Benef Reviewed Patient Risk: Intermediate Procedure Risk: Intermediate Anesthetic Plan Anesthetic Plan: GA Disposition: Standard PACU
[2022-06-18] VITALS (9 sets, daily range): BP systolic 111–127; BP diastolic 75–92; PULSE 68–89; RESP 16–18; TEMP 36.7–37.6; O2SAT 95–100; BMI 27.9
[2022-06-18] MEDS: Lactated Ringers 1,000 ML 100 ML IVCONT (09:11)
[2022-06-18 09:19] LABS: COVID-19 Test Negative (Negative)
--- NOTE | 2022-06-18 11:28 | P.BOP_ITS ---
Brief Operative Note Date of Service: 06/18/22 Pre-op diagnosis: Symptomatic cholelithiasis Post-op diagnosis: same Procedure: PROCEDURE DATE: 06/18/22 PREOPERATIVE DIAGNOSIS: Symptomatic cholelithiasis, mid epigastric and right upper quadrant abdominal pain POSTOPERATIVE DIAGNOSIS: Same as above. PROCEDURE: Laparoscopic cholecystectomy Surgeon: Ashu Pettit M.D.. Ph.D. Supervisor Stage Carpentry: Scott Mitchell PA-C Anesthesia: General endotracheal anesthesia Estimated blood loss: Minimal FINDINGS AND PROCEDURE: OPERATIVE INDICATIONS: The patient is a 36 year old female known to me who underwent a laparoscopic sleeve gastrectomy. The patient had remarkable weight loss so far and had a completely uneventful recovery. The patient was doing very well but has recently been complaining of persistent mid epigastric and right upper quadrant abdominal pain which is mostly postprandial. Ultrasound of the abdomen and pelvis prior to the sleeve gastrectomy was consistent with cholelithiasis. Based on this information Irecommended laparoscopic cholecystectomy. Risks and complications of the surgery were discussed with the patient in advance particularly the possibility of conversion to an open surgery, bleeding, infection, obstruction, deep vein thrombosis or pulmonary embolism, bile leak or major bile duct injury that may require surgical intervention. The patient understood the risks and was in agreement with the plan. PROCEDURE: After informed consent was obtained by the patient, the patient was transferred to the Operating Room and was placed in the supine position. The patient was given preoperative antibiotics and after successful induction of general anesthesia, pneumatic compression devices were placed. The patient was then prepped and draped in the usual sterile manner and abdominal access was established with the Yen technique. The abdomen was insufflated with C02 to a pressure of 15 mmHg. A 5 mm Versi-step port was placed, slightly to the right and superior from the umbilicus. The 5 mm camera was introduced. We inspected the area where the port had been placed and there was no injury. The patient was then placed initially in a steep reverse Trendelenburg position and three additional ports were placed, specifically a 12 mm Versi-step port just to the right of the midline below the xiphoid process and two 5 mm Versi-step ports at the right upper quadrant and right flank. At that point we positioned back the transverse colon and the omentum above the small intestine and then the patient was placed in a steep reverse Trendelenburg position tilted to the left side. The gallbladder was retracted cephalad and laterally. The peritoneal attachments of the gallbladder at the triangle of Calot posteriorly and anteriorly were taken down. The cystic duct and artery were both seen. They were completely dissected free, skeletonized all the way to the infundibulum of the gallbladder. In a similar fashion we also cleaned the liver bed just behind the cystic artery to make sure there was no additional structures in this area. Once we confirmed that both structures were entering into the gallbladder and there were no other structures in the area, they were both clipped with two clips proximally (duct), one clip proximally (artery) and one distally for each and were cut in-between. We then using the electrocautery we slowly took down the gallbladder from the liver bed. Small areas of bleeding from the liver parenchyma were controlled with the cautery. After the gallbladder was completely detached from the liver bed, it was placed in an EndoCatch bag and was removed without difficulty from the xiphoid port. We then inspected the clips at the cystic duct and artery and were both in place. There was no active bleeding from the liver bed. We thoroughly irrigated the right upper quadrant and we removed all fluid until clear. At that point the patient was placed in supine position, we deflated the abdomen and we removed all ports under direct vision and no bleeding was noted from any of the port sites. The fascia of the 12 mm port was closed using a #1 Polysorb suture. 30cc Ropivacaine plain were used to infiltrate the fascial closure as well as all skin incisions. A total of 7ml of Zynrelef was applied in the Yen wound. The wounds were irrigated with saline mixed with antibiotic solution and then the skin was closed with 4-0 Monocryl subcuticular sutures antibiotic-coated. Steri-strips and OpSites were used to cover all incisions. The patient extubated and was transferred in stable condition to the Recovery Room for further care. I was present and performed all steps of the procedure. Mr Mitchell was the rn first assistant. There were no residents to assist with this case. Ashu Pettit M.D., Ph.D., F.A.C.S. Surgeon: Aquiles Pettit MD Anesthesia: GETA, local and other (TAP block and 7ml Zynrelef) Was an Supervisor Stage Carpentry used for this Procedure?: No Supervisor Stage Carpentry: Scott Mitchell Estimated blood loss (mL): 10 IV fluids (mL): 1,000 Urine output (mL): 0 (No Oakes to record) Pathology: other (Gallbladder) Condition: stable Disposition: PACU
--- NOTE | 2022-06-18 11:44 | PC.NURSE ---
Stripper Apprentice requested by patient during anesthesia consent for clarification of terminology. Stripper Apprentice not requested by patient during surgical consent, per patient I understand everything .
[2022-06-18] MEDS: oxyCODONE HCl Immed Release 5 MG TABLET PO (14:39)
[2022-06-18] MEDS: fentaNYL citrate/PF 100 MCG/2 ML VIAL 25 MCG IVPUSH (14:40)
== END 2022-06-18 15:56 | disposition home or self-care (01) ==
PROVIDERS: PCP Internal Medicine; Visit Provider Surgery
PROC: 0FT44ZZ Resection of Gallbladder, Percutaneous Endoscopic Approach (ICD-10-PCS; CPT 47562; principal; 2022-06-18 10:20)
DX: K80.10 Calculus of gallbladder with chronic cholecystitis without obstruction (principal); K21.9 Gastro-esophageal reflux disease without esophagitis; K76.0 Fatty (change of) liver, not elsewhere classified; K74.00 Hepatic fibrosis, unspecified; J45.909 Unspecified asthma, uncomplicated; E66.9 Obesity, unspecified; Z68.27 Body mass index [BMI] 27.0-27.9, adult; Z98.84 Bariatric surgery status; Q60.2 Renal agenesis, unspecified; D72.10 Eosinophilia, unspecified; R91.8 Other nonspecific abnormal finding of lung field; R00.0 Tachycardia, unspecified; Z79.51 Long term (current) use of inhaled steroids; Z79.899 Other long term (current) drug therapy; Z88.0 Allergy status to penicillin; Z88.8 Allergy status to other drugs, medicaments and biological substances; Z20.822 Contact with and (suspected) exposure to COVID-19; Z87.891 Personal history of nicotine dependence
CPT/HCPCS: 47562; 86850; 86900; 86901; 87635; 88304; C9088; J0131; J1100; J1170; J1956; J2250; J2405; J2795; J3010

== ENCOUNTER 2022-06-24 14:54 | Outpatient (REF) | payer MEDICAID, SELFPAY ==
[2022-06-24 17:06] LABS: Appearance Urine Clear; Color Urine Yellow; Glucose Urine UA Negative (Negative); Leukocyte Esterase Urine Trace (Negative); Nitrite Urine Negative (Negative); Specific Gravity - Urine >= 1.030 (1.005-1.025); UMIC TRIGGER UACC YES; Urine Blood Negative (Negative); Urine Ketones Trace mg/dL (Negative); Urine Protein Trace mg/dL (Neg-Trace)
[2022-06-24 17:09] LABS: Bacteria Urine Trace (None Seen); Hyaline Casts Urine 0-2 /LPF (0-2); UACC Culture Trigger YES
== END 2022-06-24 14:55 | disposition home or self-care (01) ==
LOC: HO.LAB 14:54
PROVIDERS: Visit Provider Physician Assistant Surgical
DX: K80.20 Calculus of gallbladder without cholecystitis without obstruction (principal)
CPT/HCPCS: 81001; 81003; 86900; 86901; 87086

== ENCOUNTER 2022-10-28 11:40 | Outpatient (REF) | payer MEDICAID, SELFPAY | END 2022-10-28 11:41 | disposition home or self-care (01) | LOC: HO.MDS 11:40 | PROVIDERS: Visit Provider Hospitalist | DX: D80.1 Nonfamilial hypogammaglobulinemia (principal) | CPT/HCPCS: 96365; 96366; J1569 ==

== ENCOUNTER → 2022-11-20 14:58 | Outpatient (BNVA) | payer MEDICAID, SELFPAY | PROVIDERS: PCP Internal Medicine; Visit Provider Hospitalist | DX: J45.50 Severe persistent asthma, uncomplicated (principal); D80.1 Nonfamilial hypogammaglobulinemia; R91.8 Other nonspecific abnormal finding of lung field; R01.1 Cardiac murmur, unspecified; R00.2 Palpitations; Z79.899 Other long term (current) drug therapy | CPT/HCPCS: 99212 ==

== ENCOUNTER 2023-02-23 13:28 | Outpatient (AMB) | payer MEDICAID, SELFPAY ==
--- NOTE | 2023-02-23 14:12 | MHC.OFFVIS ---
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/ Palpitations, Cardiac murmur Intake Note: New patient c/o palpitations and heart cardiac murmur Cte Teacher Required: Yes Cte Teacher Name: Cristina davison [facility] Accompanied by: Daughter Allergies aspirin [ASPIRIN] Allergy (Severe, Verified 11/20/22 15:08) DUE TO KIDNEY FUNCTION (PT HAS 1 KIDNEY) NSAIDS (Non-Steroidal Anti-Inflamma [NSAIDS (NON-STEROIDAL ANTI-INFLAMMA] Allergy (Severe, Verified 11/20/22 15:08) KIDNEY FUNCTION Penicillins Allergy (Mild, Verified 11/20/22 15:08) Rash oranges Allergy (Severe, Uncoded 11/20/22 15:08) Itching on Skin strawberries Allergy (Severe, Uncoded 11/20/22 15:08) Itching on Mouth Medication List - Last Reconciled 02/23/23 by Jayden Schroeder MD albuterol sulfate 2.5 mg (3 mL) inhalation Q6H PRN 30 days albuterol sulfate 90 mcg/actuation 2 puffs inhalation Q6H PRN aripiprazole 5 mg PO DAILY azelastine 2 sprays intranasal BID 30 days cetirizine (Zyrtec) 10 mg PO DAILY PRN duloxetine 60 mg PO DAILY fluticasone furoate-vilanterol 200-25 mcg/dose (Breo Ellipta) 1 inh inhalation DAILY 30 days fsnrstlzuzv-zbgddagfk-gdcbrjbf 200-62.5-25 mcg (Trelegy Ellipta) 1 ea PO DAILY immun glob G(IgG)-gly-IgA ov50 10 % (Gammagard Liquid) 10 grams IV Q4W montelukast 10 mg PO BEDTIME nebulizers As directed umeclidinium 62.5 mcg/actuation (Incruse Ellipta) 1 inh inhalation DAILY 30 days HPI HPI Comments History of Present Illness Details Brunilda was referred here for management of palpitations. She is accompanied by her daughter and her friend. History was obtained with help of water quality control engineer. Despite the water quality control engineer she is not a very good historian. Patient says for the last 3-4 months she has been having increasing symptoms of palpitations. Palpitations are random and not associated any aggravating factors. She describes this initially as rapid heart rate but subsequently on further description says she feels strong skipped heartbeats. She has associated shortness of breath visit. She is very bothered by the symptoms. Symptoms can sometimes happen frequently and sometimes not happen for few days. There is no clear pattern to it. She usually can relieve her symptoms by resting and taking deep breaths. She also complains of exertional shortness of breath. She denies any orthopnea, PND. No exertional chest pain. Denies any lightheadedness, syncope. There is no recent change in her overall health status or any significantly increased stress in her life. She denies any zchw-mhw-idifhlo medications. Denies any other stimulants. [facility] Medical History Adjustment disorder, unspecified Anxiety Asthma BMI 36.0-36.9,adult BMI 37.0-37.9, adult Body mass index (BMI) of 40.1 to 44.9 in adult Bronchitis Cholelithiasis Congenital absence of kidney Cough Dyspnea Eosinophilia GERD (gastroesophageal reflux disease) Hypersomnolence Liver fibrosis Morbid obesity Murmur Obesity Osteoarthritis Palpitations Pulmonary nodules Shortness of breath Shortness of breath Snoring Steatosis, liver Tachycardia Vitamin D deficiency Surgical History H/O gastric sleeve H/O tubal ligation Hx of wisdom tooth extraction Family History Mother Diabetes Family history of thyroid problem Father Emphysema lung High cholesterol Hypertension Sister High cholesterol Hypertension Brother No problems noted. Daughter No problems noted. Daughter No problems noted. 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 other at home: Yes (children age 15+16) Do you presently have visiting nurse or other home services: No Alcohol intake: current Alcohol intake frequency: does not drink Patient Tobacco Use Status: Former Tobacco user Quit Date: 2019 Tobacco use type: Cigarette Cigarettes Per Day: 3 service: No Current occupational status: unemployed Review of Systems Const Denies chills, Denies daytime sleepiness, Denies fatigue, Denies fever(s), Denies frequent falls, Denies poor appetite, Denies snoring, Denies stops breathing during sleep, Denies weakness, Denies weight gain and Denies weight loss Eyes Denies loss of vision ENT Denies dizziness and Denies hearing loss Card Denies chest pain, Denies claudication, Denies leg edema, Denies lightheadedness, Denies palpitations, Denies dyspnea, Denies dyspnea on exertion and Denies orthopnea Resp Denies cough, Denies excessive phlegm production, Denies dyspnea, Denies dyspnea on exertion, Denies snoring and Denies wheezing GI Denies abdominal pain, Denies hematochezia, Denies change in bowel habits, Denies nausea and Denies vomiting Denies urinary frequency and Denies dysuria Musc Denies arthralgias, Denies muscle weakness, Denies numbness and Denies other (frequent falls) Skin/Breast Denies nail changes and Denies rash Neuro Denies Abnormal speech present, Denies dizziness, Denies frequent falls, Denies loss of vision, Denies memory loss, Denies numbness and Denies weakness Psych Denies depression and Denies memory loss Endo Denies fatigue and Denies palpitations Rip/Lymph Reports easy bruising and Reports other (anemia) Aller/Immun Denies wheezing Physical Exam Vital Signs: Last Vital Signs Pulse 74 02/23/23 14:14 BP 124/76 02/23/23 14:14 BMI result Body Mass Index 28.1 Const General: cooperative, comfortable, no acute distress, alert, awake and anxious Nutritional Appearance: overweight Orientation/consciousness: patient oriented x3 Limitations: no limitations HEENT Head: Yes normocephalic and Yes atraumatic Neck Neck: Yes trachea midline, Yes supple and Yes no JVD Resp Effort & Inspection: normal respiratory effort Auscultation: clear to auscultation bilaterally Cardio Jugular venous distension: no JVD Palpation: normal PMI Rate: regular rate Rhythm: regular rhythm Heart sounds: S1 normal heart sound present, S2 normal heart sound present, no click, no gallops, no murmurs and no rubs GI Auscultation: normal bowel sounds Skin General skin exam: no rashes or lesions noted Neuro General: patient oriented x3 and no focal motor deficits Speech: No Abnormal speech present Extrem General: Yes no clubbing, cyanosis or edema Psych Affect: Anxious affect present Office Procedures EKG Details: EKG shows normal sinus rhythm normal EKG with normal axis and normal intervals with no pre-excitation [id number], Complete Assessment & Plan Assessment & Plan (1) Palpitations: Code(s): R00.2 - Palpitations Plan: Patient was significant symptoms related to a palpitation with recent onset. Clinically appears to be extra systoles such as PVCs or PACs. Less likely other arrhythmias such as SVT. Given random this of her symptoms she requires prolonged monitoring for 14 days Holter if her insurance company loss. Will also suggest echocardiogram given her symptoms of palpitation and symptoms exertional shortness of developed LV systolic and diastolic function. Check TSH and electrolytes. These tests will be performed in near future. Further treatment based on the findings. No pharmacotherapy is being recommended. Participate in stress mitigation strategies. Avoidance of stimulants such as caffeine alcohol was discussed. Will follow up in the clinic after above-mentioned test. Thank you for allowing me to partake in the care Coding Level of Care Code New Pt Level 4 (95913) Diagnoses Palpitations R00.2 CPT Codes EKG - CPT: 69635-Ersjfpjwygeebjbuq, Complete ([id number])
[2023-02-23 14:14] VITALS: BP 124/76; PULSE 74; BMI 28.1
== END 2023-02-23 14:50 | disposition home or self-care (01) ==
PROVIDERS: Visit Provider Internal Medicine Cardiovascular Disease
DX: R00.2 Palpitations (principal)
CPT/HCPCS: 93010; 99204

== ENCOUNTER → 2023-02-23 13:28 | Outpatient (BNVA) | payer MEDICAID, SELFPAY | PROVIDERS: Visit Provider Internal Medicine Cardiovascular Disease | DX: R00.2 Palpitations (principal) | CPT/HCPCS: 93005; 99202 ==

== ENCOUNTER 2023-03-01 17:47 | Outpatient (REF) | payer MEDICAID, SELFPAY | END 2023-03-01 17:48 | disposition home or self-care (01) | LOC: HO.HHCLNP 17:47 | PROVIDERS: Visit Provider Internal Medicine | DX: R39.9 Unspecified symptoms and signs involving the genitourinary system (principal) | CPT/HCPCS: 87086 ==

== ENCOUNTER 2023-03-03 08:16 | Outpatient (REF) | payer MEDICAID, SELFPAY | END 2023-03-03 08:17 | disposition home or self-care (01) | LOC: HO.MDS 08:16 | PROVIDERS: Visit Provider Hospitalist | DX: D80.1 Nonfamilial hypogammaglobulinemia (principal) | CPT/HCPCS: 96365; 96366; J1569 ==

== ENCOUNTER 2023-03-23 09:03 | Outpatient (AMB) | payer MEDICAID, SELFPAY ==
[2023-03-23 09:08] VITALS: BP 90/60; PULSE 72; BMI 29.9
--- NOTE | 2023-03-23 09:08 | A.OFFVIS_ITS ---
Intake Vital Signs 03/23/23 09:08 Height 5 ft 6 in Weight 185 lb 3.013 oz BMI 29.9 BP 90/60 Blood Pressure Location Lt brachial Position Sitting Pulse 72 Pulse Source Pulse Oximeter Intake Visit Reasons: 1 mth f/up Intake Note: 1 month f/u some palpitations and having low bp readings at home Equipment Cleaner Required: Yes Equipment Cleaner Name: Silvestre holbrook [id number] Allergies aspirin [ASPIRIN] Allergy (Severe, Verified 03/23/23 09:17) DUE TO KIDNEY FUNCTION (PT HAS 1 KIDNEY) NSAIDS (Non-Steroidal Anti-Inflamma [NSAIDS (NON-STEROIDAL ANTI-INFLAMMA] Allergy (Severe, Verified 03/23/23 09:17) KIDNEY FUNCTION Penicillins Allergy (Mild, Verified 03/23/23 09:17) Rash oranges Allergy (Severe, Uncoded 11/20/22 15:08) Itching on Skin strawberries Allergy (Severe, Uncoded 11/20/22 15:08) Itching on Mouth Medication List - Last Reconciled 03/23/23 by Simona Watkins SENIOR BACK END JAVA DEVELOPER-C albuterol sulfate 2.5 mg (3 mL) inhalation Q6H PRN 30 days albuterol sulfate 90 mcg/actuation 2 puffs inhalation Q6H PRN aripiprazole 5 mg PO DAILY cetirizine (Zyrtec) 10 mg PO DAILY PRN duloxetine 60 mg PO DAILY fluticasone furoate-vilanterol 200-25 mcg/dose (Breo Ellipta) 1 inh inhalation DAILY 30 days vqeskgubmht-qeqqlynyi-elogbgnp 200-62.5-25 mcg (Trelegy Ellipta) 1 ea PO DAILY immun glob G(IgG)-gly-IgA ov50 10 % (Gammagard Liquid) 10 grams IV Q4W montelukast 10 mg PO BEDTIME nebulizers As directed umeclidinium 62.5 mcg/actuation (Incruse Ellipta) 1 inh inhalation DAILY 30 days HPI 1 mth f/up HPI Details Brunilda is a 37 year old female with past medical history of mild obesity who is being evaluated for heart palpitations and presents for follow- up. Today she reports that she continues to have heart palpitations which come on suddenly and last only a few seconds. There is no set pattern to when this occurs. She does report having fatigue and weakness which she feels is a result of the palpitations. She has no dizziness, presyncope, syncope, falls. She did not obtain her cardiac testing as of yet as she said that she was not called. She does have back discomfort from surgery that she had last month. She is currently ambulating with a walker. She has no shortness of breath, PND, orthopnea or edema. No chest discomfort at rest or with activity. [facility] Medical History Adjustment disorder, unspecified Anxiety Asthma BMI 36.0-36.9,adult BMI 37.0-37.9, adult Body mass index (BMI) of 40.1 to 44.9 in adult Bronchitis Cholelithiasis Congenital absence of kidney Cough Dyspnea Eosinophilia GERD (gastroesophageal reflux disease) Hypersomnolence Liver fibrosis Morbid obesity Murmur Obesity Osteoarthritis Palpitations Pulmonary nodules Shortness of breath Shortness of breath Snoring Steatosis, liver Tachycardia Vitamin D deficiency Surgical History H/O gastric sleeve H/O tubal ligation Hx of wisdom tooth extraction Family History Mother Diabetes Family history of thyroid problem Father Emphysema lung High cholesterol Hypertension Sister High cholesterol Hypertension Brother No problems noted. Daughter No problems noted. Daughter No problems noted. 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 you a primary personal care home administrator to a significant other at home: Yes (children age 15+16) Do you presently have visiting nurse or other home services: No Alcohol intake: current Alcohol intake frequency: does not drink Patient Tobacco Use Status: Former Tobacco user Quit Date: 2019 Tobacco use type: Cigarette Cigarettes Per Day: 3 service: No Current occupational status: unemployed Review of Systems Const All systems reviewed & are unremarkable except as noted in HPI and below ENT Reports dizziness Card Details: Intermittent heart palpitations, rapid heartbeat Denies chest pain, Denies chest pain at rest, Denies chest pain with activity, Denies rapid heart rate, Denies pedal edema, Denies edema, Denies leg edema, Denies lightheadedness, Denies palpitations, Denies dyspnea, Denies dyspnea on exertion and Denies orthopnea Resp Denies cough, Denies dyspnea and Denies dyspnea on exertion GI Denies hematochezia and Denies change in stool character Musc Details: Back discomfort from recent surgery, ambulating with walker Reports abnormal gait, Reports limited range of motion, Reports muscle cramps, Denies muscle weakness, Denies numbness, Denies radiating pain into limb, Denies stiffness and Denies tingling Neuro Reports abnormal gait, Reports dizziness, Denies numbness and Denies tingling Endo Denies palpitations Physical Exam Vital Signs: Last Vital Signs Pulse 72 03/23/23 09:08 BP 90/60 03/23/23 09:08 BMI result Body Mass Index 29.9 Const General: cooperative, healthy appearing, comfortable and no acute distress Orientation/consciousness: patient oriented x3 Neck Neck: Yes normal visual inspection Resp Effort & Inspection: normal respiratory effort Auscultation: clear to auscultation bilaterally, no crackles, no rales, no rho nchi and no wheezes Cardio Jugular venous distension: no JVD Rate: regular rate Rhythm: regular rhythm Heart sounds: S1 normal heart sound present, S2 normal heart sound present, no gallops, no murmurs and no rubs Neuro General: patient oriented x3 Extrem General: Yes normal to inspection Psych Appearance: grossly normal Mental Status: mental status grossly normal Speech and movement: Normal speech and movement present Assessment & Plan Assessment & Plan (1) Palpitations: Code(s): R00.2 - Palpitations Plan: Recent cardiology visit for heart palpitations. She describes them as being sudden, rapid, brief. Clinically thought to be extrasystoles such as PACs or PVCs. No sustained rapid rate so less likely to be SVT. Echocardiogram and Holter monitor were ordered however not completed as of yet. Patient has appointment tomorrow for the echo and I have 14 day Holter applied. Instructed to obtain lab work that day. Emergency care if ever needed for concerning palpitations. Plan to call her with test results. Office visit in 6 months, sooner if needed - can be changed to as needed if all her testing is normal. Coding Level of Care Code Est Pt Level 2 (49851) Diagnoses Palpitations R00.2 Time Spent (min) 14 Comment Chart review, documentation, interview, assess
== END 2023-03-23 09:35 | disposition home or self-care (01) ==
PROVIDERS: PCP Internal Medicine; Referring Provider Internal Medicine; Visit Provider Nurse Practitioner Family
DX: R00.2 Palpitations (principal)
CPT/HCPCS: 99212

== ENCOUNTER → 2023-03-23 09:03 | Outpatient (BNVA) | payer MEDICAID, SELFPAY | PROVIDERS: PCP Internal Medicine; Referring Provider Internal Medicine; Visit Provider Nurse Practitioner Family | DX: R00.2 Palpitations (principal) | CPT/HCPCS: 99212 ==

== ENCOUNTER → 2023-03-24 10:27 | Outpatient (REF) | payer MEDICAID, SELFPAY ==
--- NOTE | 2023-03-24 10:43 | HM_ITS ---
Conclusion: 1. Patient was monitored for total period of 2 days 2. Baseline was normal sinus rhythm with average heart rate of 98 beats per minute 3. Frequent sinus tachycardia noted with total burden of 38% 4. Very rare ectopy noted 5. No significant pauses noted greater than 2.5 seconds 6. No patient reported events MTDD
--- NOTE | 2023-03-24 11:06 | CA_ITS ---
Transthoracic Echocardiogram Patient (Last, First, Middle): Brunilda Crespo, Gender: Female Date of : 1985 Age: 37 Procedure Date: 03/24/2023 Procedure Type: Transthoracic Echocardiogram Location: OP Height: 167.64 cm Weight: 79.38 kg BSA: 1.89 m2 Heart Rate: 70 bpm BP: 105 / 75 mmHg Assembler Musical Instruments: BLADE Referring MD: Jayden Schroeder MD Clipper Machine Operator: Jayden Schroeder MD Symptoms: R00.2 - Palpitations Study Quality: Fair ECG Rhythm: Sinus Conclusions: - Essentially normal study Findings Left Ventricle Normal left ventricular size, thickness, and systolic function. The visually estimated ejection fraction is between 55-60%. Spectral Doppler is indicative of a normal filling pattern. Right Ventricle Normal right ventricular cavity size and systolic function. Atria Both atria are normal in size. Interatrial shunt cannot be excluded. Aortic Valve The aortic valve structure and function is likely normal. There is no aortic valve stenosis. There is no aortic valve regurgitation. Mitral Valve Likely normal mitral valve structure and function. There is trace mitral valve regurgitation. There is no mitral valve stenosis. Pulmonic Valve The pulmonic valve was not well visualized. Tricuspid Valve Likely normal tricuspid valve structure and function. There is trace tricuspid valve regurgitation. The right ventricular systolic pressure is normal. Normal right atrial pressure. There is no evidence of pulmonary hypertension. Great Vessels All visible segments of the aorta are normal in size. The pulmonary artery was not well visualized. Venous The inferior vena cava is normal in size and collapses greater than 50% with inspiration. Pericardium/Pleural There is no evidence of pericardial effusion. Prior Study Comparison No prior study available for comparison. Measurements 2D Linear Measurements IVSd: 1.07 0.6-0.9/0.6-1.0 cm LVIDd: 4.38 3.9-5.3/4.2-5.9 cm LVIDd Index: 2.32 2.4-3.2/2.2-3.1 cm/m2 LVIDs: 3.06 2.0-3.6 cm LVPWd: 1.02 0.7-1.1 cm LA Diam: 3.00 2.7-3.8/3.0-4.0 cm LAIDs Index: 1.59 1.5-2.3 cm/m2 LV Mass: 194.28 67-162/88-224 g LV Mass Index: 102.80 43-95/49-115 g/m2 LVOT Diam: 1.80 3.0+(-)1.3 cm 2D Systolic Function EF 4C: 57.10 >55% EF 2C: 60.30 >55% EF BiP: 58.90 >55% Mitral Valve MV Pk E: 1.04 MV PK A: 0.79 MV Decel Time: 162.00 E/A: 1.30 E'Lateral: 9.36 E'Medial: 9.03 E/E' Med: 11.50 E/E' Lat: 11.10 PHT: 47.00 MVA PHT: 4.68 Decel [place]: 6.41 Aortic Valve AoV Pk Neto: 1.13 AoV Mn Neto: 0.88 AoV VTI: 0.24 AoV Pk Grad: 5.00 Aov Mn Grad: 3.00 MINAL Cont.VTI: 2.36 LVOT LVOT Pk Neto: 1.09 LVOT Mn Neto: 0.76 LVOT VTI: 0.23 LVOT Pk Grad: 5.00 LVOT Mn Grad: 3.00 LVOT Diam: 1.80 LVOT Area: 2.54 Diastolic Function MV Pk E: 1.04 MV Pk A: 0.79 E/A: 1.30 E'Medial: 9.03 E/E' Med: 11.50 E' Laterial: 9.36 E/E' Lat: 11.10 Right Ventricle TAPSE (mm): 17.30 TVS' Neto: 10.30 Tricuspid Valve TR Pk Neto: 2.06 TR Pk Grad: 17.00 RA Press: 3.00 RVSP: 20.00 Great Vessels Aorta Sinus of Valsalva: 3.40 2.0-3.5 cm Ao Asc: 3.40 2.1-3.4 cm Pulmonary Valve PV Pk Neto: 0.90 Peak PV Grad: 3.00 Updated in Other Vendor System with Status of Final Jayden Schroeder MD electronically signed on 03/24/2023 2:20:13 PM with status of Final
== END ==
LOC: HO.CARD 10:27
PROVIDERS: PCP Internal Medicine; Visit Provider Internal Medicine Cardiovascular Disease
DX: R00.2 Palpitations (principal)
CPT/HCPCS: 93225; 93306

== ENCOUNTER → 2023-03-24 11:06 | Outpatient (BNV) | payer MEDICAID, SELFPAY | PROVIDERS: PCP Internal Medicine; Visit Provider Internal Medicine Cardiovascular Disease | DX: R00.0 Tachycardia, unspecified (principal) | CPT/HCPCS: 93227; 93306 ==

== ENCOUNTER 2023-03-26 11:00 | Outpatient (REF) | payer MEDICAID, SELFPAY ==
[2023-03-26 13:21] LABS: Anion Gap 12 (12-20); Blood Urea Nitrogen 15 mg/dL (9-16); Calcium 9.8 mg/dL (8.4-10.2); Carbon Dioxide 28 mmol/L (22-29); Chloride 104 mmol/L (96-108); Estimated Glomerular Filt Rate > 60; Glucose Random 77 mg/dL (60-115); Magnesium 2.2 mg/dL (1.6-2.6); Potassium 4.1 mmol/L (3.3-5.1); Sodium 140 mmol/L (135-145)
[2023-03-26 13:40] LABS: TSH reflex Free T4 0.98 uIU/mL (0.32-4.0)
== END 2023-03-26 11:01 | disposition home or self-care (01) ==
LOC: HO.LAB 11:00
PROVIDERS: PCP Internal Medicine; Visit Provider Internal Medicine Cardiovascular Disease
DX: R00.2 Palpitations (principal)
CPT/HCPCS: 36415; 80048; 83735; 84443

== ENCOUNTER 2023-04-15 10:34 | Outpatient (REF) | payer MEDICAID, SELFPAY | END 2023-04-15 10:35 | disposition home or self-care (01) | LOC: HO.MDS 10:34 | PROVIDERS: Visit Provider Hospitalist | DX: D80.1 Nonfamilial hypogammaglobulinemia (principal) | CPT/HCPCS: 96365; 96366; J1569 ==

== ENCOUNTER 2023-04-29 09:39 | Outpatient (REF) | payer MEDICAID, SELFPAY ==
--- NOTE | ~2023-04-29 | CT_ITS ---
EXAMINATION: CT CHEST WITHOUT CONTRAST CLINICAL INFORMATION: Follow-up pulmonary nodules. COMPARISON: CT chest dated 03/10/2022. TECHNIQUE: Multidetector volumetric CT imaging of the chest was done. Axial MIP volume rendering provided. Sagittal and coronal reformatted images were obtained. This CT examination was performed using dose optimization techniques as appropriate, variously including the following: *Automated exposure control *Adjustment of mA and/or kV according to patient size (this includes techniques or standardized protocols for targeted exams where dose is matched to indication/reason for exam; i.e. extremities or head) *Use of iterative reconstruction technique DLP: 143 mGy-cm FINDINGS: CONTRACT ASSISTANT: The lungs are symmetrically well-expanded and grossly clear. LUNGS: There are benign, stable 2 mm and 3 mm pleural-based lymph nodes applied to the anterior right pleural surface (5:190 and 282). A 6 mm benign fissural lymph node is redemonstrated applied to the upper medial left major fissure (5:139). No new nodule, mass, infiltrate or groundglass opacity is seen. There is no generalized increase in peripheral interlobular septal markings. No significant bleb or bullous formation is seen. There is no small airway thickening. The central airways appear patent. MEDIASTINUM: The mediastinum is normal. CORONARY ARTERY CALCIFICATION: None visualized on this study. PLEURA: There is no pleural effusion. No pleural mass or thickening. AXILLA: No lymphadenopathy. UPPER ABDOMEN: The gallbladder is surgically absent. The adrenal glands are unremarkable. Gastroesophageal surgical clips are noted. Please correlate with patient's past surgical history. OSSEOUS STRUCTURES: Unremarkable. CT/CT chest wo IV con IMPRESSION: There are benign, stable bilateral pleural-based lymph nodes. No parenchymal nodule, mass, infiltrate or groundglass opacity is seen. There is no thoracic lymphadenopathy or pleural effusion. No aggressive osseous lesion is seen. Fleischner guidelines were followed.
== END 2023-04-29 09:40 | disposition home or self-care (01) ==
LOC: HO.CT 09:39
PROVIDERS: PCP Internal Medicine; Visit Provider Hospitalist
DX: R91.8 Other nonspecific abnormal finding of lung field (principal)
CPT/HCPCS: 71250

== ENCOUNTER 2023-04-30 10:26 | Outpatient (AMB) | payer MEDICAID, SELFPAY ==
[2023-04-30 10:31] VITALS: BP 120/60; PULSE 73; O2SAT 100; BMI 29.9
--- NOTE | 2023-04-30 10:31 | MHC.OFFVIS ---
Intake Vital Signs 04/30/23 10:31 Height 5 ft 6 in Weight 185 lb 3.013 oz BMI 29.9 BP 120/60 Blood Pressure Location Lt brachial Position Sitting Pulse 73 Pulse Source Pulse Oximeter Pulse Oximetry (%) 100 Oxygen Delivery Method Room Air Intake Visit Reasons: asthma Textile Knitter Required: No Allergies aspirin [ASPIRIN] Allergy (Severe, Verified 04/30/23 10:34) DUE TO KIDNEY FUNCTION (PT HAS 1 KIDNEY) NSAIDS (Non-Steroidal Anti-Inflamma [NSAIDS (NON-STEROIDAL ANTI-INFLAMMA] Allergy (Severe, Verified 04/30/23 10:34) KIDNEY FUNCTION Penicillins Allergy (Mild, Verified 04/30/23 10:34) Rash oranges Allergy (Severe, Uncoded 04/30/23 10:34) Itching on Skin strawberries Allergy (Severe, Uncoded 04/30/23 10:34) Itching on Mouth HPI HPI Comments History of Present Illness Details The patient is a 37-year-old woman with a known history of asthma who apparently was in her usual state health until several months ago. Patient developed respiratory illness resulting in significant chest congestion and cough. Moderate severity. The patient did have a urgent care evaluation. She was found to have significant eosinophilia on her blood work. The patient was treated with prednisone with good response and she was also given respiratory inhalers. However her symptoms will return when she stops the prednisone. The family has been very supportive. She has been using a nebulizer from a the family members in this has been partially helpful. She has been using a couple times a day. In addition to that she started using Advair a daily basis with only partial resolution of the symptoms as well. Unfortunate she had to go back to the ER because her symptoms were no better recently she was given another course of prednisone. Currently she is tapering down by 30 mg at this time. One in the prednisone she does feel improved. We did review her blood work again demonstrating significant eosinophilia suggesting eosinophilic asthma. She has not had any blood work for allergies as of yet. Will make sure that she has a D-dimer to make sure that she does not have any risk for thromboembolic disease. The patient also needs to undergo a chest x-ray and pulmonary function studies when she is able. 02/26/2022 the patient is here for a pulmonary follow-up visit. She continues to have productive cough and shortness of breath. Moderate severity. She did respond partially to the azithromycin 3 times a week. We did review her blood work again demonstrating low IgG levels. In view of her recurrent infections and repeat frequent antibiotics I do believe that a trial of IVIG is warranted. the patient did have a chest x-ray that was not helpful. In view of her ongoing symptoms I will request a CT scan of the chest. If the CT scans abnormal or if the patient is not any better then we can plan for bronchoscopy. The patient also continues on Fasenra. She has continued to be symptomatic even the Fasenra. Therefore, switching her to a different agent may be warranted. At this time will continue Fasenra while we address her hypogammaglobulinemia issue. They will address the Fasenra. 05/07/2022 the patient is here for a pulmonary follow-up visit. The patient recently started the IVIG infusions. It is too early to tell to see if the going to be effective. She did stop the Fasenra. The biologic therapy was not helpful in improving her respiratory symptoms the patient also continues on the azithromycin 3 times a week. Recently she had about of abdominal pain went to the ER with hematuria. She was given a course antibiotics but she never taken. She felt like she passed the stone. She did have a CT scan of the abdomen and pelvis during that evaluation and demonstrating no kidney stones so that she does have a gallbladder stone. the patient is also having significant back pain. She is planned to undergo back surgery. Currently from a respiratory status the patient is doing better. She did undergo a spirometry in the office demonstrating no obstructive ventilatory defects with normal lung capacity which is reassuring. At this point the patient is medically optimize a respiratory status to undergo anesthesia and surgery. The patient does have mild risk for perioperative pulmonary complications which include atelectasis, hypoxia, bronchospasms, pneumonia and prolonged mechanical ventilation. Also to note we did review her recent CT scan of the chest demonstrating only some pulmonary nodules which were subcentimeter in size. Will go ahead and plan to repeat the CT scan in a year's time. 11/20/2022 the patient is here for pulmonary follow-up visit. The patient overall is doing fair. She is not recovering after having a cholecystectomy. Apparently surgery went well but now she is very nauseous and she cannot tolerate anything by mouth. She is also feeling very dizzy at times. She did have blood work recently demonstrating severe decreased vitamin-C levels and she is going to start taking supplementation. In the meantime she continues with the IVIG infusions. Will go ahead and check her IgG trough levels. The patient is also experiencing some episodes of palpitations. To make sure that she is not having any cardiac arrhythmias will have her get an EKG and also stop the erythromycin for now. In view of her ongoing symptoms dizziness palpitations and history of sinus arrhythmia the patient will benefit from a Cardiology evaluation for evaluations of ongoing cardiac arrhythmias that could potentially explain her symptoms. On examination she also has a murmur. It may be a flow murmur but is still a new murmur and that will be helpful for Cardiology to follow up with as well. 04/30/2023 the patient is here for pulmonary follow-up visit. The patient is doing well. She is tolerating the IVIG infusions okay. She is still getting sick at times. Usually in the morning she has increased chest congestion with mucus production. Usually it after about noontime her symptoms do improve. She is already on Trelegy inhaler. She also has a nebulizer machine. She is getting the IVIG infusions. Will go ahead and check her levels to make sure she is getting enough medicine. In the meantime she did follow-up with Cardiology. Hold the demonstrated some sinus tachycardia. Her echocardiogram was reassuring. From a pulmonary standpoint will continue with current therapy. Will go ahead and request blood work and also treat her with doxycycline for the chronic bronchitis. If her symptoms persist she may be a good candidate for Daliresp. REPLACED BY [facility] Medical History Adjustment disorder, unspecified Anxiety Asthma BMI 36.0-36.9,adult BMI 37.0-37.9, adult Body mass index (BMI) of 40.1 to 44.9 in adult Bronchitis Cholelithiasis Congenital absence of kidney Cough Dyspnea Eosinophilia GERD (gastroesophageal reflux disease) Hypersomnolence Liver fibrosis Morbid obesity Murmur Obesity Osteoarthritis Palpitations Pulmonary nodules Shortness of breath Shortness of breath Snoring Steatosis, liver Tachycardia Vitamin D deficiency Surgical History H/O gastric sleeve H/O tubal ligation Hx of wisdom tooth extraction Family History Mother Diabetes Family history of thyroid problem Father Emphysema lung High cholesterol Hypertension Sister High cholesterol Hypertension Brother No problems noted. Daughter No problems noted. Daughter No problems noted. 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 you a primary day care aide to a significant other at home: Yes (children age 15+16) Do you presently have visiting nurse or other home services: No Alcohol intake: current Alcohol intake frequency: does not drink Patient Tobacco Use Status: Former Tobacco user Quit Date: 2019 Tobacco use type: Cigarette Cigarettes Per Day: 3 service: No Current occupational status: unemployed Review of Systems Const Reports headache(s), Denies night sweats and Reports weight loss ENT Denies change in voice, Reports dizziness, Reports headache(s), Denies lip swelling, Denies mouth pain, Reports nasal congestion, Reports nasal discharge, Reports post nasal drip, Reports sinus pressure and Denies tongue swelling Card Denies chest pain and Reports dyspnea on exertion Resp Denies chest congestion, Reports cough, Reports dyspnea on exertion and Reports wheezing GI Reports abdominal pain Musc Reports as per HPI and Reports back pain Neuro Denies Neuro-related abnormal movements, Reports dizziness and Reports headache(s) Psych Denies no additional complaints Rip/Lymph Denies easy bleeding and Denies lymphadenopathy Aller/Immun Denies lip swelling, Denies tongue swelling and Reports wheezing Physical Exam Vital Signs: Last Vital Signs Pulse 73 04/30/23 10:31 BP 120/60 04/30/23 10:31 Pulse Ox 100 04/30/23 10:31 Oxygen Delivery Method Room Air 04/30/23 10:31 BMI result Body Mass Index 29.9 Const General: alert Neck Neck: Yes normal visual inspection, Yes full ROM and Yes no lymphadenopathy Chest Chest palpation & inspection: normal inspection of the chest Resp Auscultation: no rales, no rhonchi, no wheezes and diminished lung sounds Cardio Rate: regular rate Rhythm: regular rhythm Heart sounds: S1 normal heart sound present, S2 normal heart sound present and Murmur heart sound present GI Palpation (GI): Soft to palpation and nontender Auscultation: normal bowel sounds Skin General skin exam: rashes and/or lesions noted Assessment & Plan Assessment & Plan (1) Asthma: Code(s): J45.909 - Unspecified asthma, uncomplicated Qualifiers: Asthma complication type: uncomplicated Asthma persistence: persistent Asthma severity: severe Qualified Code(s): J45.50 - Severe persistent asthma, uncomplicated (2) Hypogammaglobulinemia: Code(s): D80.1 - Nonfamilial hypogammaglobulinemia (3) Pulmonary nodules: Code(s): R91.8 - Other nonspecific abnormal finding of lung field (4) Palpitations: Code(s): R00.2 - Palpitations Plan continue Trelegy 200mcg EL as needed stop Azithromycin MWF continue IVIG 40 gm Q4 weeks requesting bloodwork and IgG through next week Nasal therapy: fluticasone and astelin nebulizer therapy BID and as needed continue singulair F/U 6 months Orders: Orders Basic Metabolic Panel 04/30/23 D80.1 - Nonfamilial hypogammaglobulinemia Erythrocyte Sedimentation Rate 04/30/23 D80.1 - Nonfamilial hypogammaglobulinemia Immunoglobulin G Subclasses 04/30/23 D80.1 - Nonfamilial hypogammaglobulinemia Sputum Cult + Gram stain 04/30/23 J45.909 - Unspecified asthma, uncomplicated Complete Blood Count Auto Diff 04/30/23 D80.1 - Nonfamilial hypogammaglobulinemia Medications: New doxycycline monohydrate 100 mg PO BID 14 days 28 tabs 0RF Coding Level of Care Code Est Pt Level 4 (21815) Diagnoses Severe persistent asthma without complication J45.50 Asthma complication type: uncomplicated Asthma persistence: persistent Asthma severity: severe Hypogammaglobulinemia D80.1 Pulmonary nodules R91.8 Palpitations R00.2 Time Spent (min) 18
== END 2023-04-30 10:58 | disposition home or self-care (01) ==
PROVIDERS: PCP Internal Medicine; Visit Provider Hospitalist
DX: J45.50 Severe persistent asthma, uncomplicated (principal); D80.1 Nonfamilial hypogammaglobulinemia; R91.8 Other nonspecific abnormal finding of lung field; R00.2 Palpitations
CPT/HCPCS: 99214

== ENCOUNTER → 2023-04-30 10:26 | Outpatient (BNVA) | payer MEDICAID, SELFPAY | PROVIDERS: PCP Internal Medicine; Visit Provider Hospitalist | DX: J45.50 Severe persistent asthma, uncomplicated (principal); D80.1 Nonfamilial hypogammaglobulinemia; R91.8 Other nonspecific abnormal finding of lung field; R00.2 Palpitations | CPT/HCPCS: 99212 ==

== ENCOUNTER 2023-05-11 11:07 | Outpatient (REF) | payer MEDICAID, SELFPAY ==
[2023-05-11 11:27] LABS: MANUAL DIFF FLAG NO
[2023-05-11 11:49] LABS: Basophils Percent Auto 0.6 % (0-2); Eosinophils Absolute Auto 0.3 X10*3/uL (0.0-0.4); Hematocrit 40.4 % (37.0-47.0); Hemoglobin 13.2 g/dl (12.0-16.0); Imm Gran Abs Auto 0.01 X10*3/uL (0.00-0.03); Imm Gran Pct Auto 0.1 % (0.0-0.4); Lymphocytes Absolute Auto 2.1 X10*3/uL (1.2-4.9); Lymphocytes Percent Auto 30.1 % (20-40); Mean Corpuscular HGB Conc 32.7 g/dl (31.0-35.0); Mean Corpuscular Hemoglobin 29.9 pg (27.0-33.0); Mean Corpuscular Volume 91.4 fL (80.0-98.0); Mean Platelet Volume 10.3 fL (9.4-12.3); Monocytes Absolute Auto 0.6 X10*3/uL (0.1-1.2); Monocytes Percent Auto 8.1 % (2-11); Neutrophils Percent Auto 57.1 % (45-73); Platelet Count 236 X10*3/uL (160-400); Red Blood Count 4.42 X10*6/uL (4.20-5.50); Red Cell Distribution Width 13.2 % (11.0-16.0); White Blood Count 6.9 X10*3/uL (4.8-10.8)
[2023-05-11 12:29] LABS: Erythrocyte Sedimentation Rate 3 MM/HR (0-20)
[2023-05-11 13:02] LABS: Anion Gap 15 (12-20); Blood Urea Nitrogen 10 mg/dL (9-16); Calcium 9.3 mg/dL (8.4-10.2); Carbon Dioxide 25 mmol/L (22-29); Chloride 103 mmol/L (96-108); Estimated Glomerular Filt Rate > 60; Glucose Random 78 mg/dL (60-115); Potassium 4.4 mmol/L (3.3-5.1); Sodium 139 mmol/L (135-145)
[2023-05-11 13:22] LABS: TSH reflex Free T4 0.65 uIU/mL (0.32-4.0)
[2023-05-13 16:09] LABS: Immunoglobulin G Subclass 1 406 mg/dL (382-929); Immunoglobulin G Subclass 2 436 mg/dL (241-700); Immunoglobulin G Subclass 3 37 mg/dL (22-178); Immunoglobulin G Subclass 4 13.2 mg/dL (4-86); Immunoglobulin G Total 825 mg/dL (600-1640)
== END 2023-05-11 11:08 | disposition home or self-care (01) ==
LOC: HO.LAB 11:07
PROVIDERS: PCP Internal Medicine; Visit Provider Hospitalist
DX: D80.1 Nonfamilial hypogammaglobulinemia (principal)
CPT/HCPCS: 36415; 80048; 82784; 84443; 85025; 85652

== ENCOUNTER 2023-05-13 08:04 | Outpatient (REF) | payer MEDICAID, SELFPAY | END 2023-05-13 08:05 | disposition home or self-care (01) | LOC: HO.MDS 08:04 | PROVIDERS: Visit Provider Hospitalist | DX: D80.1 Nonfamilial hypogammaglobulinemia (principal) | CPT/HCPCS: 96365; 96366; J1569 ==

== ENCOUNTER 2023-06-23 11:18 | Outpatient (REF) | payer MEDICAID, SELFPAY | END 2023-06-23 11:19 | disposition home or self-care (01) | LOC: HO.MDS 11:18 | PROVIDERS: Visit Provider Hospitalist | DX: D80.1 Nonfamilial hypogammaglobulinemia (principal) | CPT/HCPCS: 96365; 96366; J1569 ==

== ENCOUNTER 2023-10-29 10:19 | Outpatient (AMB) | payer MEDICARE, MEDICAID, SELFPAY ==
[2023-10-29 10:36] VITALS: PULSE 77; O2SAT 96; BMI 29.0
--- NOTE | 2023-10-29 10:36 | MHC.OFFVIS ---
Intake Vital Signs 10/29/23 10:36 Height 5 ft 6 in Weight 180 lb BMI 29.0 Pulse 77 Pulse Source Pulse Oximeter Pulse Oximetry (%) 96 Oxygen Delivery Method Room Air Intake Visit Reasons: asthma [employer] Required: No Allergies aspirin [ASPIRIN] Allergy (Severe, Verified 10/29/23 10:38) DUE TO KIDNEY FUNCTION (PT HAS 1 KIDNEY) NSAIDS (Non-Steroidal Anti-Inflamma [NSAIDS (NON-STEROIDAL ANTI-INFLAMMA] Allergy (Severe, Verified 10/29/23 10:38) KIDNEY FUNCTION Penicillins Allergy (Mild, Verified 10/29/23 10:38) Rash oranges Allergy (Severe, Uncoded 10/29/23 10:38) Itching on Skin strawberries Allergy (Severe, Uncoded 10/29/23 10:38) Itching on Mouth HPI HPI Comments History of Present Illness Details The patient is a 38-year-old woman with a known history of asthma who apparently was in her usual state health until several months ago. Patient developed respiratory illness resulting in significant chest congestion and cough. Moderate severity. The patient did have a urgent care evaluation. She was found to have significant eosinophilia on her blood work. The patient was treated with prednisone with good response and she was also given respiratory inhalers. However her symptoms will return when she stops the prednisone. The family has been very supportive. She has been using a nebulizer from a the family members in this has been partially helpful. She has been using a couple times a day. In addition to that she started using Advair a daily basis with only partial resolution of the symptoms as well. Unfortunate she had to go back to the ER because her symptoms were no better recently she was given another course of prednisone. Currently she is tapering down by 30 mg at this time. One in the prednisone she does feel improved. We did review her blood work again demonstrating significant eosinophilia suggesting eosinophilic asthma. She has not had any blood work for allergies as of yet. Will make sure that she has a D-dimer to make sure that she does not have any risk for thromboembolic disease. The patient also needs to undergo a chest x-ray and pulmonary function studies when she is able. 02/26/2022 the patient is here for a pulmonary follow-up visit. She continues to have productive cough and shortness of breath. Moderate severity. She did respond partially to the azithromycin 3 times a week. We did review her blood work again demonstrating low IgG levels. In view of her recurrent infections and repeat frequent antibiotics I do believe that a trial of IVIG is warranted. the patient did have a chest x-ray that was not helpful. In view of her ongoing symptoms I will request a CT scan of the chest. If the CT scans abnormal or if the patient is not any better then we can plan for bronchoscopy. The patient also continues on Fasenra. She has continued to be symptomatic even the Fasenra. Therefore, switching her to a different agent may be warranted. At this time will continue Fasenra while we address her hypogammaglobulinemia issue. They will address the Fasenra. 05/07/2022 the patient is here for a pulmonary follow-up visit. The patient recently started the IVIG infusions. It is too early to tell to see if the going to be effective. She did stop the Fasenra. The biologic therapy was not helpful in improving her respiratory symptoms the patient also continues on the azithromycin 3 times a week. Recently she had about of abdominal pain went to the ER with hematuria. She was given a course antibiotics but she never taken. She felt like she passed the stone. She did have a CT scan of the abdomen and pelvis during that evaluation and demonstrating no kidney stones so that she does have a gallbladder stone. the patient is also having significant back pain. She is planned to undergo back surgery. Currently from a respiratory status the patient is doing better. She did undergo a spirometry in the office demonstrating no obstructive ventilatory defects with normal lung capacity which is reassuring. At this point the patient is medically optimize a respiratory status to undergo anesthesia and surgery. The patient does have mild risk for perioperative pulmonary complications which include atelectasis, hypoxia, bronchospasms, pneumonia and prolonged mechanical ventilation. Also to note we did review her recent CT scan of the chest demonstrating only some pulmonary nodules which were subcentimeter in size. Will go ahead and plan to repeat the CT scan in a year's time. 11/20/2022 the patient is here for pulmonary follow-up visit. The patient overall is doing fair. She is not recovering after having a cholecystectomy. Apparently surgery went well but now she is very nauseous and she cannot tolerate anything by mouth. She is also feeling very dizzy at times. She did have blood work recently demonstrating severe decreased vitamin-C levels and she is going to start taking supplementation. In the meantime she continues with the IVIG infusions. Will go ahead and check her IgG trough levels. The patient is also experiencing some episodes of palpitations. To make sure that she is not having any cardiac arrhythmias will have her get an EKG and also stop the erythromycin for now. In view of her ongoing symptoms dizziness palpitations and history of sinus arrhythmia the patient will benefit from a Cardiology evaluation for evaluations of ongoing cardiac arrhythmias that could potentially explain her symptoms. On examination she also has a murmur. It may be a flow murmur but is still a new murmur and that will be helpful for Cardiology to follow up with as well. 04/30/2023 the patient is here for pulmonary follow-up visit. The patient is doing well. She is tolerating the IVIG infusions okay. She is still getting sick at times. Usually in the morning she has increased chest congestion with mucus production. Usually it after about noontime her symptoms do improve. She is already on Trelegy inhaler. She also has a nebulizer machine. She is getting the IVIG infusions. Will go ahead and check her levels to make sure she is getting enough medicine. In the meantime she did follow-up with Cardiology. Hold the demonstrated some sinus tachycardia. Her echocardiogram was reassuring. From a pulmonary standpoint will continue with current therapy. Will go ahead and request blood work and also treat her with doxycycline for the chronic bronchitis. If her symptoms persist she may be a good candidate for Daliresp. 10/29/2023 the patient is here for a pulmonary follow-up visit. She has not feeling well today. She has been sick now for the last couple months she states. She has had a productive cough with yellow phlegm. Her cough now is causing some chest discomfort because of chronicity. She denies fevers or chills. She is also having some shortness breath chest tightness and some wheezing. She had been on azithromycin 3 times a week and she felt that that was helping her. But then she stopped it. She wonders if she should go back on that medicine. In the meantime she continues to get her IVIG infusions. The last time we checked her levels she was with a normal. Therefore is likely that it is still effective for. Will go ahead and recheck her throughout this time. Will also have her get additional blood work as well. The patient will start antibiotics to treat her for lower respiratory infection. The patient is no better she will provide us with a sputum culture. She also can provide him with a chest x-ray. Once she completes the antibiotics will consider starting her back on the azithromycin 3 times a week. [facility] Medical History Adjustment disorder, unspecified Anxiety Asthma BMI 36.0-36.9,adult BMI 37.0-37.9, adult Body mass index (BMI) of 40.1 to 44.9 in adult Bronchitis Cholelithiasis Congenital absence of kidney Cough Dyspnea Eosinophilia GERD (gastroesophageal reflux disease) Hypersomnolence Liver fibrosis Morbid obesity Murmur Obesity Osteoarthritis Palpitations Pulmonary nodules Shortness of breath Shortness of breath Snoring Steatosis, liver Tachycardia Vitamin D deficiency Surgical History H/O gastric sleeve H/O tubal ligation Hx of wisdom tooth extraction Family History Mother Diabetes Family history of thyroid problem Father Emphysema lung High cholesterol Hypertension Sister High cholesterol Hypertension Brother No problems noted. Daughter No problems noted. Daughter No problems noted. 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) Do you presently have visiting nurse or other home services: No Alcohol intake: current Alcohol intake frequency: does not drink Patient Tobacco Use Status: Former Tobacco user Quit Date: 2019 Tobacco use type: Cigarette Cigarettes Per Day: 3 service: No Current occupational status: unemployed Review of Systems Const Reports headache(s), Denies night sweats and Reports weight loss ENT Denies change in voice, Reports dizziness, Reports headache(s), Denies lip swelling, Denies mouth pain, Reports nasal congestion, Reports nasal discharge, Reports post nasal drip, Reports sinus pressure and Denies tongue swelling Card Denies chest pain and Reports dyspnea on exertion Resp Reports change in phlegm color, Reports chest congestion, Reports cough, Reports pain with cough, Reports dyspnea on exertion and Reports wheezing GI Reports abdominal pain Musc Reports as per HPI and Reports back pain Neuro Denies Neuro-related abnormal movements, Reports dizziness and Reports headache(s) Psych Denies no additional complaints Rip/Lymph Denies easy bleeding and Denies lymphadenopathy Aller/Immun Denies lip swelling, Denies tongue swelling and Reports wheezing Physical Exam Vital Signs: Last Vital Signs Pulse 77 10/29/23 10:36 Pulse Ox 96 10/29/23 10:36 Oxygen Delivery Method Room Air 10/29/23 10:36 BMI result Body Mass Index 29.0 Const General: alert Neck Neck: Yes normal visual inspection, Yes full ROM and Yes no lymphadenopathy Chest Chest palpation & inspection: normal inspection of the chest Resp Auscultation: no rales, rhonchi, wheezes and diminished lung sounds Cardio Rate: regular rate Rhythm: regular rhythm Heart sounds: S1 normal heart sound present, S2 normal heart sound present and Murmur heart sound present GI Palpation (GI): Soft to palpation and nontender Auscultation: normal bowel sounds Skin General skin exam: rashes and/or lesions noted Assessment & Plan Assessment & Plan (1) Asthma: Code(s): J45.909 - Unspecified asthma, uncomplicated Qualifiers: Asthma severity: severe Asthma persistence: persistent Asthma complication type: uncomplicated Qualified Code(s): J45.50 - Severe persistent asthma, uncomplicated (2) Hypogammaglobulinemia: Code(s): D80.1 - Nonfamilial hypogammaglobulinemia (3) Pulmonary nodules: Code(s): R91.8 - Other nonspecific abnormal finding of lung field (4) Palpitations: Code(s): R00.2 - Palpitations (5) Bronchopneumonia: Code(s): J18.0 - Bronchopneumonia, unspecified organism Plan continue Trelegy 200mcg EL as needed start Doxycycline/vantin x 8-10 days consider restarting Azithromycin MWF continue IVIG 40 gm Q4 weeks requesting bloodwork and IgG through next week Nasal therapy: fluticasone and astelin nebulizer therapy BID and as needed sputum culture if no better Prednisone if worsening wheezing/bronchospasms CXR if no better continue singulair F/U 2-3 months Orders: Orders Immunoglobulin G Subclasses Today J18.0 - Bronchopneumonia, unspecified organism SARS COV2 IgG Today J18.0 - Bronchopneumonia, unspecified organism Complete Blood Count Auto Diff Today J18.0 - Bronchopneumonia, unspecified organism Erythrocyte Sedimentation Rate Today J18.0 - Bronchopneumonia, unspecified organism Basic Metabolic Panel Today J18.0 - Bronchopneumonia, unspecified organism Sputum Cult + Gram stain Today J18.0 - Bronchopneumonia, unspecified organism Medications: New cefpodoxime must administer with a meal/food 200 mg PO BID 10 days 20 tabs 0RF prednisone PO daily; Take 2 tabs daily x 5 days, then 1 tablet daily x 5 days 10 days 15 tabs 0RF Changed From doxycycline monohydrate 100 mg PO BID 14 days 28 tabs 0RF To doxycycline monohydrate 100 mg PO BID 10 days 20 tabs 0RF Coding Level of Care Code Est Pt Level 4 (92842) Diagnoses Severe persistent asthma without complication J45.50 Asthma severity: severe Asthma persistence: persistent Asthma complication type: uncomplicated Hypogammaglobulinemia D80.1 Pulmonary nodules R91.8 Palpitations R00.2 Bronchopneumonia J18.0 Time Spent (min) 17
== END 2023-10-29 10:52 | disposition home or self-care (01) ==
PROVIDERS: PCP Internal Medicine; Visit Provider Hospitalist
DX: J45.50 Severe persistent asthma, uncomplicated (principal); D80.1 Nonfamilial hypogammaglobulinemia; R91.8 Other nonspecific abnormal finding of lung field; R00.2 Palpitations; J18.0 Bronchopneumonia, unspecified organism
CPT/HCPCS: 99214

== ENCOUNTER → 2023-10-29 10:19 | Outpatient (BNVA) | payer MEDICARE, MEDICAID, SELFPAY | PROVIDERS: PCP Internal Medicine; Visit Provider Hospitalist | DX: J45.50 Severe persistent asthma, uncomplicated (principal); D80.1 Nonfamilial hypogammaglobulinemia; R91.8 Other nonspecific abnormal finding of lung field; R00.2 Palpitations; J18.0 Bronchopneumonia, unspecified organism; Z79.899 Other long term (current) drug therapy | CPT/HCPCS: 99212 ==

== ENCOUNTER 2023-11-02 08:52 | Outpatient (REF) | payer MEDICARE, MEDICAID, SELFPAY ==
[2023-11-02] VITALS (9 sets, daily range): BP systolic 110–125; BP diastolic 51–89; PULSE 64–84; RESP 18; TEMP 36.7; O2SAT 99
[2023-11-02] MEDS: Immun Glob G(IgG)/Gly/IGA Ov50 200 ML IV ×2 (09:37→11:30)
--- NOTE | 2023-11-02 09:38 | HO.INF ---
patient arrived to [facility] with labs to be drawn in hand. labs booked, phlebotomy called. 9am labs drawn, patient aware sputum test needs to be obtained and sent to lab.
[2023-11-02 10:15] LABS: Erythrocyte Sedimentation Rate 4 MM/HR (0-20)
[2023-11-03 15:09] LABS: Immunoglobulin G Subclass 1 353 mg/dL (382-929); Immunoglobulin G Subclass 2 282 mg/dL (241-700); Immunoglobulin G Subclass 3 52 mg/dL (22-178); Immunoglobulin G Subclass 4 6.2 mg/dL (4-86); Immunoglobulin G Total 668 mg/dL (600-1640)
[2023-11-05 17:08] LABS: SARS COV2 IgG Negative (Negative)
== END 2023-11-02 08:53 | disposition home or self-care (01) ==
LOC: HO.MDS 08:52
PROVIDERS: Visit Provider Hospitalist
DX: D80.1 Nonfamilial hypogammaglobulinemia (principal); Z11.52 Encounter for screening for COVID-19; Z20.822 Contact with and (suspected) exposure to COVID-19; J18.0 Bronchopneumonia, unspecified organism
CPT/HCPCS: 36415; 82784; 85652; 86769; 96365; 96366; J1569